=== PATIENT | female | born 1965 | race Caucasian/White ===

== ENCOUNTER 2020-03-29 11:20 | Emergency (ER) | payer BC, OTHER, SELFPAY ==
[2020-03-29 11:33] VITALS: BP 129/59; PULSE 78; RESP 14; TEMP 36.6; O2SAT 100
--- NOTE | 2020-03-29 11:37 | ED.GENADULT ---
HPI - General Adult General Chief complaint: Upper Respiratory Infection Stated complaint: sore throat Time Seen by Provider: 03/29/20 11:37 Source: patient and RN notes reviewed Mode of arrival: ambulatory Limitations: no limitations History of Present Illness HPI narrative: 54-year-old female presents with complaints of sore throat for the past 30 days. Tylenol, last 2 days ago and daily sinus medication with little relief. Symptoms increase over the past 2 weeks with LT otalgia and sore throat. No high fevers, drooling, neck or throat swelling. Pain is bilateral. Hurts to swallow. Exacerbation factors consist of eating and drinking. No rhinorrhea. Nasal congestion. Denies cough or chest congestion. No voice change. No nausea, vomiting, or abdominal pain. Tolerating liquids well. Denies chills, dyspnea, difficulty swallowing, jaw pain, dental pain, facial pain, foreign body sensation, and rash. Remains active. The patient reports she had a recent NEGATIVE COVID-19 test on 03/19/20 due to her daughter being tested POSITIVE. The patient reports she is not waiting for the results of a COVID-19 lab test. The patient reports she do not have fever, chills, weakness, fatigue, myalgia, or facial swelling. The patient reports she do not have a new or worsening cough or shortness of breath. Denies chest pain. The patient reports she do not have any rhinorrhea, congestion, nausea, vomiting, abdominal pain, and diarrhea. Tolerating po intake well. Denies recent traveling. Denies concerns for COVID-19 or exposures been home with limited outdoor exposure except for essential household needs, work, and return home. At this time, patient is not suspected of having COVID-19. Some parts of this dictation were generated by voice recognition software and may contain typographical and/or grammatical inaccuracies. Related Data Home Medications Medication Instructions Recorded Confirmed estradiol 1 patch TRANSDERMAL WEEKLY 03/29/20 03/29/20 levothyroxine [Synthroid] 137 mcg PO DAILY 03/29/20 03/29/20 linaclotide [Linzess] 72 mcg PO DAILY 03/29/20 03/29/20 omeprazole 40 mg PO DAILY 03/29/20 03/29/20 Allergies Allergy/AdvReac Type Severity Reaction Status Date / Time ciprofloxacin Allergy Unknown THROAT Verified 03/29/20 11:43 SWELLS Penicillins Allergy Unknown throat Verified 03/29/20 11:43 swells Sulfa (Sulfonamide Allergy Unknown THROAT Verified 03/29/20 11:43 Antibiotics) CLOSES loratadine [From Claritin] Allergy Swelling Verified 03/29/20 11:44 of Lip/Tongue/Throat Review of Systems Review of Systems: Narrative: CONSTITUTIONAL: Denies fever, chills, sweats. EYES: Denies visual changes, redness, discharge. ENT: Denies rhinorrhea. Complains of sore throat, congestion, LT otalgia. CARDIOVASCULAR: Denies chest pain, palpitations, edema. RESPIRATORY: Denies dyspnea, wheezing, cough. GASTROINTESTINAL: Denies abdominal pain, nausea, vomiting, diarrhea. GENITOURINARY: Denies dysuria, hematuria, abnormal discharge. SKIN: Denies rash or itching. MUSCULOSKELETAL: Denies acute back pain, joint pain, or myalgia. NEUROLOGIC: Denies numbness or focal weakness. PSYCHIATRIC: Denies anxiety or depression. All systems reviewed & are unremarkable except as noted in HPI and below. [facility] Past Medical History Medical History (Updated 03/30/20 @ 00:00 by [facility]) delivery delivered X2 History of gastroesophageal reflux (GERD) Surgical History Surgical History (Updated 03/29/20 @ 12:05 by KIKE Carrillo) H/O section History of hysterectomy History of lumpectomy of left breast Benign History of shoulder surgery LT Family History Family History (Updated 03/29/20 @ 12:06 by KIKE Carrillo) Father Atrial fibrillation Mother History of gastroesophageal reflux (GERD) Lazaro disease Social History Social History (Updated 03/29/20 @ 12:07 by Cooper Aranda
== END 2020-03-29 12:05 | disposition home or self-care (01) ==
PROVIDERS: Emergency Provider Nurse Practitioner Family; PCP Internal Medicine
DX: J02.0 Streptococcal pharyngitis (principal)
CPT/HCPCS: 87804; 87880; 99213; G0463

== ENCOUNTER 2020-04-13 12:10 | Emergency (ER) | payer BC, OTHER, SELFPAY ==
[2020-04-13 12:20] VITALS: BP 114/60; PULSE 72; RESP 20; TEMP 36.8; O2SAT 100
--- NOTE | 2020-04-13 12:39 | ED.GENADULT ---
HPI - General Adult General Chief complaint: Upper Respiratory Infection Stated complaint: sore throat and mono test Time Seen by Provider: 04/13/20 12:39 Source: patient Mode of arrival: ambulatory Limitations: no limitations History of Present Illness HPI narrative: 54-year-old female patient presents to the [facility] with complaints of sore throat. Patient states she was seen here early March and was tested for strep and was positive. Patient states she was put on Z-Juan J at that time but states that her symptoms never did improve. Patient states that she did follow-up with her primary doctor and they put her on clindamycin and about 10 days into the antibiotic she developed allergic reaction to the clindamycin with throat swelling and neck swelling. Patient states that she was taken off of it over the weekend and states that she started feeling a little bit better but then her symptoms return yesterday and today with complaints of worsening sore throat. Denies any fevers, body aches or chills. Denies any cough, chest pain or shortness of breath. Patient states that she called her doctor today and was not able to get them but they recommended that she be tested for mono and strep again as well as possible COVID. Patient states that her daughter did have COVID back in February and she was tested shortly after in February but was negative. Related Data Home Medications Medication Instructions Recorded Confirmed estradiol 1 patch TRANSDERMAL WEEKLY 03/29/20 03/29/20 levothyroxine [Synthroid] 137 mcg PO DAILY 03/29/20 03/29/20 linaclotide [Linzess] 72 mcg PO DAILY 03/29/20 03/29/20 omeprazole 40 mg PO DAILY 03/29/20 03/29/20 Allergies Allergy/AdvReac Type Severity Reaction Status Date / Time ciprofloxacin Allergy Unknown THROAT Verified 04/13/20 12:45 SWELLS Penicillins Allergy Unknown throat Verified 04/13/20 12:45 swells Sulfa (Sulfonamide Allergy Unknown THROAT Verified 04/13/20 12:45 Antibiotics) CLOSES loratadine [From Claritin] Allergy Swelling Verified 04/13/20 12:45 of Lip/Tongue/Throat Review of Systems Review of Systems: Narrative: CONSTITUTIONAL: Denies fever, chills, or sweats. EYES: Denies visual changes, redness, or discharge. ENT: Denies rhinorrhea, congestion, positive sore throat, denies otalgia. CARDIOVASCULAR: Denies chest pain, palpitations, or edema. RESPIRATORY: Denies cough or dyspnea. GASTROINTESTINAL: Denies abdominal pain, nausea, vomiting, or diarrhea. GENITOURINARY: Denies dysuria or hematuria. SKIN: Denies rash or itching. MUSCULOSKELETAL: Denies back pain, joint pain, or myalgia. NEUROLOGIC: Denies headache, numbness, or weakness. PSYCHIATRIC: Denies anxiety or depression. [facility] Past Medical History Medical History delivery delivered X2 History of gastroesophageal reflux (GERD) Surgical History Surgical History H/O section History of hysterectomy History of lumpectomy of left breast Benign History of shoulder surgery LT Family History Family History Father Atrial fibrillation Mother History of gastroesophageal reflux (GERD) [place] disease Social History Social History Smoking status: Never smoker Tobacco type: cigarettes Second hand tobacco smoke exposure: Yes Alcohol intake: current Substance use: never Gender identity (if verbalized by the patient): Female Comments At the time of my signature I agree with nursing past medical history, surgical, social, and family history. There is no relevant family history pertinent to the presenting complaint. Exam Narrative: Exam Narrative: GENERAL: Well-appearing, well-nourished, and in no acute distress. HEAD: Normocephalic, atraumatic. EYES: PERRLA and EOMI.
== END 2020-04-13 13:25 | disposition home or self-care (01) ==
PROVIDERS: Emergency Provider Nurse Practitioner Family; PCP Internal Medicine
DX: Z20.828 Contact with and (suspected) exposure to other viral communicable diseases (principal); J02.9 Acute pharyngitis, unspecified; K21.9 Gastro-esophageal reflux disease without esophagitis
CPT/HCPCS: 36416; 86308; 87081; 87880; 99213; G0463

== ENCOUNTER 2021-11-06 08:37 | Emergency (ER) | payer BC, OTHER, SELFPAY ==
--- NOTE | 2021-11-06 08:38 | ED.GENADULT ---
HPI - General Adult General Chief complaint: Upper Respiratory Infection Stated complaint: Sore Throat Time Seen by Provider: 11/06/21 08:38 Source: patient Mode of arrival: ambulatory Limitations: no limitations History of Present Illness HPI narrative: 56-year-old female patient presents to the [facility] with complaints of a sore throat x1 week. Patient states she is fully vaccinated against COVID. Patient states in the last couple months she has had strep at least twice. Both times she thought she might have COVID it was tested and she tested positive for strep. Patient states she has never tested positive for Covid. Patient also reports that she was diagnosed and treated for breast cancer last year. Patient today complains of sore throat, mild cough and some drainage. Denies any fevers, body aches or chills. Related Data Home Medications Medication Instructions Recorded Confirmed estradiol 1 patch TRANSDERMAL WEEKLY 03/29/20 04/13/20 levothyroxine [Synthroid] 137 mcg PO DAILY 03/29/20 04/13/20 linaclotide [Linzess] 72 mcg PO DAILY 03/29/20 04/13/20 omeprazole 40 mg PO DAILY 03/29/20 04/13/20 Allergies Allergy/AdvReac Type Severity Reaction Status Date / Time ciprofloxacin Allergy Unknown THROAT Verified 11/06/21 09:18 SWELLS Penicillins Allergy Unknown throat Verified 11/06/21 09:18 swells Sulfa (Sulfonamide Allergy Unknown THROAT Verified 11/06/21 09:18 Antibiotics) CLOSES clindamycin Allergy Swelling Verified 11/06/21 09:18 loratadine [From Claritin] Allergy Swelling Verified 11/06/21 09:18 of Lip/Tongue/Throat Review of Systems Review of Systems: CONSTITUTIONAL: Denies fever, chills, or sweats. EYES: Denies visual changes, redness, or discharge. ENT: Denies rhinorrhea, congestion, positive sore throat, denies otalgia. CARDIOVASCULAR: Denies chest pain, palpitations, or edema. RESPIRATORY: Positive mild cough, denies dyspnea. GASTROINTESTINAL: Denies abdominal pain, nausea, vomiting, or diarrhea. GENITOURINARY: Denies dysuria or hematuria. SKIN: Denies rash or itching. MUSCULOSKELETAL: Denies back pain, joint pain, or myalgia. NEUROLOGIC: Denies headache, numbness, or weakness. PSYCHIATRIC: Denies anxiety or depression. [facility] Past Medical History Medical History (Updated 11/06/21 @ 09:35 by KIKE Blevins) Breast cancer 2020 delivery delivered X2 History of gastroesophageal reflux (GERD) Surgical History Surgical History H/O section History of hysterectomy History of lumpectomy of left breast Benign History of shoulder surgery LT Family History Family History Father Atrial fibrillation Mother History of gastroesophageal reflux (GERD) [place] disease Social History Social History Smoking status: Never smoker Tobacco type: cigarettes Second hand tobacco smoke exposure: Yes Alcohol intake: current Substance use: never Gender identity (if verbalized by the patient): Female Sexual Orientation (if Verbalized by the Patient): Straight or Heterosexual Comments At the time of my signature I agree with nursing past medical history, surgical, social, and family history. There is no relevant family history pertinent to the presenting complaint. Exam Narrative: GENERAL: Well-appearing, well-nourished, and in no acute distress. HEAD: Normocephalic, atraumatic. EYES: PERRLA and EOMI. ENT: Nares clear, no rhinorrhea or epistaxis. Mucous membranes moist. NECK: Supple. No lymphadenopathy CHEST: Clear to auscultation. No respiratory distress. HEART: Regular rate and rhythm. No murmur heard. Normal peripheral pulses. ABDOMEN: Soft, nontender, nondistended, normal active bowel sounds. EXTREMITIES: Normal range of motion. No edema. SKIN: Warm, dry, no rash. NEURO: No foca
[2021-11-06 08:44] VITALS: BP 126/46; PULSE 78; RESP 14; TEMP 36.4; O2SAT 99
[2021-11-08 08:05] LABS: SARS-CoV-2 RNA PCR Negative
== END 2021-11-06 09:42 | disposition home or self-care (01) ==
PROVIDERS: Emergency Provider Nurse Practitioner Family; PCP Internal Medicine
DX: J02.9 Acute pharyngitis, unspecified (principal); Z20.822 Contact with and (suspected) exposure to COVID-19; Z85.3 Personal history of malignant neoplasm of breast; K21.9 Gastro-esophageal reflux disease without esophagitis
CPT/HCPCS: 87081; 87426; 87880; 99213; C9803; G0463; U0003; U0005

== ENCOUNTER 2023-02-05 11:05 | Emergency (ER) | payer BC, OTHER, SELFPAY ==
[2023-02-05 11:11] VITALS: BP 115/47; PULSE 68; RESP 20; TEMP 36.7; O2SAT 99
--- NOTE | 2023-02-05 11:42 | ED.GENADULT ---
HPI - General Adult General Chief complaint: Upper Respiratory Infection Stated complaint: Sore Throat Source: patient Mode of arrival: ambulatory Limitations: no limitations History of Present Illness HPI narrative: Patient presents for evaluation of sore throat for last 2 days. She reports some sinus congestion, chest pressure and lymphadenopathy in the neck. No fever, chills, nausea, vomiting. She has been taking ibuprofen for her symptoms, which seems to help. No recent sick contacts to her knowledge. She does not smoke. Related Data Home Medications Medication Instructions Recorded Confirmed estradiol 0.075 mg/24 hr weekly 1 patch transdermal WEEKLY 03/29/20 02/05/23 transdermal patch levothyroxine 137 mcg tablet 137 mcg PO DAILY 03/29/20 02/05/23 (Synthroid) linaclotide 72 mcg capsule 72 mcg PO DAILY 03/29/20 02/05/23 (Linzess) omeprazole 40 mg capsule,delayed 40 mg PO DAILY 03/29/20 02/05/23 release cyanocobalamin (vitamin B-12) 1,000 mcg IM MONTHLY 02/05/23 02/05/23 1,000 mcg/mL injection solution metformin 500 mg tablet 500 mg PO DAILY 02/05/23 02/05/23 Allergies Allergy/AdvReac Type Severity Reaction Status Date / Time ciprofloxacin Allergy Unknown THROAT Verified 02/05/23 11:08 SWELLS Penicillins Allergy Unknown throat Verified 02/05/23 11:08 swells Sulfa (Sulfonamide Allergy Unknown THROAT Verified 02/05/23 11:08 Antibiotics) CLOSES clindamycin Allergy Swelling Verified 02/05/23 11:08 loratadine [From Claritin] Allergy Swelling Verified 02/05/23 11:08 of Lip/Tongue/Throat Review of Systems Review of Systems: CONSTITUTIONAL: Denies fever, chills, or sweats. EYES: Denies visual changes, redness, or discharge. ENT: Reports sore throat. denies rhinorrhea, congestion, sor otalgia. CARDIOVASCULAR: Reports some chest pressure. Denies chest pain, palpitations, or edema. RESPIRATORY: Denies cough or dyspnea. GASTROINTESTINAL: Denies abdominal pain, nausea, vomiting, or diarrhea. GENITOURINARY: Denies dysuria or hematuria. SKIN: Denies rash or itching. MUSCULOSKELETAL: Denies back pain, joint pain, or myalgia. LYMPHATICS: Reports cervical lymphadenopathy. NEUROLOGIC: Denies headache, numbness, dizziness, or weakness. PSYCHIATRIC: Denies anxiety or depression. [facility] Past Medical History Medical History Breast cancer 2020 delivery delivered X2 History of gastroesophageal reflux (GERD) Surgical History Surgical History H/O section History of hysterectomy History of lumpectomy of left breast Benign History of shoulder surgery LT Family History Family History Father Atrial fibrillation Mother History of gastroesophageal reflux (GERD) [place] disease Social History Social History Smoking status: Never smoker Tobacco type: cigarettes Second hand tobacco smoke exposure: Yes Alcohol intake: current Substance use: never Living arrangements: with family Occupation/Education: occupation Gender identity (if verbalized by the patient): Female Sexual Orientation (if Verbalized by the Patient): Straight or Heterosexual Exam Narrative: GENERAL: Well-appearing, well-nourished, and in no acute distress. HEAD: Normocephalic, atraumatic. EYES: PERRLA and EOMI. ENT: Nares clear, no rhinorrhea or epistaxis. Mucous membranes moist. Posterior pharyngeal erythema without exudate. Uvula is midline. Bilateral TMs pearly luo nonbulging NECK: Supple. No adenopathy or masses. No carotid bruits or JVD CHEST: Clear to auscultation. No respiratory distress. No wheezes rales or rhonchi HEART: Regular rate and rhythm. No murmur heard. Normal peripheral pulses. ABDOMEN: Soft, nontender,
== END 2023-02-05 11:42 | disposition home or self-care (01) ==
PROVIDERS: Emergency Provider Nurse Practitioner; PCP Internal Medicine
DX: J02.0 Streptococcal pharyngitis (principal); K21.9 Gastro-esophageal reflux disease without esophagitis; Z85.3 Personal history of malignant neoplasm of breast; Z90.12 Acquired absence of left breast and nipple
CPT/HCPCS: 87880; 99213; G0463

== ENCOUNTER 2023-02-16 16:08 | Emergency (ER) | payer BC, OTHER, SELFPAY ==
[2023-02-16 16:12] VITALS: BP 114/45; PULSE 72; RESP 20; TEMP 36.4; O2SAT 100
--- NOTE | 2023-02-16 16:27 | ED.URI ---
HPI - URI/Sore Throat General Chief Complaint: Upper Respiratory Infection Stated Complaint: sore throat History of Present Illness HPI Narrative: Pt is a 57 y/o female, returns to with sore throat, onset 3 days ago without associated fevers. She notes she was diagnosed with and treated for strep 02/05/2023, she completed a Z pack and her symptoms improved but never seemed to resolve fully. She now has pain in the left ear as well. She denies associated CP, SOB, cough, abdominal pain, NVDC or urinary symptoms. SHe is taking APAP for discomfort with moderate relief. She has no other complaints. Related Data Home Medications Medication Instructions Recorded Confirmed estradiol 0.075 mg/24 hr weekly 1 patch transdermal WEEKLY 03/29/20 02/16/23 transdermal patch levothyroxine 137 mcg tablet 137 mcg PO DAILY 03/29/20 02/16/23 (Synthroid) linaclotide 72 mcg capsule 72 mcg PO DAILY 03/29/20 02/16/23 (Linzess) omeprazole 40 mg capsule,delayed 40 mg PO DAILY 03/29/20 02/16/23 release cyanocobalamin (vitamin B-12) 1,000 mcg IM MONTHLY 02/05/23 02/16/23 1,000 mcg/mL injection solution metformin 500 mg tablet 500 mg PO DAILY 02/05/23 02/16/23 Allergies Allergy/AdvReac Type Severity Reaction Status Date / Time ciprofloxacin Allergy Unknown THROAT Verified 02/16/23 16:23 SWELLS Penicillins Allergy Unknown throat Verified 02/16/23 16:23 swells Sulfa (Sulfonamide Allergy Unknown THROAT Verified 02/16/23 16:23 Antibiotics) CLOSES clindamycin Allergy Swelling Verified 02/16/23 16:23 loratadine [From Claritin] Allergy Swelling Verified 02/16/23 16:23 of Lip/Tongue/Throat Review of Systems Constitutional: Comments: refer to HPI, no fever ENT: Comments: refer to HPI Respiratory: Comments: no cough PMFSH Past Medical History Medical History Breast cancer 2020 delivery delivered X2 History of gastroesophageal reflux (GERD) Surgical History Surgical History H/O section History of hysterectomy History of lumpectomy of left breast Benign History of shoulder surgery LT Family History Family History Father Atrial fibrillation Mother History of gastroesophageal reflux (GERD) Lazaro disease Social History Social History Smoking status: Never smoker Tobacco type: cigarettes Second hand tobacco smoke exposure: Yes Alcohol intake: current Substance use: never Living arrangements: with family Occupation/Education: occupation Gender identity (if verbalized by the patient): Female Sexual Orientation (if Verbalized by the Patient): Straight or Heterosexual Exam Const: General: cooperative, healthy appearing, comfortable, no acute distress, well developed, alert, awake and Physically active Nutritional Appearance: average body habitus Orientation/consciousness: oriented to person Limitations: no limitations HENMT: Head: normal to inspection, No palpable skull fracture present, normocephalic and atraumatic Ears: hearing grossly normal bilaterally and external ears normal Mouth: Yes Normal oral and palatal mucosa present and Yes lip normal Throat: posterior oropharynx normal, postnasal drainage and tonsils absent Other: pt has marked retraction of the left TM with a serous pattern present. No erythema or purulent effusion noted. The right TM has a serous pattern without TM retraction. Eyes: General: appearance normal, both eyes and all related structures Visual Thibodeaux: normal visual thibodeaux by confrontation Pupils: Equal, round and reactive pupils present EOM: EOMs intact bilaterally Neck: Neck: normal visual inspection, full ROM, no lymphadenopathy, no meningeal signs, trachea
== END 2023-02-16 16:43 | disposition home or self-care (01) ==
PROVIDERS: Emergency Provider Nurse Practitioner Family; PCP Internal Medicine
DX: H65.02 Acute serous otitis media, left ear (principal); H69.92 Unspecified Eustachian tube disorder, left ear; Z85.3 Personal history of malignant neoplasm of breast; K21.9 Gastro-esophageal reflux disease without esophagitis
CPT/HCPCS: 87081; 87880; 99213; G0463

== ENCOUNTER 2024-05-07 16:08 | Emergency (ER) | payer BC, OTHER, SELFPAY ==
[2024-05-07 16:21] VITALS: BP 131/60; PULSE 72; RESP 18; TEMP 36.4; O2SAT 100
[2024-05-07 17:16] LABS: EDCOVIDSCREEN Negative (Negative); EDSTREPNEGPOS1 Negative (Negative)
[2024-05-07 17:20] LABS: EDINFLUASCREEN Negative (Negative); EDINFLUBSCREEN Negative (Negative)
--- NOTE | 2024-05-07 17:28 | ED.URI ---
HPI - URI/Sore Throat General Chief Complaint: Upper Respiratory Infection Stated Complaint: Sore Throat/Fever Time Seen by Provider: 05/07/24 17:20 Source: patient Mode of arrival: ambulatory Limitations: no limitations History of Present Illness HPI Narrative: 58 year old female presents to [facility] care with complaints of sore throat, sinus congestion, low grade fever, chills since Monday evening. Patient reports that she just returned from [place] and other she went with are ill. 2 have similar sinus stuff and one has COVID. Patient reports that her tongue is burning and her taste is off. Patient reports that she has been taking NyQuil for her symptoms MD elicited complaint: fever, sore throat, rhinorrhea and nasal congestion Onset (ago): day(s) (3 days) Pain scale (0-10): 3 Able to tolerate fluids by mouth: Yes Treatments prior to arrival: other (NyQuil) Related Data Home Medications Medication Instructions Recorded Confirmed estradiol 0.075 mg/24 hr weekly 1 patch transdermal WEEKLY 03/29/20 02/16/23 transdermal patch levothyroxine 137 mcg tablet 137 mcg PO DAILY 03/29/20 02/16/23 (Synthroid) linaclotide 72 mcg capsule 72 mcg PO DAILY 03/29/20 02/16/23 (Linzess) omeprazole 40 mg capsule,delayed 40 mg PO DAILY 03/29/20 02/16/23 release cyanocobalamin (vitamin B-12) 1,000 mcg IM MONTHLY 02/05/23 02/16/23 1,000 mcg/mL injection solution metformin 500 mg tablet 500 mg PO DAILY 02/05/23 02/16/23 bupropion HCl 150 mg 24 hr tablet, mg PO 05/07/24 05/07/24 extended release pantoprazole 40 mg tablet,delayed mg PO 05/07/24 release topiramate 25 mg tablet mg 05/07/24 Allergies Allergy/AdvReac Type Severity Reaction Status Date / Time ciprofloxacin Allergy Unknown THROAT Verified 02/16/23 16:23 SWELLS Penicillins Allergy Unknown throat Verified 02/16/23 16:23 swells Sulfa (Sulfonamide Allergy Unknown THROAT Verified 02/16/23 16:23 Antibiotics) CLOSES clindamycin Allergy Swelling Verified 02/16/23 16:23 loratadine [From Claritin] Allergy Swelling Verified 02/16/23 16:23 of Lip/Tongue/Throat Review of Systems Review of Systems: CONSTITUTIONAL: Report malaise, chills, sweats, or fever. EYES: Denies visual changes, redness, or discharge. ENT: Reports rhinorrhea, congestion, sinus pain, no otalgia and positive for sore throat. CARDIOVASCULAR: Denies chest pain, palpitations, or edema. RESPIRATORY: Reports rare cough.? Denies dyspnea. GASTROINTESTINAL: Denies abdominal pain, nausea, vomiting, diarrhea SKIN: Denies rash or itching. MUSCULOSKELETAL: Denies myalgia. NEUROLOGIC: positive for headache. All systems reviewed & are unremarkable except as noted in HPI and below PMFSH Past Medical History Medical History Breast cancer 2020 delivery delivered X2 History of gastroesophageal reflux (GERD) Surgical History Surgical History H/O section History of hysterectomy History of lumpectomy of left breast Benign History of shoulder surgery LT Family History Family History Father Atrial fibrillation Mother History of gastroesophageal reflux (GERD) [place]azaro disease Social History Social History Smoking status: Never smoker Tobacco type: cigarettes Second hand tobacco smoke exposure: Yes Alcohol intake: current Substance use: never Living arrangements: with family Occupation/Education: occupation Gender identity (if verbalized by the patient): Female Sexual Orientation (if Verbalized by the Patient): Straight or Heterosexual Comments At time of signature, agree with nursing past medical, surgical, social and family history. There is no relevant family history pertinent to the presenting compla
== END 2024-05-07 17:43 | disposition home or self-care (01) ==
PROVIDERS: Emergency Provider Registered Nurse; PCP Internal Medicine
DX: J06.9 Acute upper respiratory infection, unspecified (principal); J02.9 Acute pharyngitis, unspecified; Z20.822 Contact with and (suspected) exposure to COVID-19; K21.9 Gastro-esophageal reflux disease without esophagitis; Z85.3 Personal history of malignant neoplasm of breast; Z90.12 Acquired absence of left breast and nipple
CPT/HCPCS: 87081; 87635; 87804; 87880; 99213; G0463

== ENCOUNTER 2024-11-22 09:03 | Emergency (ER) | payer BC, OTHER, SELFPAY ==
[2024-11-22 09:07] VITALS: BP 110/54; PULSE 81; RESP 16; TEMP 36.3; O2SAT 96
--- NOTE | 2024-11-22 09:18 | ED_ITS ---
HPI - URI/Sore Throat General Chief Complaint: Headache Stated Complaint: poss sinus infection Time Seen by Provider: 11/22/24 09:22 Source: patient and RN notes reviewed Mode of arrival: ambulatory Limitations: no limitations History of Present Illness HPI Narrative: 59 y/o female with history of migraines presented for complaint of frontal headache and left ear pain. Onset yesterday. She reports she had a headache to back of head 2 nights ago for which she took advil and sinus med. Currently says the left ear pain is mild. Denies tinnitus, dizziness, ear drainage, nasal congestion or drainage, n/v/d/f/c. MD elicited complaint: cough Related Data Home Medications ?Medication ?Instructions ?Recorded ?Confirmed ?Last Taken ?Type estradiol 0.075 mg/24 hr weekly 1 patch transdermal WEEKLY 03/29/20 02/16/23 Unknown History transdermal patch levothyroxine 137 mcg tablet 137 mcg PO DAILY 03/29/20 02/16/23 Unknown History (Synthroid) linaclotide 72 mcg capsule 72 mcg PO DAILY 03/29/20 02/16/23 Unknown History (Linzess) omeprazole 40 mg capsule,delayed 40 mg PO DAILY 03/29/20 02/16/23 Unknown History release cyanocobalamin (vitamin B-12) 1,000 mcg IM MONTHLY 02/05/23 02/16/23 Unknown History 1,000 mcg/mL injection solution metformin 500 mg tablet 500 mg PO DAILY 02/05/23 02/16/23 Unknown History bupropion HCl 150 mg 24 hr tablet, mg PO 05/07/24 05/07/24 Unknown History extended release pantoprazole 40 mg tablet,delayed mg PO 05/07/24 Unknown History release topiramate 25 mg tablet mg 05/07/24 Unknown History Allergies Allergy/AdvReac Type Severity Reaction Status Date / Time ciprofloxacin Allergy Unknown THROAT Verified 11/22/24 09:23 SWELLS Penicillins Allergy Unknown throat Verified 11/22/24 09:23 swells Sulfa (Sulfonamide Allergy Unknown THROAT Verified 11/22/24 09:23 Antibiotics) CLOSES clindamycin Allergy Swelling Verified 11/22/24 09:23 loratadine (From Claritin) Allergy Swelling Verified 11/22/24 09:23 of Lip/Tongue/Throat Review of Systems Review of Systems: CONSTITUTIONAL: denies malaise, chills, sweats, fever EYES: Denies visual changes, redness, or discharge ENT:denies rhinorrhea, congestion, sinus pain, sore throat reports left ear pain CARDIOVASCULAR: Denies chest pain, palpitations, edema RESPIRATORY: Reports cough, post nasal drainage. Denies dyspnea GASTROINTESTINAL: Denies abdominal pain, nausea, vomiting, diarrhea SKIN: Denies rash or itching MUSCULOSKELETAL: Endorses myalgia NEUROLOGIC: reports frontal headache All systems reviewed & are unremarkable except as noted in HPI and below PMFSH Past Medical History Medical History Breast cancer 2020 delivery delivered X2 History of gastroesophageal reflux (GERD) Surgical History Surgical History H/O section History of hysterectomy History of lumpectomy of left breast Benign History of shoulder surgery LT Family History Family History Father Atrial fibrillation Mother History of gastroesophageal reflux (GERD) Schoolcraft disease Social History Social History Smoking status: Never smoker Tobacco type: cigarettes Second hand tobacco smoke exposure: Yes Alcohol intake: current Substance use: never Living arrangements: with family Occupation/Education: occupation Gender identity (if verbalized by the patient): Female Sexual Orientation (if Verbalized by the Patient): Straight or Heterosexual Comments At time of signature, I have reviewed and agree with nursing past medical, surgical, social and family history unless otherwise noted. Please see nursing chart for further information. There is no relevant family history pertinent to the presenting complaint Exam Narrative: GENERAL: well-appearing, nontoxic no acute distress. HEAD: Normocephalic EYES: conjunctivae clear ENT: Mucous membranes moist. No nasal drainage. TMs pearly luo with dull light reflex bilaterally; no tragal tenderness. NECK: Supple. No lymphadenopathy CHEST: Clear to auscultation, breath sounds equal. HEART: Regular rate and rhythm. SKIN: Warm, dry, no rash. NEURO: Alert and oriented x3. Course Course Emergency Course: Patient is aware of diagnosis, understands and agrees to treatment plan. Anticipatory guidance given. Patient agrees to follow-up as directed and is aware of reasons to seek care at the emergency department. Portions of this record may have been created with voice recognition software Level of Care: Express Care Visit Vital Signs Vital signs: Vital Signs Temperature 97.3 F L 11/22/24 09:07 Pulse Rate 81 11/22/24 09:07 Respiratory Rate 16 11/22/24 09:07 Blood Pressure 110/54 L 11/22/24 09:07 Pulse Oximetry 96 11/22/24 09:07 Oxygen Delivery Room Air 11/22/24 09:07 Temperature 97.3 F L 11/22/24 09:07 Pulse Rate 81 11/22/24 09:07 Respiratory Rate 16 11/22/24 09:07 Blood Pressure 110/54 L 11/22/24 09:07 Pulse Oximetry 96 11/22/24 09:07 Oxygen Delivery Room Air 11/22/24 09:07 reviewed MDM - URI/Sore Throat MDM Narrative Medical decision making narrative: Discussed physical exam findings, No apparent otitis media. Advised supportive measures and signs/symptoms to go to the ER. Pt is appropriate for outpt treatment and f/u. Differential Diagnosis Differential diagnosis: Likely upper respiratory infection, sinusitis and viral infection Discharge Plan Discharge Clinical Impression: Headache Patient Disposition: Home, Self-Care Condition: Stable Instructions: Antibiotic Form, Migraine Headache (ED) Additional Instructions: Rest in a cool dark room Avoid screens (computers, tablets, phones, television) Drink plenty fluids. Continue antihistamine Tylenol 1000mg every 8 hours as needed, ibuprofen as prescribed ( do not take additional NSAIDs Advil, Aleve, naproxen, Motrin) Follow up with your primary care provider in 1 week Go to the ER for worsening symptoms or concerns Patient Language: Azerbaijani Prescriptions: New ibuprofen 800 mg tablet 800 mg PO TID PRN (Reason: pain) Qty: 15 0RF No Action levothyroxine [Synthroid] 137 mcg Tablet 137 mcg PO DAILY omeprazole 40 mg Capsule,Delayed Release(Dr/Ec) 40 mg PO DAILY estradiol 0.075 mg/24 hr Patch Weekly 1 patch TRANSDERMAL WEEKLY Linzess 72 mcg Capsule 72 mcg PO DAILY metformin 500 mg tablet 500 mg PO DAILY cyanocobalamin (vitamin B-12) 1,000 mcg/mL solution 1,000 mcg IM MONTHLY topiramate 25 mg tablet pantoprazole 40 mg tablet,delayed release (DR/EC) PO bupropion HCl 150 mg tablet extended release 24 hr PO fluconazole [Diflucan] 150 mg tablet 150 mg PO Q72H Qty: 2 0RF Rx Instructions: as a single dose Follow-up/Referrals: Aleah,Maximiliano Aranda MD [Primary Care Provider] -
--- OUTSIDE RECORDS SUMMARY | 2024-11-22 09:24 | XMS_ITS | Encounter Summary ---
Author Organization [facility] Address [address] [place] [address] Phone Care Team Providers Care Lead Systems Analyst Name Role Phone Maximiliano Bullard MD Primary Care Provider [phone] Danyell Goldberg APRN, PHYSICIAN REPRESENTATIVE Unavailable Reason for Visit * Reason Comments Medication Refill Encounter Details Date Type Department Care Team (Late st Contact Info) Description 02/23/2022 Refill [facility] - G[facility]ology - [place] [address] [place] [id number] Kian Marilee Funmilayo, PAC [address] [place] [address] Medication Refill Social History Tobacco Use Types Packs/Day Years Used Date Smoking Tobacco: Never Smokeless Tobacco: Never Alcohol Use Standard Drinks/Week Comments Yes 2 (1 standard drink = 0.6 oz pur e alcohol) 1-2x weekly Sexually Active Control Partners Comments Yes Comments No Sex and Gender Information Value Date Recorded Sex Assigned at Not on file Legal Sex Female 12:23 AM CDT Gender Identity Not on file Sexual Orientation Not on file 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 Pt had no questions at this time. * Telephone Encounter - Marilee Langston PAC - 02/24/2022 4:43 PM CDT Please advise prescription was renewed for 90 days. Further refills are to be a obtained from her primary care provider she will follow-up with GI in 3 years for her EGD. Follow-up for IBS in 1 year. * Telephone Encounter - Mackenzie Arroyo RN - 02/24/2022 4:31 PM CDT Pantoprazole order pended, please review and advise. Per ov note from 10/26/2021 patient is to follow up in about 1 year (around 10/26/2022) for GERD and IBS. Per EGD path report from 11/26/2021: Yaya Nicholson MD 12/07/2021 ??6:14 PM CDT Mild inflammation only No Morin's esophagus noted. Continue Protonix for acid reflux and may reduce it to 1 every other day if symptoms are under control Repeat EGD in 3 years Follow-up with PCP and return to GI as needed documented in this encounter Plan of Treatment Upcoming Encounters Date Type Department Care Team (Late st Contact Info) Description 07/30/2025 2:00 PM PERSONNEL COORDINATOR Office Visit [facility] Oncology Services [address] [place] [phone] Héctor Casanova MD [address] [place] [address] Discharge Disposition: Discharged to home or Selfcare documented as of this encounter Visit Diagnoses Diagnosis Gastroesophageal reflux disease Esophageal reflux documented in this encounter Care Teams Lead Systems Analyst Relationship Specialty Start Date End Date Maximiliano Bullard MD [address] [place] [phone] PCP - General 04/21/16 Danyell Goldberg APRN, PHYSICIAN REPRESENTATIVE [address] [place] [address] Nurse Practitioner Advanced Practice Nurse 12/05/22 documented as of this encounter
--- OUTSIDE RECORDS SUMMARY | 2024-11-22 09:24 | XMS_ITS | Encounter Summary ---
Author Organization [facility] Address [address] 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 No / Unsure 11/26/2021 6:43 AM CDT documented as of this encounter Miscellaneous Notes * Telephone Encounter - Mackenzie Arroyo RN - 12/02/2021 8:55 AM CDT Medication refilled and signed per [facility] chronic medication standing order for pediatric and adult patients. documented in this encounter Plan of Treatment Upcoming Encounters Date Type Department Care Team (Late st Contact Info) Description 07/30/2025 2:00 PM BIZTALK ARCHITECT [facility] [address] [place] [address] Héctor Casanova MD [address] [place] [address] Discharge Disposition: Discharged to home or Selfcare documented as of this encounter Visit Diagnoses Diagnosis Gastroesophageal reflux disease Esophageal reflux documented in this encounter Care Teams Single Stayer Operator Relationship Specialty Start Date End Date Maximiliano Bullard MD [address] [place] [phone] PCP - General 04/21/16 Danyell Goldberg SCHOOL SPEECH LANGUAGE PATHOLOGIST, ENCODING MACHINE OPERATOR [address] [place] [address] Nurse Practitioner Advanced Practice Nurse 12/05/22 documented as of this encounter
--- OUTSIDE RECORDS SUMMARY | 2024-11-22 09:24 | XMS_ITS ---
Author Organization [facility] Address [address] [place] [address] Phone Care Team Providers Care Journeyman Molder Name Role Phone Unavailable Unavailable Unavailable Plan of Treatment No Plan of Treatment Recorded Assessments Includes: Assessments for all patient encounters No Assessments Recorded Medical Equipment - Implanted Devices Includes: Current and historical Devices No Medical Equipment Recorded Medications Administered Includes: Administered Medications in patient's chart No Administered Medications Recorded Results Includes: Results from 11/23/2023 through 11/22/2024 No Results Recorded For Specified Dates History of Present Illness History of Present Illness not supported for this document type No History of Present Illness Recorded Social History No Social History Recorded - Smoking Status Unknown Medical History Includes: Medical History in patient's chart No Medical History Recorded Family History Includes: Family History in patient's chart No Family History Recorded Review of Systems Review of Systems not supported for this document type No Review of Systems Recorded Mental Status No Mental Status Recorded Functional Status No Functional Status Recorded Physical Exam Physical Exam not supported for this document type No Physical Exam Recorded Clinical Notes Includes: Signed Clinical Notes starting from 09/16/2022 No Clinical Notes Recorded
--- OUTSIDE RECORDS SUMMARY | 2024-11-22 09:25 | XMS_ITS | Clinical Summary ---
Author Organization [facility] Address [address] [place] [address] Phone Care Team Providers Care Label Cutter Name Role Phone Unavailable Unavailable Unavailable Reason for Visit and Chief Complaint NEW PATIENT VISIT Plan of Treatment No Plan of Treatment Recorded Assessments Includes: Assessments from this encounter No Assessments Recorded Medical Equipment - Implanted Devices Includes: Current Devices No Medical Equipment Recorded Medications Administered Includes: Administered Medications from this encounter No Administered Medications Recorded Results Includes: Results discussed during this encounter No Results Recorded For Specified Dates History of Present Illness Includes: History of Present Illness from this encounter No History of Present Illness Recorded Social History No Social History Recorded - Smoking Status Unknown Medical History Includes: Medical History addressed during this encounter No Medical History Recorded Family History Includes: Family History addressed during this encounter No Family History Recorded Review of Systems Includes: Review of Systems from this encounter No Review of Systems Recorded Mental Status Includes: Mental Status from this encounter No Mental Status Recorded Functional Status Includes: Functional Status from this encounter No Functional Status Recorded Physical Exam Includes: Physical Exam from this encounter No Physical Exam Recorded Encounters Encounter Provider Location Date Check-In Time Check- Out Time Diagnosis NEW PATIENT VISIT [facility] 8 3:30PM 11:59PM Clinical Notes Includes: Clinical Notes from this encounter No Clinical Notes Recorded
--- OUTSIDE RECORDS SUMMARY | 2024-11-22 09:25 | XMS_ITS | Encounter Summary ---
Author Organization [facility] Address [address] [place] [address] Care Team Providers Care Home Health Clinician Name Role Phone Maximiliano Bullard MD Primary Care Provider [phone] Reason for Visit * Reason Onset Date Comments closing case 12/27/2021 Encounter Details Date Type Department Care Team (Late st Contact Info) Description 12/27/2021 Telephone [facility] Primary Care [address] [place] [address] Maximiliano Bullard MD [address] [place] [address] [address] [place] [address] closing case Social History Tobacco Use Types Packs/Day Years Used Date Smoking Tobacco: Never Smokeless Tobacco: Never Alcohol Use Standard Drinks/Week Comments Yes 5 (1 standard drink = 0.6 oz pur e alcohol) Comments No Sex and Gender Information Value Date Recorded Sex Assigned at Not on file Legal Sex Female 3:31 AM CERTIFIED PROSTHETIST/ORTHOTIST Gender Identity Not on file Sexual Orientation Not on file documented as of this encounter Miscellaneous Notes * Telephone Encounter - Joaquina Luciano Catalina - 12/27/2021 12:52 PM CDT Name of PCP Provider or Prescribing Provider: Maximiliano Bullard MD Next office visit: 05/16/2022 Caller: Linda horse stud manager at [facility] Message: Linda called stating she was Unable to reach patient, Linda stated they will be closing patient case. Please advise. Call back Number: [phone] documented in this encounter Plan of Treatment Upcoming Encounters Date Type Department Care Team (Late st Contact Info) Description 04/16/2025 3:00 PM CDT Office Visit [facility] Primary Care [address] [place] [address] Maximiliano Bullard MD [address] [place] [address] [address] [place] [address] documented as of this encounter Visit Diagnoses Not on filedocumented in this encounter Care Teams Home Health Clinician Relationship Specialty Start Date End Date Maximiliano Bullard MD PCP - General Internal Medicine 03/07/16 documented as of this encounter
--- OUTSIDE RECORDS SUMMARY | 2024-11-22 09:25 | XMS_ITS | Encounter Summary ---
Author Organization [facility] Address [address] [place] [address] Phone Care Team Providers Care Tunnel Drier Operator Name Role Phone Maximiliano Bullard MD Primary Care Provider [phone] Danyell Goldberg APRN, KEY FILER Unavailable Encounter Details Date Type Department Care Team (Late Contact Info) Description 10/28/2024 Results Follow-Up [facility] - Gastroenterology - [place] [address] [place] [address] Danyell Goldberg APRN, KEY FILER [address] [place] [address] Social History Tobacco Use Types Packs/Day Years Used Date Smoking Tobacco: Never Smokeless Tobacco: Never Alcohol Use Standard Drinks/Week Comments Yes 2 (1 standard drink = 0.6 oz pur e alcohol) Sexually Active Control Partners Comments Yes Male Comments No Sex and Gender Information Value Date Recorded Sex Assigned at Not on file Legal Sex Female 12:23 AM CDT Gender Identity Not on file Sexual Orientation Not on file 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 on fi le Not on file documented as of this encounter Plan of Treatment Upcoming Encounters Date Type Department Care Team (Late Contact Info) Description 07/30/2025 2:00 PM RN PERINATAL Office Visit [facility] - Cancer Center Oncology Services [address] [place] [phone] Héctor Casanova MD [address] [place] [address] Discharge Disposition: Discharged to home or Selfcare documented as of this encounter Visit Diagnoses Not on filedocumented in this encounter Care Teams Tunnel Drier Operator Relationship Specialty Start Date End Date Maximiliano Bullard MD [address] [place] [phone] PCP - General 04/21/16 Danyell Goldberg APRN, KEY FILER [address] [place] [address] Nurse Practitioner Advanced Practice Nurse 12/05/22 documented as of this encounter
--- OUTSIDE RECORDS SUMMARY | 2024-11-22 09:25 | XMS_ITS | Encounter Summary ---
Author Organization [facility] Address [address] [place] [address] Phone Care Team Providers Care Drilling Manager Name Role Phone Maximiliano Bullard MD Primary Care Provider + Jace Hernandez MD PhD Unavailable Diya Crfot MD PhD Unavaila ble Jaxson Baig MD Unavailable [phone] Encounter Details Date Type Department Care Team (Late st Contact Info) Description 11/03/2020 Telephone [facility] Oncology [facility] 7th [place] [address] Faviola Gaston Social History Tobacco Use Types Packs/Day Years Used Date Smoking Tobacco: Never Alcohol Use Standard Drinks/Week Comments Yes 0 (1 standard drink = 0.6 oz pur e alcohol) Comments No Sex and Gender Information Value Date Recorded Sex Assigned at Not on file Legal Sex Female 2:37 PM DIESEL SERVICE TECHNICIAN Gender Identity Female 10/24/2022 6:31 AM DIESEL SERVICE TECHNICIAN Sexual Orientation Straight 01/21/2021 6: 44 AM CDT documented as of this encounter Plan of Treatment Not on file documented as of this encounter Visit Diagnoses Not on filedocumented in this encounter Additional Health Concerns Infection Onset Date Last Indicated Resolved Time COVID: Suspected 09/10/2021 09/10/2021 09/10/2021 1:32 PM DIESEL SERVICE TECHNICIAN COVID: Suspected 09/10/2021 09/10/202109/1109/11/2021 11:37 AM DIESEL SERVICE TECHNICIAN documented as of this encounter Care Teams Drilling Manager Relationship Specialty Start Date End Date Maximiliano Bullard MD PCP - General 05/04/18 Jace Hernandez MD PhD [address] [place] [address] Radiation Oncologist Radiation Oncology 01/18/21 Diya Croft MD PhD [address] [place] [address] Referring Physician Surgical Oncology 01/18/21 Jaxson Baig MD [address] [place] [address] Consulting Physician Medical Oncology 03/26/21 documented as of this encounter
--- OUTSIDE RECORDS SUMMARY | 2024-11-22 09:25 | XMS_ITS ---
Care Plan - [facility] Created on: November 22, 2024 TERESITA MURRAY : 1965 Sex: Female Author Organization [facility] Address [address] [place] [address] Phone Care Team Providers Care Historical Archeologist Name Role Phone Unavailable Unavailable Unavailable
--- OUTSIDE RECORDS SUMMARY | 2024-11-22 09:25 | XMS_ITS | Encounter Summary ---
Author Organization [facility] Address [address] 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 Would provider be willing to review due to Dr. Fuentes is out of office until 11/26/2024. documented in this encounter Plan of Treatment Upcoming Encounters Date Type Department Care Team (Late st Contact Info) Description 07/30/2025 2:00 PM SUPERCALENDER OPERATOR Office Visit [facility] - Cancer Center Oncology Services [address] [place] [phone] Héctor Casanova MD [address] [place] [address] Discharge Disposition: Discharged to home or Selfcare documented as of this encounter Visit Diagnoses Not on filedocumented in this encounter Care Teams Slot Key Person Relationship Specialty Start Date End Date Maximiliano Bullard MD [address] [place] [phone] PCP - General 04/21/16 Danyell Goldberg APRN, MARKETING ROTATION ASSOCIATE [address] [place] [address] Nurse Practitioner Advanced Practice Nurse 12/05/22 documented as of this encounter
--- OUTSIDE RECORDS SUMMARY | 2024-11-22 09:25 | XMS_ITS | Clinical Summary ---
Author Organization [facility] Address [address] [address] Phone Care Team Providers Care Internal Audit Director Name Role Phone Maximiliano Bullard MD Primary Care Provider [phone] Danyell Goldberg APRN, RETAIL ZONE SPECIALIST Unavailable Allergies Active Allergy Reactions Criticality Noted Date Comments Sulfamethoxazole-Trimethoprim Anaphylaxis High 04/23 Ciprofloxacin Anaphylaxis High 12/28/2016 Loratadine Anaphylaxis High 12/22/2016 Coconut (Cocos Nucifera) Rash 03/07/2016 Walnuts Anaphylaxis High 01/23/2018 Penicillins Anaphylaxis High Medications EPINEPHRINE HCL, ANAPHYLAXIS, IM by Intramuscular route as needed. Active Cholecalciferol (VITAMIN D PO) Take 1 Cap by mouth daily. Active estradiol (CLIMARA) 0.05 MG/24HR PATCH WEEKLY 1 Patch by Transdermal route every 7 days. Active Cetirizine HCl (ZYRTEC ALLERGY PO) Take by mouth daily as needed. Active cyclobenzaprine (FLEXERIL) 10 MG Tablet TAKE ONE TABLET BY MOUTH THREE TIMES A DAY NEEDED FOR SPASMS 0 Active Synthroid 125 MCG Tablet Take 125 mcg by mouth daily. 0 Active B-D 3CC LUER-BIBIANA SYR 25GX1/2 25G X 1-1/2 3 ML Misc FOR B12 INJECTION MONTHLY. 0 Active Linzess 290 MCG Capsule TAKE 1 CAP BY MOUTH EVERY MORNING BEFORE BREAKFAST 30 Cap 2 1 Active Additional Information Patient taking differently: 290 mcg DAILY PRN, Reported on 11/15/2024 ALPRAZolam (XANAX) 0.25 MG Tablet Take 0.25 mg by mouth daily as needed for Anxiety. 1 Active Cyanocobalamin (B-12 IJ) by Injection route every 30 days. Active traMADol (ULTRAM) 50 MG TabletIndicatio ns:Kidney stone Take 1-2 Tablets by mouth every 6 hours as needed for Moderate or more severe pain. 12 Tablet 2 Active naproxen (NAPROSYN) 500 MG Tablet Take 1 Tablet by mouth 2 times daily as needed for Mild or more severe pain. 20 Tablet 2 Active Additional Information Patient not taking.Reported on 03/14/2023 estradiol (ESTRACE) 0.1 MG/GM Cream 0.01 g by Vaginal route. 3 Active famotidine (PEPCID) 20 MG TabletIndicatio ns:Gastroesopha geal reflux disease without esophagitis Take 1 Tablet by mouth every evening. 180 Tablet 1 3 Active Additional Information Patient taking differently:20 mg OralNIGHTLY PRN, Reported on 11/15/2024 buPROPion SR (WELLBUTRIN SR) 150 MG TABLET SR 12 HR Take 150 mg by mouth daily. Active naproxen (NAPROSYN) 500 MG Tablet Take 1 Tablet by mouth 2 times daily as needed for Moderate or more severe pain. 20 Tablet 4 Active Additional Information Patient not taking.Reported on 07/23/2024 DULoxetine (CYMBALTA) [address] Particles TAKE 1 CAPSULE BY MOUTH EVERY DAY 90 Capsule 4 Active Additional Information Patient not taking.Reported on 07/23/2024 Phentermine HCl 37.5 MG Tablet take 1 tablet by mouth daily before breakfast Active pantoprazole (PROTONIX) 40 MG Tablet Delayed ResponseIndicat ions:Urena's esophagus without dysplasia,Gastr oesophageal reflux disease without esophagitis Take 1 Tablet by mouth daily. 90 Tablet 3 4 Active Active Problems Problem Noted Date Diagnosed Date Fibromyalgia 10/24/2023 Mass of upper outer quadrant of right breast 11/2022 Lymphedema of breast 12/29/2022 History of right breast cancer 07/05/2021 Incomplete tear of right rotator cuff 01/25/2018 Hypothyroidism Overview (08/06/2015): Ablation Migraine headache Anxiety IBS (irritable bowel syndrome) Constipation Urena's esophagus Gastroesophageal reflux Resolved Problems Problem Noted Date Diagnosed Date Resolved Date Axillary lymphadenopathy 07/05/202111/2022 Breast pain, right 07/05/2021 Encounters Date Type Department Care Team Description 11/21/2024 Telephone [facility] - Gastroenterology - [place] [address] [place] [address] Cali Hwang MD Results 11/15/2024 8:54 AM CDT Anesthesia Event [facility] Gi Lab Periop [address] [place] [address] Anjel Koenig APRN, MACHINE INSPECTOR 11/15/2024 8:30 AM CDT - 11/15/2024 9:00 AM CDT Surgery [facility] Gi Lab Periop [address] [place] [address] Claudy Fuentes MD EGD- 2nd part dudenum biopsy-pre pyloric biopsy-antral polypectomy x1 biopsy forceps-ge junction r/o EOE biopsy-esophageal biopsy @ 25cm-esophageal biopsy @ 20cm 11/15/2024 7:50 AM CDT Ancillary Procedure [facility] Gi Lab Main [address] [place] [address] Claudy Fuentes MD 11/15/2024 7:39 AM CDT - 11/15/2024 10:02 AM CDT Hospital [facility] Preop/Pacu II [address] [place] [address] Claudy Fuentes MD Urena's esophagus Discharge Disposition: Discharged to home or Selfcare 11/15/2024 Travel 11/04/2024 Travel 10/28/2024 Telephone [facility] - [place] [address] [place] [address] Danyell Goldberg APRN, RETAIL ZONE SPECIALIST 10/28/2024 Results Follow-Up [facility] Gastroenterology [facility] [address] [place] [address] Danyell Goldberg APRN, RETAIL ZONE SPECIALIST 10/24/2024 9:45 AM WOOD BUCKER - 10/24/2024 11:59 PM WOOD BUCKER Hospital Encounter [facility] Diagnostic Radiology [address] [place] [address] Danyell Goldberg APRN, RETAIL ZONE SPECIALIST Discharge Disposition: Discharged to home or Selfcare 10/24/2024 Travel 10/21/2024 Telephone [facility] - [place] [address] [place] [address] Claudy Fuentes MD 10/21/2024 Telephone [facility] - [place] [address] [place] [address] Danyell Goldberg APRN, RETAIL ZONE SPECIALIST Abdominal Pain from Last 3 Months Immunizations Immunization Administration Dates Next Due Influenza Vaccine, Quadrivalent, PF 07/08/2021,1 10/15/2019 Influenza, Recombinant, Quadrivalent,injectable, Pf 10/03/2020 Influenza, Seasonal, Injectable, Undefined 07/28 Pneumococcal Vaccine Adult - 23 Valent TDAP Vaccine 09/03/2018,10/01/2007 Family History Medical History Relation Name Comments Heart Disease Brother Irregular hear t. Heart Disease Father Cancer Maternal Grandmother breast Migraines Mother Rashes/Skin Problems Mother Thyroid Disease Mother Cancer Paternal Grandfather Colon Cancer Paternal Grandfather Autoimmune Disease Sister SLE Cancer Sister Relation Name Status Comments Brother Father Alive Maternal Grandmother Mother Alive Paternal Grandfather Sister Social History Tobacco Use Types Packs/Day Years Used Date Smoking Tobacco: Never Smokeless Tobacco: Never Tobacco Cessation:Counseling Given: Not Answered Alcohol Use Standard Drinks/Week Comments Yes 2 (1 standard drink = 0.6 oz pur e alcohol) Sexually Active Control Partners Comments Yes Male Comments No Sex and Gender Information Value Date Recorded Sex Assigned at Not on file Legal Sex Female 12:23 AM CDT Gender Identity Not on file Sexual Orientation Not on file 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 Not on file Not on fi le Not on file Last Filed Vital Signs Vital Sign Reading Time Taken Comments Blood Pressure 125/59 11/15/2024 9:47 AM CDT Pulse 64 11/15/2024 9:47 AM CDT Temperature 37 C (98.6 F) 11/15/2024 9:47 AM CDT Respiratory Rate 15 11/15/2024 9:47 AM CDT Oxygen Saturation 100% 11/15/2024 9:47 AM CDT Inhaled Oxygen Concentration - - Weight 88.5 kg (195 lb) 11/04/2024 3:00 PM CDT Height 162.6 cm (5' 4 ) 11/04/2024 3:00 PM CDT Body Mass Index 33.47 11/04/2024 3:00 PM CDT Plan of Treatment Upcoming Encounters Date Type Department Care Team (Late st Contact Info) Description 07/30/2025 2:00 PM WOOD BUCKER [facility] On[facility] Services [address] [place] [address] Héctor Casanova MD [address] [place] [address] Discharge Disposition: Discharged to home or Selfcare Health Maintenance Due Date Last Done Comments Hepatitis C Virus (HCV) Screening 1965 Hepatitis B Immunization (1 of 3 - 19+ 3-dose series) 1986 Cologuard 2017 Immunochemical Fecal Occult Blood 2017 Pneumococcal Immunization (50+ years) (2 of 2 - PCV) 02/22/2022 02/22/2021 SARS-COV-2 Immunization ( season) 2024 09/08/2023, 05/09/2021, 11/21/2020, Additional history exists Mammogram 07/22/2025 07/22/2024, 03/2024, 12/29/2023, Additional history exists Colonoscopy 03/24/2028 03/24/2023, 03/2017, 01/02/2017, Additional history exists Colorectal Cancer Screening 03/24/2028 Td Immunization Every 10 Years (Adults With 1 Tdap) 09/03/2028 09/03/2018, 10/01/2007 Respiratory Syncytial Virus (RSV) Immunization (Adult) (1 - 1-dose 75+ series) 2042 03/24/2023, 03/2017, 01/02/2017, Additional history exists DTaP/Tdap/Td Immunization Discontinued 09/03/2018, 11/2007 Pneumococcal Immunization Combined Discontinued 02/22/2021 Zoster Immunization Completed 12/01/2023, 10/09/2023, 09/08/2023 Influenza Immunization Completed , 07/18/2023, 05/16/2022, Additional history exists Meningococcal Immunization (ACWY) Aged Out No longer eligible based on patient's age to complete this topic Rotavirus Immunization Aged Out No lo nger eligible based on patient's age to complete this topic Procedures Procedure Name Priority Date/Time Associated Diagnosis Comments PATHOLOGY SURGICAL Routine 11/15/2024 9:19 AM CDT HI ESOPHAGOGASTRODUODENOSCOP Y TRANSORAL DIAGNOSTIC 11/15/2024 9:07 AM CDT EGD- 2nd part dudenum biopsy-pre pyloric biopsy-antral polypectomy x1 biopsy forceps-ge junction r/o EOE biopsy-esophage al biopsy @ 25cm-esophageal biopsy @ 20cm Special Needs DX URENA'S ESOPH. GERD NO BP OR STICKS ON RIGHT DUE TO LYMPHEDEMA, HX PARTIAL MASTECTOMY ON RIGHT ANXIETY HI EGD FLEXIBLE TRANSNASAL D X W/COLLJ SPEC BR/WA 11/15/2024 9:07 AM CDT EGD- 2nd part dudenum biopsy-pre pyloric biopsy-antral polypectomy x1 biopsy forceps-ge junction r/o EOE biopsy-esophage al biopsy @ 25cm-esophageal biopsy @ 20cm Special Needs DX URENA'S ESOPH. GERD NO BP OR STICKS ON RIGHT DUE TO LYMPHEDEMA, HX PARTIAL MASTECTOMY ON RIGHT ANXIETY GI LAB IMAGING - EGD Routine 11/15/2024 7:46 AM CDT XR ABDOMEN KUB FLAT PLATE Routine 2024 10:39 AM WOOD BUCKER Diarrhea, unspecified type SAVANAH SCREENING BILATERAL DIGITAL W CAD Routine 08/01/2015 HM COLONOSCOPY Routine 10/19/2012 from Last 3 Months or Most Recently Relevant to Health Maintenance Results * Pathology Surgical (11/15/2024 9:19 AM CDT) Case Report Surgical Pathology Report Case: [id number] Authorizing Provider: Claudy Fuentes MD Collected: 11/15/2024 09:19 AM Ordering Location: [facility] Received: 11/15/2024 12:[address] [facility] GI Lab Preop/Pacu II Pathologist: Batool Alford MD PhD Specimens: A) - Duodenum, 2nd part duodenum biopsy B) - Stomach, pre pyloric biopsy C) - Stomach, antral polyp x1 D) - GE Junction, ge junction biopsy r/o EOE E) - Esophagus, esophageal biopsy at 25cm F) - Esophagus, esophageal biopsy at 20cm 11/18/2024 9:41 AM CDT [facility] FINAL DIAGNOSIS A. Second part duodenum biopsy: - Duodenal mucosa, negative for diagnostic abnormalities B. Pre pyloric biopsy: - Gastric mucosa with focal mild chronic inflammation - Negative for acute inflammation or H. pylori by H&E stain C. Antral polyp, polypectomy: - Fundic gland polyp D. GE junction, rule out eosinophilic esophagitis, biopsy: - Gastroesophageal junctional mucosa with mild chronic inflammation - 5 intraepithelial eosinophils per high power field - Negative for intestinal metaplasia, dysplasia, or malignancy E. Esophagus at 25 cm, biopsy: - Chronic esophagitis with 5 intraepithelial eosinophils per high power field F. Esophagus at 20 cm, biopsy: - Chronic esophagitis with 30 intraepithelial eosinophils per high power field 11/18/2024 9:41 AM CDT [facility] at 0941 CDT Pre-Operative Diagnosis URENA'S ESOPHAGUS 11/18/2024 9:41 AM CDT [facility] Gross Description A. 2nd part duodenum biopsy The specimen presents in six formalin containers for gross and microscopic examination labeled with the patient's name, Bianca Lentz Part A is designated as second part duodenum biopsy. The specimen consists of a single light bacon tissue measuring 0.2 cm in greatest dimension. All submitted cassette A1. B. pre pyloric biopsy Part B is designated as pre pyloric biopsy. The specimen consists of a single light bacon tissue measuring 0.3 cm in greatest dimension. All submitted cassette B1. C. antral polyp x1 Part C is designated as antral polyp. The specimen consists of a single light bacon tissue measuring 0.2 cm in greatest dimension. All submitted cassette C1. D. ge junction biopsy r/o EOE Part D is designated as GE junction biopsy, rule out eosinophilic esophagitis. The specimen consists of two pieces of light bacon tissue. They are a fraction of a millimeter each in greatest dimension. It is questionable whether or not these two pieces will survive processing. Submitted in cassette D1. E. esophageal biopsy at 25cm Part E is designated as esophageal biopsy 25 cm. The specimen consists of a single light bacon tissue measuring 0.2 cm in greatest dimension. All submitted cassette E1. F. esophageal biopsy at 20cm Part F is designated esophageal biopsy 20 cm. The specimen consists of two pieces of light bacon tissue measuring a fraction of a millimeter up to 0.4 cm in greatest dimension. It is questionable whether or not they will all survive processing. All submitted in cassette F1. KS/sb 11/18/2024 9:41 AM CDT [facility] Microscopic Description Microscopic examination was performed which supports the final diagnosis. All control tissues stained appropriately. 11/18/2024 9:41 AM CDT [facility] Tissue DUODENAL STRUCTURE / Unknown 11/15/2024 9:19 AM CDT 11/15/2024 12:43 PM CDT Tissue specimen (specimen) STOMACH STRUCTURE / Unknown 11/15/2024 9:19 AM CDT 11/15/2024 12:43 PM CDT Tissue specimen (specimen) STOMACH STRUCTURE / Unknown 11/15/2024 9:20 AM CDT 11/15/2024 12:43 PM CDT Tissue specimen (specimen) CARDIOESOPHAGEAL JUNCTION STRUCTURE / Unknown 11/15/2024 9:20 AM CDT 11/15/2024 12:43 PM CDT Tissue specimen (specimen) ESOPHAGEAL STRUCTURE / Unknown 11/15/2024 9:20 AM CDT 11/15/2024 12:43 PM CDT Tissue specimen (specimen) ESOPHAGEAL STRUCTURE / Unknown 11/15/2024 9:20 AM CDT 11/15/2024 12:43 PM CDT us Claudy Fuentes MD PATHOLOGY/CYTOLOGY ORDERAB LES Final Result [facility] [address] [place] [address] * GI LAB IMAGING - EGD (11/15/2024 7:46 AM CDT) Claudy Fuentes MD IMG DIAGNOSTIC ORDERABLES Final Result * XR ABDOMEN KUB FLAT PLATE (10/24/2024 10:39 AM WOOD BUCKER) Anatomical Region Laterality Modality Abdomen N/A Digital Radiogra phy 10/27/2024 1:57 PM WOOD BUCKER Impressions 10/27/2024 2:00 PM WOOD BUCKER IMPRESSION: 1. Potential left nephrolithiasis. 2. Nonobstructive bowel gas pattern. Narrative 10/27/2024 2:00 PM WOOD BUCKER EXAM DESCRIPTION: XR ABDOMEN KUB FLAT PLATE REASON FOR STUDY: diarrhea x 2 weeks. denies nausea/vomiting, urinary symptoms. Pt states chronic constipation x 30 years. Hx of IBS, breast cancer, hysterectomy TECHNIQUE: AP supine radiographic view of the abdomen. COMPARISON: CT abdomen and pelvis dated 12/09/2021 FINDINGS: BOWEL: Bowel-gas pattern is nonspecific/non obstructive. SOFT TISSUES: Punctate calcifications project in the left hemiabdomen and may represent nonobstructing renal calculi. No definite calcification overlies the expected position of either ureter. LINES/TUBES: None. BONES: Mild degenerative changes. No acute osseous abnormality. THIS IS AN ELECTRONICALLY VERIFIED FINAL REPORT 10/27/2024 1:57 PM - Electronically signed by Shawnee Campbell M.D. TW: TW Report ID: [id number] Reading Location: [id number] Procedure Note Shawnee Campbell MD - 10/27/2024 EXAM DESCRIPTION: XR ABDOMEN KUB FLAT PLATE REASON FOR STUDY: diarrhea x 2 weeks. denies nausea/vomiting, urinary symptoms. Pt states chronic constipation x 30 years. Hx of IBS, breast cancer, hysterectomy TECHNIQUE: AP supine radiographic view of the abdomen. COMPARISON: CT abdomen and pelvis dated 12/09/2021 FINDINGS: BOWEL: Bowel-gas pattern is nonspecific/non obstructive. SOFT TISSUES: Punctate calcifications project in the left hemiabdomen and may represent nonobstructing renal calculi. No definite calcification overlies the expected position of either ureter. LINES/TUBES: None. BONES: Mild degenerative changes. No acute osseous abnormality. THIS IS AN ELECTRONICALLY VERIFIED FINAL REPORT 10/27/2024 1:57 PM - Electronically signed by Shawnee Campbell M.D. TW: TW Report ID: [id number] Reading Location: [id number] IMPRESSION: 1. Potential left nephrolithiasis. 2. Nonobstructive bowel gas pattern. Danyell Goldberg OCCUPATIONAL HEALTH NURSING DIRECTOR, RETAIL ZONE SPECIALIST IMG DIAGNOSTIC OR DERABLES Final Result * SAVANAH SCREENING BILATERAL DIGITAL W CAD (08/01/2015) Anatomical Region Laterality Modality breast Bilateral Other Jaye Perdomo MD IMG MAMMO ORDERABLES Edited Result - Final * COLONOSCOPY (10/19/2012) Jaye Perdomo MD PROCEDURE/MINOR SURGICAL OR DERABLES Final Result from Last 3 Months or Most Recently Relevant to Health Maintenance Insurance [facility] Care Teams Internal Audit Director Relationship Specialty Start Date End Date Maximiliano Bullard MD [address] [place] [address] PCP - General 04/21/16 Danyell Goldberg APRN, RETAIL ZONE SPECIALIST [address] [place] [address] Nurse Practitioner Advanced Practice Nurse 12/05/22
--- OUTSIDE RECORDS SUMMARY | 2024-11-22 09:25 | XMS_ITS | Encounter Summary ---
Author Organization [facility] Address [address] [place] [address] Care Team Providers Care Management Assistant Name Role Phone Maximiliano Bullard MD Primary Care Provider [phone] Reason for Visit * Reason Comments Provider Call Provider Call Provider Call Encounter Details Date Type Department Care Team ([facility] Contact Info) Description 09/20/2024 Telephone [facility] Primary Care [address] [place] [address] Maximiliano Bullard MD [address] [place] [address] [address] [place] [address] Provider Call; Provider Call; Provider Call Social History Tobacco Use Types Packs/Day Years Used Date Smoking Tobacco: Never Passive Smoke Exposure: Never Smokeless Tobacco: Never Alcohol Use Standard Drinks/Week Comments Yes 5 (1 standard drink = 0.6 oz pur e alcohol) Comments No Sex and Gender Information Value Date Recorded Sex Assigned at Not on file Legal Sex Female 3:31 AM HIM CLERK Gender Identity Not on file Sexual Orientation Not on file documented as of this encounter Miscellaneous Notes * Telephone Encounter - Elder Evans - 09/25/2024 10:45 AM HIM CLERK Copied from [facility] #[id number]. Topic: [id number] Call >> Sep 25, 2024 10:43 AM Elder Hall wrote: Caller is requesting to speak with Clinical Care Team. [facility] Callback Number: [phone] EXT [phone] Clinician Type: Other healthcare professional not listed above Call Notes: Neris states CT Calcium is scheduled for tomorrow and PA is still pending with insurance. Please advise patient Is this addressing an immediate patient care need? No CLERK * Telephone Encounter - Patricia Phillips - 09/23/2024 9:15 AM CST Copied from [facility] #[id number]. Topic: [id number] Call >> Sep 23, 2024 9:11 AM Patricia Faustin wrote: Caller is requesting to speak with Clinical Care Team. Caller Name: Jessica Callback Number: [phone] ext [phone] Clinician Type: Other healthcare professional not listed above Call Notes: Jessica with [facility] Pre-Arrival calling in to check on the pre authorization for patient to have a CT coronary calcium score. Advised Jessica, that I did not see any updates on patient's chart, please advise. Scheduled for 09/26/24 Fax, [phone] Is this addressing an immediate patient care need? No CLERK * Telephone Encounter - Tung Mejia - 09/20/2024 12:10 PM CST Copied from [facility] #[id number]. Topic: [id number] Call >> Sep 20, 2024 12:06 PM Tung Arnold wrote: Caller is requesting to speak with Clinical Care Team. Caller Name: Jenn [facility] prearrival. Callback Number: [phone] Clinician Type: Other healthcare professional not listed above Call Notes: Received an order from Dr. Bullard for CT CORONARY CALCIUM SCORE scoring- needing clinials in order to inital PA for her insurance Please fax to : [phone] Please advise. Is this addressing an immediate patient care need? No CLERK documented in this encounter Plan of Treatment Upcoming Encounters Date Type Department Care Team (Late st Contact Info) Description 04/16/2025 3:00 PM CDT Office Visit [facility] Primary Care [address] [place] [address] Maximiliano Bullard MD [address] [place] [address] [address] [place] [address] documented as of this encounter Visit Diagnoses Not on filedocumented in this encounter Care Teams Management Assistant Relationship Specialty Start Date End Date Maximiliano Bullard MD PCP - General Internal Medicine 03/07/16 documented as of this encounter
--- OUTSIDE RECORDS SUMMARY | 2024-11-22 09:25 | XMS_ITS | Encounter Summary ---
Author Organization [facility] Address [address] 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 Yes 09/03/2020 4:01 PM FENCE RIDER documented as of this encounter Miscellaneous Notes * Telephone Encounter - Anuj Shepherd CMA - 09/16/2020 8:50 AM FENCE RIDER Pharmacy requesting refill of: Requested Prescriptions Pending Prescriptions Disp Refills ??? Linzess 290 MCG Capsule [Pharmacy Med Name: LINZESS 290 MCG CAPSULE] 30 Cap 0 Sig: TAKE 1 CAP BY MOUTH EVERY MORNING BEFORE BREAKFAST Last fill: 08/17/2020 Patients last OV with GI: 05/14/2020 Next Office Visit with GI: None scheduled E RIDER documented in this encounter Plan of Treatment Upcoming Encounters Date Type Department Care Team (Late st Contact Info) Description 07/30/2025 2:00 PM FENCE RIDER Office Visit [facility] - Cancer Center Oncology Services [address] [place] [address] Héctor Casanova MD [address] [place] [address] Discharge Disposition: Discharged to home or Selfcare documented as of this encounter Visit Diagnoses Not on filedocumented in this encounter Care Teams Trackwalker Relationship Specialty Start Date End Date Maximiliano Bullard MD [address] [place] [address] PCP - General 04/21/16 Danyell Goldberg APRN, VENEER SLICING MACHINE OPERATOR [address] [place] [address] Nurse Practitioner Advanced Practice Nurse 12/05/22 documented as of this encounter
--- OUTSIDE RECORDS SUMMARY | 2024-11-22 09:25 | XMS_ITS | Encounter Summary ---
Author Organization [facility] Address [address] 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 No / Unsure 07/05/2021 8:13 AM POWER GENERATION TURBINE ROOM OPERATOR documented as of this encounter Miscellaneous Notes * Telephone Encounter - Mackenzie Arroyo RN - 08/05/2021 9:15 AM POWER GENERATION TURBINE ROOM OPERATOR Medication refilled and signed [facility] medication standing order for pediatric and adult patients. R GENERATION TURBINE ROOM OPERATOR * Telephone Encounter - Mackenzie Arroyo RN - 08/05/2021 9:02 AM POWER GENERATION TURBINE ROOM OPERATOR Pharmacy requesting refill of: Requested Prescriptions Pending Prescriptions Disp Refills ??? pantoprazole (PROTONIX) 40 MG Tablet Delayed Response [Pharmacy Med Name: PANTOPRAZOLE SOD DR 40 MG TAB] 90 Tablet 1 Sig: TAKE 1 TABLET BY MOUTH EVERY DAY Last fill: 10/05/2020 for 90 tablets and 1 refill. Patients last OV with GI: 05/04/2020 Next Office Visit with GI: None scheduled. Called patient, offered an appt, patient has breast cancer and asking for an appt for next year. Patient is needing a later appt. New patient appt scheduled for 09/09/[address] Nicholson. R GENERATION TURBINE ROOM OPERATOR R GENERATION TURBINE ROOM OPERATOR documented in this encounter Plan of Treatment Upcoming Encounters Date Type Department Care Team (Late st Contact Info) Description 07/30/2025 2:00 PM POWER GENERATION TURBINE ROOM OPERATOR Office Visit [facility] [address] [place] [address] Héctor Casanova MD [address] [place] [address] Discharge Disposition: Discharged to home or Selfcare documented as of this encounter Visit Diagnoses Diagnosis Gastroesophageal reflux disease Esophageal reflux documented in this encounter Care Teams Religious Studies Professor Relationship Specialty Start Date End Date Maximiliano Bullard MD [address] [place] [phone] PCP - General 04/21/16 Danyell Goldberg APRN, TENNIS CAMP INSTRUCTOR [address] [place] [address] Nurse Practitioner Advanced Practice Nurse 12/05/22 documented as of this encounter
--- OUTSIDE RECORDS SUMMARY | 2024-11-22 09:25 | XMS_ITS | Encounter Summary ---
Author Organization [facility] Address [address] [place] [address] Care Team Providers Care Washing Machine Loader Name Role Phone Maximiliano Farrell MD Primary Care Provider [phone] Reason for Visit * Reason Onset Date Comments Gland Swelling 03/16/2022 Encounter Details Date Type Department Care Team (Late st Contact Info) Description 03/16/2022 Telephone [facility] [address] [place] [address] Maximiliano Farrell MD [address] [place] [address] [address] [place] [address] Gland Swelling Social History Tobacco Use Types Packs/Day Years Used Date Smoking Tobacco: Never Smokeless Tobacco: Never Alcohol Use Standard Drinks/Week Comments Yes 5 (1 standard drink = 0.6 oz pur e alcohol) Comments No Sex and Gender Information Value Date Recorded Sex Assigned at Not on file Legal Sex Female 3:31 AM RE EXAMINER Gender Identity Not on file Sexual Orientation Not on file COVID-19 Exposure Response Date Recorded In the last 10 days, have yo u been in contact with someone who was confirmed or suspected to have Coronavirus/COVID-19? No / Unsure 03/16/2022 10:46 AM CDT documented as of this encounter Miscellaneous Notes * Telephone Encounter - Alessandra Sawyer - 03/16/2022 10:49 AM CDT Name of PCP Provider or Prescribing Provider: Maximiliano Farrell MD Next office visit: 05/16/2022 Caller: Bianca Recio Message: Patient is requesting a call back from Dr. farrell . She has an issue with her thyroid gland. She was able to schedule an appointment with KIKE Gonsales . But she was hoping to get in sooner Call back Number: [phone] (home) documented in this encounter Plan of Treatment Upcoming Encounters Date Type Department Care Team (Late st Contact Info) Description 04/16/2025 3:00 PM CDT Office Visit [facility] [address] [place] [address] Maximiliano Farrell MD [address] [place] [phone] documented as of this encounter Visit Diagnoses Not on filedocumented in this encounter Care Teams Washing Machine Loader Relationship Specialty Start Date End Date Maximiliano Farrell MD PCP - General Internal Medicine 03/07/16 documented as of this encounter
--- OUTSIDE RECORDS SUMMARY | 2024-11-22 09:25 | XMS_ITS | Clinical Summary ---
Author Organization [facility] Address [address] [place] [address] Care Team Providers Care Compress Machine Operator Name Role Phone Maximiliano Bullard MD Primary Care Provider [phone] Allergies Active Allergy Reactions Criticality Noted Date Comments Aurora Rash Medium 03/07/2016 Ciprofloxacin Anaphylaxis,Other (See Comments) High 04/26/2016 Swallowing problems.Throat closing up. Other reaction(s): Other (See comments) Other reaction(s): Other (See Comments) Coconut Rash Medium 03/07/2016 Coconut Oil Rash Medium 03/07/2016 Doxycycline Rash Low 03/29/2022 Loratadine Angioedema,Anaphylax i s High 12/22/2016 Penicillins Anaphylaxis,Rash,Oth e r (See Comments) High 03/07/2016 Patient states Raised rash only/ moderate immediate reaction, pcn allergy form filled out Sulfa (Sulfonamide Antibiotics) Anaphylaxis,Unknown,O ther (See Comments) High 12/14/2020 Other reaction(s): Unknown Sulfamethoxazole-Trimet hoprim Rash,Anaphylaxis High 04/23/2016 Sumatriptan Other (See Comments) Reaction: L ARM NUMB, Tirzepatide Nausea and Vomiting Low 11/23/2022 Tree Nut Other (See Comments) Low 12/14/2020 Itchy throat Itchy throat Other reaction(s): Other (See Comments) Itchy throat Unclassified Drug Anaphylaxis High 01/23/2018 [place] Other (See Comments) High 01/23/2018 Itchy throat Other reaction(s): Other (See comments) Itchy throat Other reaction(s): Other (See Comments) Itchy throat Wheat Constipation Low 10/03/2018 Other reaction(s): Other (See comments) Itchy throat Other reaction(s): Other (See comments) Itchy throat Other reaction(s): Constipation Other reaction(s): Other (See comments) Itchy throat Medications cholecalciferol, vitamin D3, (D3-50 CHOLECALCIFEROL ORAL) Take 1 Capsule by mouth. Active estradiol 0.075 mg/24 hr patch APPLY 1 PATCH TWICE A WEEK 6 02/13/20 19 Active pantoprazole (PROTONIX) 40 mg Tablet, Delayed Release (E.C.) pantoprazole 40 mg tablet,delayed release Active EPINEPHrine (EPIPEN) 0.3 mg/0.3 mL Auto-Injector Inject by intramuscular injection. Active famotidine (PEPCID) 20 mg tablet Take 1 Tablet by mouth. 05/15/20 20 Active ALPRAZolam (XANAX) 0.25 mg tabletIndications:O ther specified anxiety disorders Take 1 Tablet (0.25 mg) by mouth 2 times daily as needed for Anxiety. 30 Tablet 2 03/05/20 21 Active clobetasoL (TEMOVATE) 0.05 % CreamIndications:De rmatitis Apply to affected area 2 times daily. 60 Gram 06/24/20 21 Active levothyroxine (SYNTHROID) 150 mcg tabletIndications:E levated TSH Take 1 Tablet (150 mcg) by mouth daily in the morning. 90 Tablet 3 03/21/20 22 Active DULoxetine (CYMBALTA) 30 mg Capsule, Delayed Release(E.C.) Take 30 mg by mouth daily. 10/30/19 24 Active cyclobenzaprine (FLEXERIL) 10 mg tablet TAKE ONE TABLET BY MOUTH THREE TIMES A DAY NEEDED FOR SPASMS Active traMADoL (ULTRAM) 50 mg tablet TAKE 1-2 TABLETS BY MOUTH EVERY 6 HOURS NEEDED FOR MODERATE OR MORE SEVERE PAIN. Active Syringe with Needle, Disp, (BD Luer-Hermilo Syringe) 3 mL 25 x 1 1/2 Syringe USE TO INJECT B12 ONCE MONTHLY 10 Each 3 02/02/20 24 Active buPROPion HCL (Wellbutrin XL) 150 mg Extended Release 24 hour tablet Take 1 Tablet (150 mg) by mouth daily in the morning. 90 Tablet 3 03/21/20 24 Active phentermine (ADIPEX P) 37.5 mg tabletIndications:O besity (BMI 30.0-34.9) Take 1 Tablet (37.5 mg) by mouth daily before breakfast. 30 Tablet 3 03/22/20 24 Active cyanocobalamin (VITAMIN B-12) 1,000 mcg/mL SolutionIndications :Vitamin B12 deficiency (non anemic) INJECT 1 ML (1,000 MCG) BY INTRAMUSCULAR INJECTION EVERY 30 DAYS. 3 mL 9 06/24/20 24 Active linaCLOtide (Linzess) 290 mcg capsuleIndications: Irritable bowel syndrome with constipation Take 1 Capsule (290 mcg) by mouth daily before breakfast. 90 Capsule 3 09/25/19 25 Active Active Problems Patient Care Coordination No te Formatting of this note migh t be different from the original. Primary Care: Maximiliano Bullard MD Referring Provider: No referring provider defined for this encounter. Other: Dr. Rhoda Estes MD Prev 10/04/23 GI- Dr. Mccoy Head/neck- Dr. 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/2024 History of breast cancer 11/14/2022 Lymphedema of breast 09/01/2022 History of right breast cancer 10/30/2020 Vitamin B12 deficiency (non anemic) 01/24/2019 Gallbladder polyp 01/24/2019 Overview (01/24/2019): 06/14- stable 4mm, symptomatic referred to gen surg 01/13 Cervical lymphadenopathy 12/13/2018 Overview (12/13/2018): 12/14 US Gastroesophageal reflux disease without esophagi tis 11/21/2018 Chronic constipation 11/21/2018 Wheat allergy 10/03/2018 Overview (10/17/2018): Celiac ab negative 10/16 Obesity (BMI 30.0-34.9) 10/03/2018 Menopause 03/07/2016 Fibromyalgia 03/07/2016 Vitamin D deficiency 03/07/2016 Abnormal LFTs (liver function tests) 03/07/2016 Hypothyroidism 03/07/2016 Encounters Date Type Department Care Team Description 11/13/2024 External Device Data ST[facility] ABSTRACTION Provider, Abstract 11/05/2024 External Device Data [facility] ABSTRACTION Provider, Abstract 11/05/2024 External Device Data [facility] ABSTRACTION Provider, Abstract 11/02/2024 External Device Data [facility]STRACTION Provider, Abstract 11/01/2024 External Device Data [facility]CTION Provider, Abstract 10/29/2024 External Device Data [facility]STRACTION Provider, Abstract 10/15/2024 External Device Data [facility]STRACTION Provider, Abstract 10/04/2024 Orders Only [address] [place] [phone] Provider, Abstract 10/04/[address] [place] [phone] Maximiliano Bullard MD 09/25/2024 Orders Only [facility] Internal Medicine [address] [address] Evette Diaz, FIREWORKS DISPLAY SPECIALIST Irritable bowel syndrome with constipation (Primary Dx) 09/20/[address], [place] [phone] Maximiliano Bullard MD Provider Call; Provider Call; Provider Call 09/18/2024 External Device Data STL ABSTRACTION Provider, Abstract 09/17/2024 External Device Data [facility] ABSTRACTION Provider, Abstract 09/16/2024 3:20 PM HIGH RISK OB Office Visit [address], [place] [phone] Maximiliano Bullard MD Vitamin B12 deficiency (non anemic) (Primary Dx); Vitamin D deficiency; Encounter for routine adult health examination with abnormal findings; Other specified hypothyroidism; Abnormal glucose; Need for Streptococcus pneumoniae and influenza vaccination; History of breast cancer; Obesity (BMI 30.0-34.9) 09/03/2024 External Device Data ST[facility] ABSTRACTION Provider, Abstract from Last 3 Months Immunizations Immunization Administration Dates Next Due (ADACEL/BOOSTRIX)(10 YR UP) TDAP VACCINE, 0.5ML, IM 09/03/2018,10/01/2007 (PFIZER)(12 YR UP) COVID-19 VACCINE - EMERGENCY USE AUTHORIZATION, MRNA, [id number](PF) 30 MCG/0.3 ML IM SUSP 09/08/2023,05/09/2021,11/21/2020,10/26 (PNEUMOVAX 23)(50 YRS UP) PN EUMOCOCCAL POLYSACCHARIDE (PPV23) 0.5 ML, IM 02/22/2021 (SHINGRIX)(50 YRS UP) ZOSTER VACCINE RECOMBINANT, 0.5 ML, IM 10/09/2023,09/08/2023 INFLUENZA VACCINE QUADRIVALE NT 6 MOS UP PF IM 07/18/2023,05/16/2022,07/08/2021,08/14 INFLUENZA VACCINE QUADRIVALE NT RECOMB 18 YR UP PF IM 10/03/2020 INFLUENZA VACCINE TRIVALENT SPLIT VIRUS, (6 MOS UP), 0.5ML (PF), IM 09/16/2024 Influenza A (H1N1) Vaccine IM 07/28/2020 Influenza Seasonal Unspecifi ed Formulation IM 07/28/2020 Family History Medical History Relation Name Comments Asthma Brother 5 Douglas Amador had it since h e was 8 or 7 in his 50's now GERD Brother 5 Douglas Marjorie GERD Brother 6 GERD Brother 7 GERD Brother 8 GERD Father Breast Cancer Maternal Grandmother Zhane Lucero both b reast removed Diabetes Maternal Grandmother Zhane Lucero GERD Mother Toya Amador Other Mother Toya Titus Amador nav dise ase Thyroid Disease Mother Toya Amador Thyroid Disease Sister 2 Gerda GERD Sister 3 SLE Sister 4 Relation Name Status Comments Brother 1 Alive Brother 2 Alive Brother 3 Alive Brother 4 Alive Brother 5 Douglas Amador Brother 6 Brother 7 Brother 8 Daughter Alive Father Alive Maternal Grandfather Maternal Grandmother Zhane Lucero Mother Toya Amador Alive Paternal Grandfather Paternal Grandmother Sister 1 Alive Sister 2 Gerda Sister 3 Sister 4 Son Social History Tobacco Use Types Packs/Day Years Used Date Smoking Tobacco: Never Passive Smoke Exposure: Never Smokeless Tobacco: Never Tobacco Cessation:Counseling Given: No Alcohol Use Standard Drinks/Week Comments Yes 5 (1 standard drink = 0.6 oz pur e alcohol) Comments No Sex and Gender Information Value Date Recorded Sex Assigned at Not on file Legal Sex Female 3:31 AM HIGH RISK OB Gender Identity Not on file Sexual Orientation Not on file Last Filed Vital Signs Vital Sign Reading Time Taken Comments Blood Pressure 108/72 09/16/2024 3:02 PM HIGH RISK OB Pulse 86 09/16/2024 3:02 PM HIGH RISK OB Temperature 36.2 C (97.1 F) 10/04/2023 11:44 AM HIGH RISK OB Respiratory Rate 16 10/04/2023 11:44 AM HIGH RISK OB Oxygen Saturation 97% 09/16/2024 3:02 PM HIGH RISK OB Inhaled Oxygen Concentration - - Weight 90.4 kg (199 lb 3.2 oz) 09/16/2024 3:02 P M HIGH RISK OB Height 162.6 cm (5' 4 ) 09/16/2024 3:02 PM HIGH RISK OB Body Mass Index 34.19 09/16/2024 3:02 PM HIGH RISK OB Plan of Treatment Upcoming Encounters Date Type Department Care Team (Late st Contact Info) Description 04/16/2025 3:00 PM CDT Office Visit [facility] Care [address] [place] [address] Maximiliano Bullard MD [address] [place] [address] [address] [phone] Health Maintenance Due Date Last Done Comments HEPATITIS B VACCINES (1 of 3 - 19+ 3-dose series) 1986 FIT-DNA Q 3 years 2012 FIT/FOBT Q 1 year 2012 Flex Sig/CT Colonography Q 5 years 2012 COVID-19 Vaccine (2023-2 5 season) 2024 09/08/2023, 05/09/2021, 11/21/2020, Additional history exists BREAST CANCER SCREENING 07/22/2025 07/22/20 24, 12/29/2023, 12/29/2023, Additional history exists COLORECTAL SCREENING 01/02/2027 01/02/2017, 10/19/19 13 Colorectal Cancer Screening 01/02/2027 Pre-Diabetes and Diabetes Screening 04/15/2027 04/15/2024, 07/08/2023, 10/03/2022, Additional history exists DTAP/TDAP/TD VACCINES (3 - T d or Tdap) 09/03/2028 09/03/2018, 10/01/2007 ZOSTER VACCINE Completed 10/09/2023, 09/08/2023 INFLUENZA VACCINE Completed 09/16/2024, , 05/16/2022, Additional history exists Preventative Visit- Commercial Completed 0 09/16/2024, 03/15/2024, 12/01/2022, Additional history exists Procedures Procedure Name Priority Date/Time Associated Diagnosis Comments CT CORONARY CALCIUM SCORE Routine 09/26/2024 4:24 PM HIGH RISK OB HEMOGLOBIN A1C Routine 04/15/2024 7:11 AM CDT Prediabetes MAMMO 3D SUYZ DIAGNOSTIC BILAT W OR WO CAD Routine 12/29/2023 9:37 AM CDT ENDOSCOPY, COLON, SCREENING Routine 01/02/2017 from Last 3 Months or Most Recently Relevant to Health Maintenance Results * CT CORONARY CALCIUM SCORE (09/26/2024 4:24 PM HIGH RISK OB) us Abstract Provider CT ORDERABLES Edited Result - Final [facility] CLIA# [id number] [address] [address] * HEMOGLOBIN A1C (04/15/2024 7:11 AM CDT) HEMOGLOBIN A1C 5.6 <5.7 % of total Hgb [facility] Comment: For the purpose of screening for the presence of diabetes: <5.7% Consistent with the absence of diabetes 5.7-6.4% Consistent with increased risk for diabetes (prediabetes) > or =6.5% Consistent with diabetes This assay result is consistent with a decreased risk of diabetes. Currently, no consensus exists regarding use of hemoglobin A1c for diagnosis of diabetes in children. According to [place] Diabetes Association (ADA) guidelines, hemoglobin A1c <7.0% represents optimal control in non- diabetic patients. Different metrics may apply to specific patient populations. Standards of Medical Care in Diabetes(ADA). ESTIMATED AVERAGE GLUCOSE (MG/DL) 114 mg/dL [facility] ESTIMATED AVERAGE GLUCOSE (MMOL/L) 6.3 mmol/L [facility] Comment: This test was performed on the Petr bailey c503 platform. Effective 11/13/23, a change in test platforms from the Vang Manager Play to the Petr bailey c503 may have shifted HbA1c results compared to historical results. Based on laboratory validation testing conducted at [facility], the Petr platform relative to the Vang platform had an average increase in HbA1c value of < or = 0.3%. This difference is within accepted variability established by the National Glycohemoglobin Standardization Program. Note that not all individuals will have had a shift in their results and direct comparisons between historical and current results for testing conducted on different platforms is not recommended. FASTING:YES FASTING: YES Test Performed at: [place] [address] [place] [address] Letty Collins Blood 04/15/2024 7:11 AM CDT 04/15/2024 7:11 AM CDT us Maximiliano Bullard MD CHEMISTRY ORDERABLES Final Re sult [facility] [phone] [place] [address] [place] [address] * MAMMO 3D SUZY DIAGNOSTIC BILAT W OR WO CAD (12/29/2023 9:37 AM CDT) Anatomical Region Laterality Modality Breast Bilateral Mammography us Abstract Provider MAMMO ORDERABLES Edited Result - Final * ENDOSCOPY, COLON, SCREENING (01/02/2017) us Abstract Provider GI PROCEDURE ORDERABLES Edited Result - Final [facility] from Last 3 Months or Most Recently Relevant to Health Maintenance Insurance BCBS BLUE ACCESS/TRUE BLUE PPO [address] RX [facility] Commercial RX [facility] Care Teams Compress Machine Operator Relationship Specialty Start Date End Date Maximiliano Bullard MD PCP - General Internal Medicine 03/07/16
--- OUTSIDE RECORDS SUMMARY | 2024-11-22 09:25 | XMS_ITS | Encounter Summary ---
Author Organization [facility] Healthcare Address [address] [place] [address] Care Team Providers Care Grounds Manager Name Role Phone Maximiliano Bullard MD Primary Care Provider + Jace Hernandez MD PhD Unavailable [phone] Diya Croft MD PhD Unavaila ble Jaxson Baig MD Unavailable [phone] Reason for Visit * Reason Onset Date Comments Scheduling Appointments 06/17/2021 confirmi ng mammogram appt Encounter Details Date Type Department Care Team (Late st Contact Info) Description 06/17/2021 [facility] [address] [place] [id number] [address] Scheduling Appointments ( confirming mammogram appt) Social History Tobacco Use Types Packs/Day Years Used Date Smoking Tobacco: Never Smokeless Tobacco: Never Alcohol Use Standard Drinks/Week Comments Yes 0 (1 standard drink = 0.6 oz pur e alcohol) Comments No Sex and Gender Information Value Date Recorded Sex Assigned at Not on file Legal Sex Female 2:37 PM LIBRARY MONITOR Gender Identity Female 10/24/2022 6:31 AM LIBRARY MONITOR Sexual Orientation Straight 01/21/2021 6: 44 AM CDT documented as of this encounter Plan of Treatment Not on file documented as of this encounter Visit Diagnoses Not on filedocumented in this encounter Additional Health Concerns Infection Onset Date Last Indicated Resolved Time COVID: Suspected 09/10/2021 09/10/2021 09/10/2021 1:32 PM LIBRARY MONITOR COVID: Suspected 09/10/2021 09/10/2021 09/11/2021 11:37 AM LIBRARY MONITOR documented as of this encounter Care Teams Grounds Manager Relationship Specialty Start Date End Date Maximiliano Bullard MD PCP - General 05/04/18 Jace Hernandez MD PhD [address] [place] [address] Radiation Oncologist Radiation Oncology 01/18/21 Diya Croft MD PhD [address] [place] [address] Referring Physician Surgical Oncology 01/18/21 Jaxson Baig MD [address] [place] [address] Consulting Physician Medical Oncology 03/26/21 documented as of this encounter
--- OUTSIDE RECORDS SUMMARY | 2024-11-22 09:25 | XMS_ITS | Data Portability ---
Author Organization [facility] Address [address] [place] [address] Assessment No assessment recorded. Plan of Treatment Reminders Order Date Submit Date Provider Last Modified By Organization Details Last Modified Time Details Appointments None recorde d. Lab bacteri al vaginos is + vaginit is panel, vaginal 2020 [facility], [address] [place] [address], [facility] [address], [place], [address], 1 07:08:13 pap, IG + HPV 2020 021 [facility], [address] [place] [address], [address], [place], [address], 1 16:11:21 Referral None recorde d. Procedures None recorde d. Surgeries None recorde d. Imaging US, pelvis, transab dominal + transva ginal 2020 021 [facility] Scheduling, [address] [place] [place], [address], 1 08:46:04 Medication Orders estradi ol 0.075 mg/24 hr semiwee kly transde rmal patch 2023 024 [facility][id number], [address] [place], [address], 4 09:53:52 flucona zole 150 mg tablet 2023 024 [facility] #[id number], [address] [place], [address], 4 09:53:52 Premari n 0.625 mg/gram vaginal cream 2022 023 [facility] #[id number], [address] [place], [address], 3 14:37:50 estradi ol 0.075 mg/24 hr semiwee kly transde rmal patch 2019 [id number] [address] [place], [address], 3 16:13:10 venlafa xine ER 75 mg capsule ,extend ed release 24 hr 2018 019 [email or web address] [facility] #[id number], [address] [place], [address], 3 15:53:51 estradi ol 0.075 mg/24 hr semiwee kly transde rmal patch 2018 019 [id number] [address] [place], [address], 3 16:13:10 Patient TargetsNo targets recorded. Patient Instructions Encounter Date Encounter Id Patient Instructions Last Modified By Organization Details Last Modified Time 02/12/2019 [id number] hot flashes during menopause: care instructions deldredsmith Not available 02/12/2019 15:27:35 03/04/2021 [id number] candidiasis: care instructions deldredsmith Not available 03/04/2021 11:05:22 12/01/2022 [id number] A healthy lifestyle: care instructions deldredsmith Not available 12/01/2022 16:13:02 03/15/2024 [id number] vaginal yeast infection: care instructions deldredsmith Not available 03/15/2024 09:53:50 Reason for Referral None Reported. Results Created Date Observation Date Name Description Value Unit Range Abnormal Flag Note LastModifiedBy Organization Detail LastModifiedTime 03/04/20 21 03/06/2021 NUSWA B VAGIN ITIS PLUS (VG+) trich vag by CHANDAN Negati ve negati ve Not Available [facility] ([facility]) [address] [facility], [place], [address], 03/07/2021 07:08:13 03/04/20 21 03/06/2021 NUSWA B VAGIN ITIS PLUS (VG+) chlamydia trachomatis, CHANDAN Negati ve negati ve Not Available [facility] ([facility]) [address] [place], [address], 03/07/2021 07:08:13 03/04/20 21 03/06/2021 NUA B VAGIN ITIS PLUS (VG+) neisseria gonorrhoeae, CHANDAN Negati ve negati ve Not Available [facility] ([facility]) [address] [facility], [place], [address], 03/07/2021 07:08:13 03/04/20 21 03/07/2021 NUA B VAGIN ITIS PLUS (VG+) atopobium vaginae High - 2 score abnormal Not Available [facility] ([facility]) [address] [facility], [place], [address], 03/07/2021 07:08:13 03/04/2003/07/2021 NUA B VAGIN ITIS PLUS (VG+) bvab 2 Low - 0 score Not Available [facility] ([facility]) [address] [place], [address], 03/07/2021 07:08:13 03/04/20 21 03/07/2021 NUA B VAGIN ITIS PLUS (VG+) megasphaera 1 Low - 0 score Calcu late total score by joselo hurst the 3 indiv idual bacte rial vagin osis (BV) marke r score s toget her. Total score is inter prete d as follo ws: Total score 0-1: Indic ates the absen ce of BV. Total score 2: Indet ermin ate for BV. Addit ional clini yulisa data shoul d be evalu ated to estab ferny a diagn osis. Total score 3-6: Indic ates the prese nce of BV. This test was devel oped and its perfo rmanc e jamaica cteri stics deter mined by [facility]. It has not been clear ed or appro hector by the Food and Drug Admin istra tion. Not Available [facility] ([facility]) [address] [place], [address], 03/07/2021 07:08:13 03/04/2003/07/2021 NUSWA B VAGIN ITIS PLUS (VG+) ramu albicans, CHANDAN Negati ve negati ve Not Available [facility] ([facility]) [address] [place], [address], 03/07/2021 07:08:13 03/04/20 21 03/07/2021 NUSWA B VAGIN ITIS PLUS (VG+) ramu glabrata, CHANDAN Negati ve negati ve Not Available [facility] ([facility]) [address] [place], [address], 03/07/2021 07:08:13 03/04/20 21 03/08/2021 IGP, APTIM A HPV, RFX 16/18 ,45 diagnosis: Commen t NEGAT SAMANTHA FOR INTRA EPITH ELIAL LESIO N OR MALAMADOR ERIC . Not Available [facility] ([facility]) [address] [place], [address], 03/08/2021 16:11:21 03/04/2003/08/2021 IGP, APTIM A HPV, RFX 16/18 ,45 specimen adequacy: Commen t Satis facto ry for evalu ation . No endoc ervic al compo nent is ident ified . Not Available [facility] ([facility]) [address] [place], [address], 03/08/2021 16:11:21 03/04/20 21 03/08/2021 IGP, APTIM A HPV, RFX 16/18 ,45 clinician provided ICD10: Hector pizano Z01.4 19 B37.3 Not Available [facility] ([facility]) [address] [place], [address], 03/08/2021 16:11:21 03/04/20 21 03/08/2021 IGP, APTIM A HPV, RFX 16/18 ,45 performed by: Hector munguia, Sabine pizano (ASCP ) Not Available [facility] ([facility]) [address] [place], [address], 03/08/2021 16:11:21 03/04/20 21 03/08/2021 IGP, APTIM A HPV, RFX 16/18 ,45 . . Not Available [facility] ([facility]) [address] [place], [address], 03/08/2021 16:11:21 03/04/2003/08/2021 IGP, APTIM A HPV, RFX 16/18 ,45 note: Hector pizano The Pap smear is a scree emily test desig brianna to aid in the detec tion of maura ligna nt and malig nant condi tions of the uteri ne cervi x. It is not a diagn ostic proce dure and shoul d not be used as the sole means of detec ting cervi yulisa cance r. Both false -posi tive and false -nega tive repor ts do occur . Not Available [facility] ([facility]) [address] [place], [address], 03/08/2021 16:11:21 03/04/20 21 03/08/2021 IGP, APTIM A HPV, RFX 16/18 ,45 test methodology: Commen t This liqui d based ThinP rep(R ) pap test was mae reed with the use of an image guide benjamin silver. Not Available [facility] ([facility]) [address] [facility], [place], [address], 03/08/2021 16:11:21 03/04/20 21 03/08/2021 IGP, APTIM A HPV, RFX 16/18 ,45 HPV aptima Negati ve negati ve This nucle ic acid ampli ficat ion test detec ts fourt een high- risk HPV types (16,1 8,31, 33,35 ,39,4 5,51, 52,56 ,58,5 9,66, 68) witho ut diffe renti ation . Not Available [facility] ([facility]) [address] [facility], [place], [address], 03/08/2021 16:11:21 04/11/20 24 04/12/2024 CULTU RE, URINE , ROUTI NE culture, urine, routine SEE NOTE CULTU RE, URINE , ROUTI NE Micro Numbe r: [id number] Test Statu s: Final Speci men Sourc e: Urine , clean catch Speci men Quali ty: Adequ ate Resul t: Mixed genit al ty isola axel. These super ficia l bacte lenka are not indic ative of a urina ry tract infec tion. No furth er organ ism ident ifica tion is warra nted on this speci men. If clini narda indic ated, recol lect clean -catc h, mid-s tream urine and trans nelson immed iatel y to Urine Cultu re Trans port Tube. Not Available [facility] [address], [place], [address], 04/12/2024 19:14:56 07/02/20 19 07/01/2019 MAMMO , mae roseg, digit al, bilat eral No observ ation record ed. [email or web address] , [place], [address], 07/02/2019 09:46:22 10/09/19 21 10/09/2020 MAMMO , scree emily, digit al, bilat eral No observ ation record ed. [facility] [address] [facility] [place], [address], 10/09/2020 14:09:13 11/13/19 21 10/26/2020 stere otact ic breas t biops y (PROC ) No observ ation record ed. [address] [place], [address], 11/17/2020 10:27:54 04/12/20 21 04/10/2021 US, pelvi s, trans abdom inal + trans vagin al No observ ation record ed. [facility] [address] [facility] [place], [address], 04/20/2021 12:53:52 03/18/20 24 12/29/2023 MAMMO , diagn ostic , digit al, unila teral No observ ation record ed. [facility] Not Available 14:15:53 03/18/20 24 07/17/2023 MAMMO , scree emily, digit al, bilat eral No observ ation record ed. [facility] Not Available 14:15:54 05/21/20 24 05/18/2024 US, pelvi s, trans abdom inal + trans vagin al No observ ation record ed. MARISA Os ([facility]) Scheduling [address] [facility], [place], [address], 05/21/2024 17:15:55 Result Notes None recorded. Problems Name Problem SNOMED Code Status Onset Date Resolution Date Notes Provider Name and Address Organization Details Recorded Time Chronic back pain 760497605 Active 2019 Franchesca mcgregor, [place] - [facility] 0 11:04:36 Malignant tumor of breast 675956496 Active 2020 LINNETTE Mandel Attn: Accountin g,[address] [facility], [place], [address], [facility] 1 10:30:56 Urinary tract infectious disease 13906524 Active Kyle Hodges null, [place] - [facility] 5 12:20:39 Candidiasis 54666340 Active Kyle Hodges null, [place] - [facility] 5 12:20:39 Menopausal flushing 953427639 Active 2016 Rasheeda Schmidt null, [place] - [facility] 7 17:05:43 Problem Notes None recorded. Procedures Surgical History Date Name Laterality Status Provider Name and Address Organization Details Recorded Time 03/04/20 24 Breast Biopsy completed Annemarie Gipson [place] - [facility] 03/15/2024 09:37:19 03/04/20 21 Date of Last Pap Smear completed Ana Sin RN [facility] 03/09/2021 10:42:39 10/09/19 21 Most Recent Mammogram completed Ana Sin RN [facility] 10/09/2020 09:59:04 08/14/20 20 Date of Last Mammogram completed Franchesca Castillo [facility] 08/14/2020 11:03:48 08/28/19 00 Total hysterectomy completed Teena De Jesus APN, [employer]-C Attn: Accounting,[address] [facility], [place], [address], [facility] 06/27/2023 11:28:35 repair of shoulder completed Franchesca Castillo [facility] 08/14/2020 11:04:27 Imaging Results Imaging Date Name Status LastModified by Organization Details LastModified Time 07/01/2019 MAMMO, screening, digital, bilateral completed [email or web address] [address] [place], [address], 07/02/2019 09:46:22 10/09/2020 MAMMO, screening, digital, bilateral [facility] [address] [place], [address], 10/09/2020 14:09:13 10/26/2020 stereotactic breast biopsy (PROC) [facility] [address] [facility] [place], [address], 11/17/2020 10:27:54 04/10/2021 US, pelvis, transabdominal + transvaginal completed [email or web address] [facility] Scheduling [address] [facility] [place], [address], 04/20/2021 12:53:52 12/29/2023 MAMMO, diagnostic, digital, unilateral completed deldredsmit Information not available 03/22/2024 14:15:53 07/17/2023 MAMMO, screening, digital, bilateral completed deldredsmith Information not available 03/22/2024 14:15:54 05/18/2024 US, pelvis, transabdominal + transvaginal completed MARISA Osf ([facility]) Scheduling [address] [facility] [place], [address], 05/21/2024 17:15:55 Procedure Notes None recorded. Medical Equipment None Reported. Allergies Allergen ID Allergen Name Allergen Category Reaction Reaction Severity Criticality Documentation Date Start Date Code Code System Note Provider Name and Address Organization Details Recorded Time 11342 Substance with sulfonami de structure and antibacte rial mechanism of action (substanc e) medicatio n Not available Not available Not available 06/14/2016 80520 8003 SNOMED Not Available Not Available Not Available 90580 Cipro medicatio n Not available Not available Not available 06/14/2016 62790 3 RxNorm Not Available Not Available Not Available 37952 Product containin g penicilli n (product) medicatio n Not available Not available Not available 12/19/2016 38880 8001 SNOMED Not Available Not Available Not Available Medications Name Sig Start Date Stop Date Status Note LastModified by Organization Details LastModified Time celecoxib 200 mg capsule TAKE 1 CAPSULE BY MOUTH EVERY DAY WITH FOOD 12/01 completed Not Available Not Available Not Available cyclobenzap rine 10 mg tablet TAKE ONE TABLET BY MOUTH THREE TIMES A DAY NEEDED FOR SPASMS 03/15 completed Not Available Not Available Not Available metformin 500 mg tablet TAKE 1 TABLET BY MOUTH TWICE A DAY WITH MEALS 03/15 completed Not Available Not Available Not Available BD Luer-Hermilo Syringe 3 mL 25 x 1 1/2 USE TO INJECT B12 ONCE MONTHLY active Not Available Not Available No t Available venlafaxine ER 37.5 mg capsule,ext ended release 24 hr 12/01 completed Not Available Not Available Not Available venlafaxine ER 75 mg capsule,ext ended release 24 hr Take 1 capsule every day by oral route. 12/01 completed Not Available Not Available Not Available nitrofurant oin macrocrysta l 50 mg capsule 02/12 completed Not Available Not Available Not Available doxycycline hyclate 100 mg capsule TAKE 1 CAPSULE BY MOUTH TWICE A DAY FOR 10 DAYS 03/15 completed Not Available Not Available Not Available clindamycin HCl 300 mg capsule TAKE 1 CAPSULE BY MOUTH THREE TIMES A DAY FOR 5 DAYS 03/15 completed Not Available Not Available Not Available estradiol 0.075 mg/24 hr semiweekly transdermal patch APPLY 1 PATCH TWICE WEEKLY 2023 active Not Available Not Available Not Avai lable azithromyci n 250 mg tablet TAKE 2 TABLETS BY MOUTH TODAY, THEN TAKE 1 TABLET DAILY FOR 4 DAYS 12/01 completed Not Available Not Available Not Available fluconazole 150 mg tablet TAKE ONE TABLET BY MOUTH ONCE FOR YEAST INFECTION , MAY REPEAT IN 2-3 DAYS IF NEEDED active Not Available Not Available No t Available benzonatate 200 mg capsule TAKE 1 ORAL CAPSULE 3 TIMES A DAY FOR COUGH 12/01 completed Not Available Not Available Not Available Synthroid 150 mcg tablet TAKE 1 TABLET (150 MCG) BY MOUTH DAILY IN THE MORNING. 03/15 completed Not Available Not Available Not Available meloxicam 15 mg tablet 07/06 completed Not Available Not Available Not Available Synthroid 125 mcg tablet TAKE 1 TABLET (125 MCG TOTAL) BY MOUTH DAILY DX:E89.0 active Not Available Not Available No t Available prednisone 20 mg tablet 07/06 completed Not Available Not Available Not Available topiramate 25 mg tablet TAKE 1 TABLET BY MOUTH EVERY DAY active Not Available Not Available No t Available phentermine 37.5 mg tablet TAKE 1 TABLET BY MOUTH DAILY BEFORE BREAKFAST . active Not Available Not Available No t Available estradiol 0.05 mg/24 hr semiweekly transdermal patch APPLY 1 PATCH TO SKIN TWICE A WEEK DIRECTED. 12/01 completed Not Available Not Available Not Available ciprofloxac in 500 mg tablet 07/06 completed Not Available Not Available Not Available sulfamethox azole 800 mg-trimetho prim 160 mg tablet Take 1 tablet every 12 hours by oral route for 7 days. 07/06 completed Not Available Not Available Not Available omeprazole 40 mg capsule,del ayed release TAKE 1 CAPSULE BY MOUTH EVERY DAY 12/01 completed Not Available Not Available Not Available tramadol 50 mg tablet TAKE 1 TABLET EVERY 6 HOURS NEEDED FOR PAIN active Not Available Not Available No t Available triamcinolo ne acetonide 0.1 % topical cream 07/06 completed Not Available Not Available Not Available butalbital- acetaminoph en-caffeine 50 mg-325 mg-40 mg tablet 07/06 completed Not Available Not Available Not Available Synthroid 175 mcg tablet TAKE ONE TABLET BY MOUTH IN THE AUTOMOBILE WRECKER 03/15 completed Not Available Not Available Not Available meloxicam 7.5 mg tablet TAKE ONE TABLET BY MOUTH ONCE DAILY WITH FOOD. 12/01 completed Not Available Not Available Not Available oxycodone-a cetaminophe n 5 mg-325 mg tablet 12/01 completed Not Available Not Available Not Available famotidine 20 mg tablet TAKE 1 TABLET BY MOUTH TWICE A DAY 03/15 completed Not Available Not Available Not Available methocarbam ol 750 mg tablet TAKE ONE TABLET BY MOUTH EVERY 8 HOURS NEEDED FOR MUSCLE SPASMS. active Not Available Not Available No t Available DOK 100 mg capsule 12/01 completed Not Available Not Available Not Available Flagyl 500 mg tablet Take 1 tablet twice a day by oral route for 7 days. 12/01 completed Not Available Not Available Not Available phenazopyri dine 100 mg tablet 02/12 completed Not Available Not Available Not Available doxycycline monohydrate 100 mg capsule TAKE ONE CAPSULE BY MOUTH TWO TIMES A DAY FOR TEN DAYS 03/04 completed Not Available Not Available Not Available hydrocodone 7.5 mg-acetamin ophen 325 mg tablet 02/12 completed Not Available Not Available Not Available pantoprazol e 40 mg tablet,clark yed release TAKE 1 TABLET BY MOUTH EVERY DAY active Not Available Not Available No t Available cyanocobala min (vit B-12) 1,000 mcg/mL injection solution INJECT 1 ML (1,000 MCG) BY INTRAMUSC ULAR INJECTION EVERY 30 DAYS. active Not Available Not Available No t Available ranitidine 150 mg tablet 12/01 completed Not Available Not Available Not Available BD Luer-Hermilo Syringe 3 mL 25 gauge x 1 USE TO INJECT B12 ONCE MONTHLY active Not Available Not Available No t Available gabapentin 300 mg capsule 07/06 completed Not Available Not Available Not Available hydroxyzine HCl 25 mg tablet 07/06 completed Not Available Not Available Not Available codeine 10 mg-guaifene sin 100 mg/5 mL oral liquid 07/06 completed Not Available Not Available Not Available clobetasol 0.05 % topical ointment 02/12 completed Not Available Not Available Not Available epinephrine 0.3 mg/0.3 mL injection, auto-inject or 03/15 completed Not Available Not Available Not Available levofloxaci n 500 mg tablet 02/12 completed Not Available Not Available Not Available methylpredn isolone 4 mg tablets in a dose pack 02/12 completed Not Available Not Available Not Available albuterol sulfate HFA 90 mcg/actuati on aerosol inhaler TAKE 2 INHALATIO NS EVERY 4-6 NEEDED active Not Available Not Available No t Available fluticasone propionate 50 mcg/actuati on nasal spray,suspe nsion INSTILL 1 SPRAY IN EACH NOSTRIL TWICE DAILY 03/15 completed Not Available Not Available Not Available sertraline 50 mg tablet 07/06 completed Not Available Not Available Not Available doxycycline hyclate 100 mg tablet TAKE 1 TABLET BY MOUTH 2 TIMES DAILY FOR 7 DAYS 12/01 completed Not Available Not Available Not Available amoxicillin 875 mg-potassiu m clavulanate 125 mg tablet 06/14 completed Not Available Not Available Not Available Estrace 0.01% (0.1 mg/gram) vaginal cream Insert 1 g 3 times a week by vaginal route. 05/12 completed Not Available Not Available Not Available Synthroid 137 mcg tablet TAKE 1 TABLET BY MOUTH EVERY DAY 03/15 completed Not Available Not Available Not Available bupropion HCl XL 300 mg 24 hr tablet, extended release TAKE 1 TABLET BY MOUTH DAILY IN THE AUTOMOBILE WRECKER. 03/15 completed Not Available Not Available Not Available bupropion HCl XL 150 mg 24 hr tablet, extended release TAKE 1 TABLET BY MOUTH EVERY DAY IN THE MORNING active Not Available Not Available No t Available nitrofurant oin monohydrate /macrocryst als 100 mg capsule TAKE 1 CAPSULE BY MOUTH EVERY 12 HOURS FOR 7 DAYS active Not Available Not Available No t Available duloxetine 20 mg capsule,del ayed release 12/19 completed Not Available Not Available Not Available duloxetine 30 mg capsule,del ayed release TAKE 1 CAPSULE BY MOUTH EVERY DAY 03/15 completed Not Available Not Available Not Available duloxetine 60 mg capsule,del ayed release TAKE 1 CAPSULE BY MOUTH EVERY DAY 03/15 completed Not Available Not Available Not Available Prevacid 12/19 completed Not Available Not Available Not Available Linzess 145 mcg capsule 07/06 completed Not Available Not Available Not Available Linzess 290 mcg capsule TAKE 1 CAPSULE (290 MCG) BY MOUTH DAILY BEFORE BREAKFAST . active Not Available Not Available No t Available Belviq 10 mg tablet 02/12 completed Not Available Not Available Not Available Ozempic 0.25 mg or 0.5 mg (2 mg/1.5 mL) subcutaneou s pen injector INJECT 0.25 MG BY SUBCUTANE OUS INJECTION EVERY 7 DAYS. 12/01 completed Not Available Not Available Not Available Vitals Date Recorded Body height Body mass index (BMI) Body weight Systolic blood pressure Diastolic blood pressure Provider Name and Address Organization Details Last Updated DateTime 02/12/2019 162.56 cm 33 kg/m2 17127.54 g 126 mm[Hg] 80 mm[Hg] Dayana Mejia [place] - [facility] 9 15:24:47 Date Recorded Body height Body mass index (BMI) Body weight Systolic blood pressure Diastolic blood pressure Provider Name and Address Organization Details Last Updated DateTime 03/04/2021 170.18 cm 30 kg/m2 23852.54 g 108 mm[Hg] 72 mm[Hg] Dayana Mejia [place] - [facility] 1 10:08:59 Date Recorded Body height Body mass index (BMI) Body weight Heart rate Respiratory rate Systolic blood pressure Diastolic blood pressure Provider Name and Address Organization Details Last Updated DateTime 3 170.18 cm 31 kg/m2 72652.8 9 g 67 /min 16 /min 103 mm[Hg] 70 mm[Hg] Franchesca Castillo [facility] 3 15:56:08 Date Recorded Body height Body mass index (BMI) Body weight Heart rate Systolic blood pressure Diastolic blood pressure Provider Name and Address Organization Details Last Updated DateTime 4 162.56 cm 33.6 kg/m2 59021.7 g 71 /min 108 mm[Hg] 70 mm[Hg] Annemarie villalobos MA [facility] 4 09:31:42 Social History Question Answer Notes LastModified by Organizat ion Details LastModified Time Tobacco Smoking Status Never Smoker Mackenzie [email or web address], [facility] 02/10/2015 11:55:58 What Is Your Level Of Alcohol Consumption? Occasional Information not available 02/10/2015 What Is Your Level Of Caffeine Consumption? Heavy Information not available 02/10/2015 How Much Tobacco Do You Chew? None Information not available 02/10/2015 In The 14 Days Before Symptom Onset, Have You Had Close Contact With A Laboratory-confir med COVID-19 While That Case Was Ill? No [email or web address] Information not available 12/01/2022 In The 14 Days Before Symptom Onset, Have You Had Close Contact With A Person Who Is Under Investigation For COVID-19 While That Person Was Ill? No [email or web address] Information not available 12/01/2022 Have You Been To An Area Known To Be High Risk For COVID-19? No [email or web address] Information not available 12/01/2022 Are You Currently Employed? Yes Information not available 08/14/2020 What Type Of Diet Are You Following? REGULAR Information not available 02/10/2015 Do You Or Have You Ever Used E-cigarettes Or Vape? Never Used Electronic Cigarettes [email or web address] Information not available 08/14/2020 What Is Your Occupation? Works From Home [email or web address] Information not available 08/14/2020 Live Alone Or With Others? With Others [email or web address] Information not available 08/14/2020 What Was The Date Of Your Most Recent Tobacco Screening? 03/15/2024 [email or web address] Information not available 03/15/2024 How Many Children Do You Have? 2 Information not available 02/10/2015 Performs Monthly Self-breast Exam? Yes [email or web address] Information no t available 08/14/2020 Do You Use Protection During Sex? No [email or web address] Information not available 08/14/2020 What Is Your Relationship Status? Information not available 08/14/2020 Seat Belts Used Routinely Yes Information not available 08/14/2020 Are You Sexually Active? Yes [email or web address] Information not available 08/14/2020 Do You Have Smoke And Carbon Monoxide Detectors In Your Home? Yes Information not available 12/01/2022 Are You Passively Exposed To Smoke? No [email or web address] Information no t available 12/01/2022 Do You Or Have You Ever Used Smokeless Tobacco? Never Used Smokeless Tobacco [email or web address] Information not available 08/14/2020 How Much Tobacco Do You Smoke? No Information not available 08/14/2020 General Stress Level Medium Information not available 02/10/2015 Do You Use Any Illicit Or Recreational Drugs? No [email or web address] Information not available 12/01/2022 Do You Use Sunscreen Routinely? Yes [email or web address] Information not available 08/14/2020 Do You Or Have You Ever Used Any Other Forms Of Tobacco Or Nicotine? No [email or web address] Information not available 12/01/2022 Sex: Female Functional Status Question Answer Note LastModified by Organization D etails LastModified Time What is your exercise level? Moderate Information not available 02/10/2015 Mental Status None recorded. Family History Relationship Description Onset Age of this Age Resolved Age Notes LastModified by Organization Details LastModified Time Maternal Grandmother Diabetes mellitus [email or web address] Not available 2015 15:56:33 Maternal Grandmother Malignant tumor of breast [email or web address] Not available 2015 15:56:23 Mother Adenosine deaminase deficiency [email or web address] Not available 12/19 17:06:18 Mother History of thyroid disorder [email or web address] Not available 2015 15:56:53 Sister Lupus erythematosu s [email or web address] Not available 2015 15:57:05 Sister History of thyroid disorder [email or web address] Not available 2015 15:56:48 Paternal Grandfather Malignant tumor of colon [email or web address] Not available 2015 15:56:14 Medical History Condition Response Breast Problem Y Acid Reflux (GERD) Y Headaches/Migraines Y Thyroid Problems Y Kidney or Bladder Problems Y Gynecological History Statement/Question Response Abnormal Pap N Date of Last Mammogram 08/14/2020 STIs/STDs N HPV Vaccine N Most Recent Mammogram 10/09/2020 Age at Menarche 14 Current Control Method Hysterectom y Age at First Child 30 Sexually Active? Y Menses Monthly N Date of Last Pap Smear 03/04/2021 Sexual Problems? N LMP Unknown Desired Control Method Hysterectom y Obstetrics History GPAL:G 2 P 2 0 0 2 Type Value Full Term 2 Living 2 Total 2 Past Encounters Encounter ID Performer Location Encounter Start Date Encounter Closed Date Diagnosis/Indication Diagnosis SNOMED-CT Code Diagnosis ICD10 Code Diagnosis Note [id number] Bertrand Desai ([place] [address]) [address] [place] [address] 02/10/2015 11:35:13 02/10/2015 12:25:13 Urinary tract infectious disease 83979986 patient advised that if culture negative will discontinu e antibiotic and followup with pcp Candidiasis 87265364 [id number] Lauren Trevino [facility] Bertrand Desai ([facility] [address]) [address] [place] [address] 06/14/2016 15:33:13 06/14/2016 16:33:20 Pain of breast 96979498 N64.4 [id number] Lauren Trevino [facility] Bertrand Desai ([place] [address]) [address] [place] [address] 07/06/2016 15:43:17 07/07/2016 09:54:04 Gynecologic examination 75781421 Z01.419 Pain of breast 67480827 N64.4 [id number] SAM King ([facility] [address]) [address] [place] [address] 12/19/2016 16:56:37 12/30/2016 14:11:29 Menopausal syndrome 706350920 N95.9 [id number] Lauren Trevino [facility] Bertrand Desai ([facility] [address]) [address] [place] [address] 02/20/2017 16:42:56 02/21/2017 08:39:53 Menopausal flushing 543076053 N95.1 Vaginal discharge 344404 006 N89.8 [id number] [facility] ([place] [address]) [address] [facility] [address] [place] [address] 08/01/2017 15:43:11 08/09/2017 12:35:37 Screening mammography 10998337 Z12.31 Menopausal flushing 1981 20569 N95.1 [id number] LINNETTE Mandel 14 [address] [facility] [address] [place] [address] 02/12/2019 15:16:17 02/13/2019 09:18:20 Gynecologic examination 71665634 Z01.419 1. Counseled regarding prevention of STD's , condom use 2. Pap done and mammogram order given 3. Advised avoidance of tobacco, alcohol, and drugs . 4. Counseled regarding folic acid supplement ation, calcium needs and prevention of osteoporos is . 5. BSE reviewed and recommende d. 6. Follow up in one year or sooner if needed. Menopausal flushing 1981 19358 N95.1 1. Discussed hormonal options and otc herbal options for menopausal management . Discussed risk factors and side effects associated with both options including increase risk of cancer, heart attack and stroke, blood clots. 2. Pt to continue hormone patch. Verbalized understand ing of side effects and risk factors. 3. List of otc meds given to patient to help with symptoms. Instructed patient to consult with pharmacist regarding any interactio n current meds may have with herbal otc and pt verbalized understand ing. 4. Pt to call and schedule for annual or sooner if needed. [id number] LINNETTE Mandel 14 OB [address] [facility] [address] [place] [address] 08/14/2020 10:55:17 08/17/2020 11:21:06 Menopausal syndrome 397476705 N95.9 1. Discussed hormonal options and otc herbal options for menopausal management . Discussed risk factors and side effects associated with both options including increase risk of cancer, heart attack and stroke, blood clots. 2. Pt would like to continue hrt at this time 3. Reviewed risk factors of hrt including increased risk of stroke, heart attack, certain cancers. pt verbalized understand ing. 4. will follow up in 3 months, sooner if needed. [id number] Lori Shrestha [facility] [address] [place] [address] [place] [address] 03/04/2021 09:56:12 03/05/2021 07:47:44 Gynecologic examination 28785745 Z01.419 1. Counseled regarding prevention of STD's , condom use 2. Pap done and sent to lab on vaginal vault 3. Advised avoidance of tobacco, alcohol, and drugs . 4. Counseled regarding folic acid supplement ation, calcium needs and prevention of osteoporos is . 5. BSE reviewed and recommende d. 6. Follow up in one year or sooner if needed. Pain in pelvis 47003770 R10.2 Will order pelvic ultrasound . Pt advised on treatment options for ovarian cysts.. Pt educated on other causes of pelvic pain included but not limited to constipati on or bladder issues. Pt verbalized understand ing. Will follow up pending results. Candidal vulvovaginitis 53442499 B37.3 Nuswab done and sent to lab. Counseled on STD prevention and condom use. Counseled on yeast and BV prevention . Will follow up pending lab results. Malignant tumor of breast 867886701 C50.211 Pt to follow with oncologist . [id number] Lori Shrestha [facility] [address] [place] [address] 12/01/2022 15:18:22 12/07/2022 11:06:49 Menopausal syndrome 948622755 N95.9 1. Discussed hormonal options and otc herbal options for menopausal management . Discussed risk factors and side effects associated with both options including increase risk of cancer, heart attack and stroke, blood clots. 2. Pt would like to continue hrt but change to vaginal cream not patch at this time 3. Reviewed risk factors of hrt including increased risk of stroke, heart attack, certain cancers. pt verbalized understand ing. 4. will follow up in 12 months, sooner if needed. Gynecologi c examination 58248190 Z01.419 1. Counseled regarding prevention of STD's , condom use 2. Pelvic done. 3. Advised avoidance of tobacco, alcohol, and drugs . 4. Counseled regarding folic acid supplement ation, calcium needs and prevention of osteoporos is . 5. BSE reviewed and recommende d. 6. Follow up in one year or sooner if needed. Obesity 019369186 E66.9 Discussed diet and weight loss. Discussed making healthier food choices and increasing exercise. Discussed going to a motor vehicle light assembler. [id number] Lori Shrestha [employer]- [facility] 14 OB 4 [facility] [address] [address] 03/15/2024 09:18:57 03/19/2024 12:15:21 Menopausal syndrome 344676739 N95.9 1. Discussed hormonal options and otc herbal options for menopausal management . Discussed risk factors and side effects associated with both options including increase risk of cancer, heart attack and stroke, blood clots. 2. Pt would like to continue hrt but change to vaginal cream not patch at this time 3. Reviewed risk factors of hrt including increased risk of stroke, heart attack, certain cancers. pt verbalized understand ing. 4. will follow up in 12 months, sooner if needed. Gynecologi c examination 14366622 Z01.419 1. Counseled regarding prevention of STD's , condom use 2. Pelvic done. 3. Advised avoidance of tobacco, alcohol, and drugs . 4. Counseled regarding folic acid supplement ation, calcium needs and prevention of osteoporos is . 5. BSE reviewed and recommende d. 6. Follow up in one year or sooner if needed. Candidiasis of vagina 72 503040 B37.31 Health Concerns Section Related Observation LastModified by Organization Detai ls LastModified Time None Recorded Concern Status LastModified by Organization Details LastModified Time None Recorded Advance Directives Directive None Recorded Payers Encounter Date Sequence Insurance Name Policy Number Policy Roche Covered Member ID Roche Member ID Guarantor Name 02/12/2019 1 [place] [id number] Bianca Cortés Recio [id number] Bianca Recio 02/12/2019 2 Relevant [employer]-solution [facility] (POS II) Randy Recio [id number] Bianca Recio 08/14/2020 1 [place] [id number] Bianca Cortés Recio [id number] Bianca Recio 08/14/2020 2 [facility] [employer] - [employer] (POS II) Randy Recio [id number] Bianca Recio 03/04/2021 1 [place] [id number] Bianca D Recio [id number] Bianca Recio 03/04/2021 2 [facility] - [employer]ETNA (POS II) Randy Recio [id number] Bianca Recio 12/01/2022 1 [place] [id number] Bianca D Recio [id number] Bianca Recio 12/01/2022 2 [facility] [place] - [place]ET[place] CHOICE POS II (POS) Randy Recio [id number] Bianca Recio 03/15/2024 1 [place] [id number] Bianca D Recio [id number] Bianca Recio 03/15/2024 2 [facility] [place] - [place] CHOICE POS II (POS) Randy Recio [id number] Bianca Recio Notes Date Note Type Note Provider Name and Address Organization Details Recorded Time 02/12/2019 text/html Annual GYNReport ed bypatient.History:no gynecologic complaints Menstrual cycle:Normal menses Urinary symptoms:No hematuria; No incontinence Vulva:No genital lesion Vagina:Normal vaginal discharge Breast:No breast pain; No breast lump; No nipple discharge Sexual complaints:No sexual complaints; No pain during intercourse; Normal libido Menopausal Symptoms:No menopausal symptoms; Normal vaginal lubrication Psychological symptoms:No depression; No anxiety; No PMDD Preventive measures:Encourage self breast examination; Encourage regular exercise; Encourage no tobacco use; Encourage regular mammograms starting age 40; Mammogram performed within the past year Pt has complaints of increasing hot flashes, irritability, insomnia and weight gain that she feels is from menopause. No other complaints. Would like to increase patch if possible and add venlafaxine. Lori Shrestha, [facility]- Attn: [address]ing[address] [place], [address], [facility] 02/12/2019 15:41:10 08/14/2020 text/html Annual GYNReport ed bypatient.History:no gynecologic complaints Urinary symptoms:No hematuria; No incontinence Vulva:No genital lesion Vagina:Normal vaginal discharge Breast:No breast pain; No breast lump; No nipple discharge Sexual complaints:No sexual complaints; No pain during intercourse; Normal libido Menopausal Symptoms:No menopausal symptoms; Normal vaginal lubrication Psychological symptoms:No depression; No anxiety; No PMDD Preventive measures:Encourage self breast examination; Encourage regular exercise; Encourage no tobacco use; Encourage regular mammograms starting age 40; Mammogram performed within the past year phone visit. doing well. hysterectomy. on hrt patch, would like to continue. had mammogram this am. LINNETTE Mandel Attn: Accounting[address] [place], [address], [facility] 08/14/2020 11:09:30 03/04/2021 text/html Annual GYNReport ed bypatient.Urinary symptoms:No hematuria; No incontinence Vulva:No genital lesion Vagina:Normal vaginal discharge Sexual complaints:No sexual complaints; No pain during intercourse; Normal libido Menopausal Symptoms:No menopausal symptoms; Normal vaginal lubrication Psychological symptoms:No depression; No anxiety; No PMDD Preventive measures:Encourage self breast examination; Encourage regular exercise; Encourage no tobacco use; Encourage regular mammograms starting age 40; Mammogram performed within the past year - pt undergoing chemo for stage 4 breast cancer found in October 2020- still on estrodiol patch- ok'd it with oncologist- breast cancer is not estrogen driven and is double negative- pt requests ultrasound order for sharp pain last month in ovary area right side, states history of endometriosis (hysterectomy 20 years ago) and ovarian cysts- occasional white discharge, would like swab, took monistat last week LINNETTE Mandel Attn: Accounting[address] [place], [address], [facility] 03/04/2021 10:31:16 12/01/2022 text/html Annual GYNReport ed bypatient.Urinary symptoms:No hematuria; No incontinence Vulva:No genital lesion Vagina:Normal vaginal discharge Sexual complaints:No sexual complaints; No pain during intercourse; Normal libido Menopausal Symptoms:No menopausal symptoms; Normal vaginal lubrication Psychological symptoms:No depression; No anxiety; No PMDD Preventive measures:Encourage self breast examination; Encourage regular exercise; Encourage no tobacco use; Encourage regular mammograms starting age 40; Mammogram performed within the past year 57 yo fe here for annual exam- treatment done for stage 4 breast cancer found in October 2020 right breast, pt has cyst under nipple in right breast but told it was benign, surgeon following- still on estrodiol patch- ok'd it with oncologist- breast cancer is not estrogen driven and is double negative- pt requested ultrasound 04/10/21 for sharp pain in ovary area right side, states history of endometriosis (hysterectomy 20 years ago) and ovarian cysts- ultrasound wnl-, hx gerd, migraines, breast cancer, hypothyroidism LINNETTE Mandel Attn: Accounting[address] [place], [address], [facility] 12/01/2022 16:14:27 03/15/2024 text/html Annual GYNReport ed bypatient.Urinary symptoms:No hematuria; No incontinence Vulva:No genital lesion Vagina:Normal vaginal discharge Sexual complaints:No sexual complaints; No pain during intercourse; Normal libido Menopausal Symptoms:No menopausal symptoms; Normal vaginal lubrication Psychological symptoms:No depression; No anxiety; No PMDD Preventive measures:Encourage self breast examination; Encourage regular exercise; Encourage no tobacco use; Encourage regular mammograms starting age 40; Mammogram performed within the past year 58 yo fe here for annual exam- treatment done for stage 4 breast cancer found in October 2020 right breast, pt has cyst under nipple in right breast but told it was benign, surgeon following- still on estrodiol patch- ok'd it with oncologist- breast cancer is not estrogen driven and is double negative- pt requested ultrasound 04/10/21 for sharp pain in ovary area right side, states history of endometriosis (hysterectomy 20 years ago) and ovarian cysts- ultrasound wnl-, hx gerd, migraines, breast cancer, hypothyroidism- last pap wnl 03/04/21 LINNETTE Mandel Attn: Accounting[address] [place], [address], [place] [facility] 03/15/2024 09:54:23 OBGyn Episode No OBEpisode recorded.
--- OUTSIDE RECORDS SUMMARY | 2024-11-22 09:26 | XMS_ITS ---
Author Organization [facility] Address [facility] [place] [address] Care Team Providers Care Desk Clerks Supervisor Name Role Phone Maximiliano Bullard MD Primary Care Provider + Jace Hernandez MD PhD Unavailable Diya Croft MD PhD Unavaila ble Jaxson Baig MD Unavailable [phone] Active Problems Problem Noted Date Diagnosed Date Candidiasis 02/25/2022 Migraine headache 02/25/2022 Urinary tract infectious disease 02/25/2022 History of breast cancer 08/10/2021 Axillary lymphadenopathy 07/05/2021 Breast pain, right 07/05/2021 Abnormal findings on diagnostic imaging of breas t 06/22/2021 Malignant neoplasm of breast 03/04/2021 History of partial mastectomy of right breast Malignant neoplasm of upper- outer quadrant of right breast in female, estrogen receptor negative 12/23/2020 Cancer Staging:Pathologic stage from 12/16/2020:Stage IB(pT1a, pN0(sn), cM0, G3, ER-, CT-, HER2-) - Signed by Jace Hernandez MD PhD on 01/18/2021 Chronic back pain 08/14/2020 Gallbladder polyp 01/24/2019 Overview (02/25/2022): 06/14- stable 4mm, symptomatic referred to gen surg 01/13 Vitamin B12 deficiency (non anemic) 01/24/2019 Cervical lymphadenopathy 12/13/2018 Overview (02/25/2022): 12/14 US Constipation 11/21/2018 Obesity (BMI 30.0-34.9) 10/03/2018 Assessment & Plan (07/02/2023 5:47 AM CAMPUS REP): Counseled on diet and exercise Wheat allergy 10/03/2018 Overview (02/25/2022): Celiac ab negative 10/16 Incomplete tear of right rotator cuff 01/25/2018 Menopausal flushing 12/19/2016 Abnormal LFTs (liver function tests) 03/07/2016 Menopause 03/07/2016 Vitamin D deficiency 03/07/2016 Contact dermatitis 07/12/2014 Overview (12/02/2016): Contact dermatitis Migraine 01/11/2014 Overview (12/01/2016): Migraine Muscle pain 01/11/2014 Overview (12/01/2016): Myalgia Gastroesophageal reflux disease without esophagi tis 01/11/2014 Overview (02/25/2022): GERD (gastroesophageal reflux disease) Anxiety 01/11/2014 Overview (12/03/2016): Anxiety Mass of breast 09/10/2009 Hypothyroidism 08/28/1994 Overview (02/25/2022): Hypothyroid Ablation Assessment & Plan (04/08/2024 9:44 PM CDT): Chronic, stable Last Recent TSH WNL Continue Synthroid 125 mcg oral daily Brand name is preferred Take thyroid pill all by itself Take thyroid pill one hour before food or 2 to 3 hours after food Heat, humidity, and direct sunlight will cause a loss of potency Never store thyroid pill in the bathroom The medication should be taken daily. If one or more pills are missing in a week, they can be taken all together at once, making sure at the end of the week, 7 tabs have been taken. Assessment & Plan (07/02/2023 5:46 AM CAMPUS REP): Chronic, improving Recent TSH WNL Continue Synthroid 125 mcg oral daily Brand name is preferred Take thyroid pill all by itself Take thyroid pill one hour before food or 2 to 3 hours after food Heat, humidity, and direct sunlight will cause a loss of potency Never store thyroid pill in the bathroom The medication should be taken daily. If one or more pills are missing in a week, they can be taken all together at once, making sure at the end of the week, 7 tabs have been taken. Assessment & Plan (10/31/2022 3:48 PM CAMPUS REP): Reviewed pt last few thyroid lab results Suppressed TSH Advised to decrease Synthroid to 137 mcg oral daily Recheck TSH in 3 months Brand name is preferred Take thyroid pill all by itself Take thyroid pill one hour before food or 2 to 3 hours after food Heat, humidity, and direct sunlight will cause a loss of potency Never store thyroid pill in the bathroom The medication should be taken daily. If one or more pills are missing in a week, they can be taken all together at once, making sure at the end of the week, 7 tabs have been taken. Current Treatment and Therapy Plans No current plan information found. Past Treatment and Therapy Plans No past plan information found. Radiation Treatments * Course [id number]_BRS_202002/25/2021 - 03/25/2021 Treatment Period Energy Fraction Dose Fractions Total Dose Plans Planned Rt Brst Boost 03/22/2021 - 03/25/2021 250 4 / 1,000 Rt Breast_NEW 02/25/2021 - 03/19/2021 266 16 / 4,256 Reference Points Delivered RtBreastBst_5256 03/22/2021 - 03/25/2021 1,000 RtBreast_4256 02/25/2021 - 03/19/2021 4,256 Lifetime Dose Tracking * Chemical Lifetime Dose Automatic Entry Manual Entr y Fluoro Time 0.237 minutes 0.237 minutes 0 minutes Air kerma at the reference point (Ka,r) 2.41 mGy 2 .41 mGy 0 mGy DLP 64 mGycm 64 mGycm 0 mGycm
--- OUTSIDE RECORDS SUMMARY | 2024-11-22 09:26 | XMS_ITS | Encounter Summary ---
Author Organization [facility] Address [address] [place] [address] Care Team Providers Care Data Reviewer Name Role Phone Maximiliano Bullard MD Primary Care Provider [phone] Reason for Visit * Reason Comments Results Encounter Details Date Type Department Care Team (Late st Contact Info) Description 10/23/2023 Telephone [facility] Primary Care [address] [place] [address] Maximiliano Bullard MD [address] [place] [address] [address] [place] [address] Results Social History Tobacco Use Types Packs/Day Years Used Date Smoking Tobacco: Never Passive Smoke Exposure: Never Smokeless Tobacco: Never Alcohol Use Standard Drinks/Week Comments Yes 5 (1 standard drink = 0.6 oz pur e alcohol) Comments No Sex and Gender Information Value Date Recorded Sex Assigned at Not on file Legal Sex Female 3:31 AM [employer] SUPERVIS[employer] Gender Identity Not on file Sexual Orientation Not on file documented as of this encounter Miscellaneous Notes * Telephone Encounter - Caridad Carvalho LPN - 10/23/2023 3:27 PM CST Spoke with pt and informed results have not been received., L CANS SUPERVISOR * Telephone Encounter - Taylor Fuentes - 10/23/2023 3:18 PM CST Copied from [facility] #[id number]. Topic: CPA Information Request - Results >> Oct 23, 2023 3:17 PM Taylor Faustin wrote: Caller is requesting results: Patient has Question about Results Caller Name: Bianca Recio Patient/Caregiver Callback Number: [phone] (home) Call Notes: Patient is calling to discuss the results of the gallbladder test. L CANS SUPERVISOR documented in this encounter Plan of Treatment Upcoming Encounters Date Type Department Care Team (Late st Contact Info) Description 04/16/2025 3:00 PM CDT Office Visit [facility] Primary Care [address] [place] [address] Maximiliano Bullard MD [address] [place] [address] documented as of this encounter Visit Diagnoses Not on filedocumented in this encounter Care Teams Data Reviewer Relationship Specialty Start Date End Date Maximiliano Bullard MD PCP - General Internal Medicine 03/07/16 documented as of this encounter
--- OUTSIDE RECORDS SUMMARY | 2024-11-22 09:26 | XMS_ITS | Encounter Summary ---
Author Organization [facility] Healthcare Address [address] [place] [address] Care Team Providers Care Lower In Supervisor Name Role Phone Maximiliano Bullard MD Primary Care Provider + Jace Hernandez MD PhD Unavailable [phone] Diya Croft MD PhD Unavaila ble Jaxson Baig MD Unavailable [phone] Encounter Details Date Type Department Care Team (Late st Contact Info) Description 07/18/2023 Telephone [facility] [address] [place], [place] [id number] Yesenia Baltazar Social History Tobacco Use Types Packs/Day Years Used Date Smoking Tobacco: Never Smokeless Tobacco: Never Alcohol Use Standard Drinks/Week Comments Yes 0 (1 standard drink = 0.6 oz pur e alcohol) AUDIT-C Answer Date Recorded Q1: How often do you have a drink containing alc ohol? Monthly or less 08/02/2021 Q2: How many drinks containi ng alcohol do you have on a typical day when you are drinking? 1 or 2 08/02/2021 Q3: How often do you have si x or more drinks on one occasion? Never 08/02/2021 Comments No Sex and Gender Information Value Date Recorded Sex Assigned at Not on file Legal Sex Female 2:37 PM CADDY Gender Identity Female 10/24/2022 6:31 AM CADDY Sexual Orientation Straight 01/21/2021 6: 44 AM CDT documented as of this encounter Miscellaneous Notes * Telephone Encounter - Yesenia Baltazar - 01/11/2024 11:19 AM CDT documented in this encounter Plan of Treatment Not on file documented as of this encounter Visit Diagnoses Not on filedocumented in this encounter Care Teams Lower In Supervisor Relationship Specialty Start Date End Date Maximiliano Bullard MD PCP - General 05/04/18 Jace Hernandez MD PhD [address] [place] [address] Radiation Oncologist Radiation Oncology 01/18/21 Diya Croft MD PhD [address] [place] [address] Referring Physician Surgical Oncology 01/18/21 Jaxson Baig MD [address] [place] [address] Consulting Physician Medical Oncology 03/26/21 documented as of this encounter
--- OUTSIDE RECORDS SUMMARY | 2024-11-22 09:26 | XMS_ITS | Clinical Summary ---
Author Organization [facility] Address [facility] [place] [address] Care Team Providers Care Window Covering Sales Consultant Name Role Phone Maximiliano Bullard MD Primary Care Provider + Jace Hernandez MD PhD Unavailable [phone] Diya Croft MD PhD Unavaila ble Jaxson Baig MD Unavailable [phone] Allergies Active Allergy Reactions Criticality Noted Date Comments [place] Rash Medium 03/07/2016 Ciprofloxacin Anaphylaxis,Other (See comments) High 04/26/2016 Swallowing problems.Throat closing up. Other reaction(s): Other (See Comments) Swallowing problems.Throat closing up. Other reaction(s): Other (See comments) Swallowing problems.Throat closing up. Coconut Rash Medium 03/07/2016 Coconut Oil Rash Medium 03/07/2016 Coconut Oil, Hydrogenated Rash Medium 03/07/2016 Doxycycline Rash Medium 03/29/2022 Loratadine Anaphylaxis,Angioede m a High 12/22/2016 Penicillins Rash,Anaphylaxis High 03/07/2016 Patient states Raised rash only/ moderate immediate reaction, pcn allergy form filled out Patient states Raised rash only/ moderate immediate reaction, pcn allergy form filled out Phentermine Anaphylaxis,Swelling , Nausea only High 01/24/2019 Tongue swelling Throat swelling Other reaction(s): Other (See Comments) Tongue swelling Other reaction(s): Nausea Tongue swelling Other reaction(s): Nausea only Tongue swelling Throat swelling Sulfa (Sulfonamide Antibiotics) Anaphylaxis High 12/14/2020 Other reaction(s): Unknown Sulfamethoxazole-Trimet hoprim Anaphylaxis,Rash High 04/23/2016 Tirzepatide Nausea And Vomiting Low 11/23/2022 Tree Nut Other (See comments) Low 12/14/2020 Itchy throat Other reaction(s): Other (See Comments) Itchy throat [place] Other (See comments) High 01/23/2018 Itchy throat Other reaction(s): Other (See Comments) Itchy throat Wheat Other (See comments) Low 10/03/2018 Itchy throat Other reaction(s): Constipation Other reaction(s): Other (See comments) Itchy throat Medications pantoprazole DR (PROTONIX) 40 mg EC tablet Take 1 tablet (40 mg total) by mouth nightly 10/05/19 21 Active cyclobenzaprine (FLEXERIL) 10 mg tablet Take 1 tablet (10 mg total) by mouth 3 (three) times a day as needed 01/24/20 20 Active famotidine (PEPCID) 20 mg tablet Take 1 tablet (20 mg total) by mouth 2 (two) times a day as needed 05/15/20 20 Active linaCLOtide (LINZESS) 290 mcg capsule Take 1 capsule (290 mcg total) by mouth as needed 04/23/20 19 Active EPINEPHrine 0.3 mg/0.3 mL auto-injection syringe Inject into the muscle as instructed as needed Active CHOLECALCIFEROL, VITAMIN D3, ORAL Take 25 mcg by mouth daily Active cyanocobalamin (Vitamin B-12) 1,000 mcg/mL injection INJECT 1 ML IM EVERY 30 DAYS. 10/02/19 21 Active ALPRAZolam (XANAX) 0.25 mg tablet Take 1 tablet (0.25 mg total) by mouth as needed 03/05/20 21 Active estradioL (VIVELLE-DOT) 0.075 mg/24 hr estradiol 0.075 mg/24 hr semiweekly transdermal patch APPLY 1 PATCH TOPICALLY TWICE A WEEK Active methocarbamoL (ROBAXIN) 750 mg tablet 12/03/19 22 Active BD Luer-Hermilo Syringe 3 mL 25 x 1 1/2 syringe FOR B12 INJECTION MONTHLY. 11/09/19 22 Active traMADoL (ULTRAM) 50 mg tablet Take 1-2 tablets (50-100 mg total) by mouth every 6 (six) hours as needed 12/10/19 Active fluconazole (DIFLUCAN) 150 mg tablet PLEASE SEE ATTACHED FOR DETAILED DIRECTIONS 06/08/20 Active naproxen (NAPROSYN) 500 mg tablet Take 1 tablet (500 mg total) by mouth 2 (two) times a day as needed 07/30/20 Active metFORMIN (GLUCOPHAGE) 500 mg tablet Take 2 tablets (1,000 mg total) by mouth Active phentermine (ADIPEX-P) 37.5 mg tablet Take 1 tablet (37.5 mg total) by mouth daily before breakfast 03/22/20 Active Synthroid 125 mcg tabletIndications: Postablative hypothyroidism Take 1 tablet (125 mcg total) by mouth daily DX:E89.0 90 tablet 3 04/08/20 24 025 Active Active Problems Problem Noted Date Diagnosed [...] from 12/16/2020:Stage IB(pT1a, pN0(sn), cM0, G3, ER-, TX-, HER2-) - Signed by Jace Hernandez MD PhD on 01/18/2021 Chronic back pain 08/14/2020 Gallbladder polyp 01/24/2019 Overview (02/25/2022): 06/14- stable 4mm, symptomatic referred to gen surg 01/13 Vitamin B12 deficiency (non anemic) 01/24/2019 Cervical lymphadenopathy 12/13/2018 Overview (02/25/2022): 12/14 US Constipation 11/21/2018 Obesity (BMI 30.0-34.9) 10/03/2018 Assessment & Plan (07/02/2023 5:47 AM NEUROLOGY PHYSICIAN): Counseled on diet and exercise Wheat allergy [...] taken. Assessment & Plan (07/02/2023 5:46 AM NEUROLOGY PHYSICIAN): Chronic, improving Recent TSH WNL Continue Synthroid [...] taken. Assessment & Plan (10/31/2022 3:48 PM NEUROLOGY PHYSICIAN): Reviewed pt last few thyroid lab results [...] the week, 7 tabs have been taken. Encounters Date Type Department Care Team Description 09/26/2024 3:44 PM NEUROLOGY PHYSICIAN - 09/26/2024 11:59 PM NEUROLOGY PHYSICIAN Hospital [facility] [address] [place] [address] Abnormal glucose Discharge Disposition: Discharge to home or self care 09/04/2024 Telephone [facility] [address] [address] Donny Jacobo MD from Last 3 Months Immunizations Immunization Administration Dates Next Due H1N1 Inj 07/28/2020 Influenza, Quadrivalent, Rec ombinant, Egg Free, Preservative Free, Intramuscular 10/03/2020 Influenza, Quadrivalent, Spl it, Preservative Free, Intramuscular 07/08/2021,08/14/2020 Influenza, Trivalent, IM (MDV) 07/28/2020 Pfizer SARS-CoV-2 Monovalent Vaccination (12+ Yrs) PURPLE 05/09/2021,11/21/2020,10/26/2020 Pneumococcal Polysaccharide PPV23 02/22/2021 Tdap 09/03/2018,10/01/2007 Surgical History Surgery Date Site/Laterality Comments OTHER SURGICAL HISTORY ABNL PAPS, ENDOMETRIOSIS: Hysterectomy SECTION section OTHER SURGICAL HISTORY Hysterectomy, total, removal of both tubes and ovaries SECTION HYSTERECTOMY 08/28/1999 - 08/27/2000 SHOULDER SURGERY Right VARICOSE VEIN SURGERY MASTECTOMY W/ NODES PARTIAL 08/28/2020 - 08/27/2021 Right pT1aN0, ER-/TX-/HER2- COLONOSCOPY BREAST BIOPSY 08/28/1998 - 08/27/1999 Left Breast biopsy BREAST BIOPSY 10/26/2020 Right malignant bx BREAST LUMPECTOMY Left BREAST BIOPSY 07/02/2021 Right US GUIDED BIOPSY LYMPH NODE SUPERFICIAL LEFT 07/02/2021 N/A Medical History Medical History Date Comments Hx Other Medical 2000 ABNL PAPS, ENDO METRIOSIS Gastroesophageal reflux disease GERD Disorder of thyroid Thyroid dise ase Fibrocystic breast Breast cyst Breast cancer, right (HCC) 2020 Spinal headache Fatty liver Hypothyroidism History of radiation therapy 2020 rig ht breast PONV (postoperative nausea and vomiting) Reports relief with scopolamine patch and IV meds in past Family History Medical History Relation Name Comments Asthma Brother Asthma; Other Father IRREG HEARTBEAT ; Breast cancer Maternal Grandmother Cancer -breast; Diabetes type II Maternal Grandmother Kathryn betes -Type 2; Anesthesia problems Mother PONV Thyroid disease Mother Thyroid dise ase; Thyroid disease Sister Thyroid dise ase; Ovarian cancer Neg Hx Thyroid cancer Neg Hx Relation Name Status Comments Brother Father Alive Maternal Grandmother Mother Alive Sister Social History Tobacco Use Types Packs/Day [...] on file Legal Sex Female 2:37 PM NEUROLOGY PHYSICIAN Gender Identity Female 10/24/2022 6:31 AM NEUROLOGY PHYSICIAN Sexual Orientation Straight 01/21/2021 6: 44 AM CDT Obstetrics History Para Term AB IAB SAB Ectopic Multiple Livin g Live Births 2 2 2 Date Outcome GA Total Labor Labor/2nd/3rd Weight Sex Type Anes PTL Guillermina A1 A5 Name Clin Term Term Last Filed Vital Signs Vital Sign Reading Time Taken Comments Blood Pressure 120/82 04/08/2024 2:22 PM CDT Pulse 71 04/08/2024 2:22 PM CDT Temperature 36.5 C (97.7 F) 09/22/2022 3:07 PM NEUROLOGY PHYSICIAN Respiratory Rate 16 04/08/2024 2:22 PM CDT Oxygen Saturation 99% 09/22/2022 3:07 PM NEUROLOGY PHYSICIAN Inhaled Oxygen Concentration - - Weight 88.9 kg (196 lb) 04/08/2024 2:22 PM CDT Height 162.6 cm (5' 4 ) 04/08/2024 2:22 PM CDT Body Mass Index 33.64 04/08/2024 2:22 PM CDT Plan of Treatment Health Maintenance Due Date Last Done Comments Colon Cancer Screening-Colonoscopy 1967 Depression Screening 1967 Hepatitis C Screening 1967 Hepatitis B Screening 1985 Regular Well Visit/Exam 18-64 1985 Covid-19 Vaccine ( season) 2024 09/08/2023, 05/09/2021, 11/21/2020, Additional history exists Breast Cancer Screening-Mammogram 07/22/2025 07/22/2024, 07/17/2023, 07/17/2023, Additional history exists DTaP/Tdap/Td Vaccine (3 - Td or Tdap) 09/03/2028 09/03/2018, 10/01/2007 Pneumococcal vaccine <65 Aged Out 02/22/2021 No longer eligible based on patient's age to complete this topic Zoster Vaccine Completed 10/09/2023, 09/08/2023 Influenza Vaccine Completed 09/16/2024, , 05/16/2022, Additional history exists Medical Devices Implanted Type Area Roll Table Operator Device Identifier Shelf Expiration Date Model / Serial / Lot FRAMED [id number] Mammomark Cormark Tissue Bowtie Marker Breast Biopsy Collagen - [id number] - [id number] Implanted:Qty: 1 on 10/26/2020 by Douglas Hanley MD at [facility] Breast Right: Breast [employer] 11/23/2021 [id number] / [id number] / Bard Peripheral Vascular [id number] Ultraclip Bard 17ga 10cm 2 Trigger Permanent Ultrasound - [id number] - [id number] Implanted:Qty: 1 on 07/02/2021 by Maximiliano Martinez MD at [facility] Breast Right: Breast [employer] 12/24/2023 [id number] / [id number] / Description:Implanted Right Breast at 9:00 area 3 cmfn [employer]ipheral [employer] [id number] Ultraclip Bard 17ga 10cm 2 Trigger Permanent Ultrasound - [id number] - [id number] Implanted:Qty: 1 on 07/02/2021 by Maximiliano Martinez MD at [facility] Breast Right: Axilla [employer] 02/23/2024 [id number] / [id number] / Description:Implanted Right Axillary Lymph Node [employer] [id number] [place] 20ga 5cm Reposition J Curve Wire Centimeter Constantino Stabilizer - [id number] Implanted:Qty: 1 on 08/02/2021 at [facility] [employer] [id number] 10/10/2024 [id number] / / [id number] Procedures Procedure Name Priority Date/Time Associated Diagnosis Comments CT HEART CALCIUM Schedule Routine, Read Routine (OP Routine) 09/26/2024 3:58 PM NEUROLOGY PHYSICIAN Abnormal glucose T4, FREE Routine 08/31/2024 7:25 AM NEUROLOGY PHYSICIAN Postablative hypothyroidism TSH Routine 08/31/2024 7:25 AM NEUROLOGY PHYSICIAN Postablative hypothyroidism DIAGNOSTIC MAMMOGRAM BILATERAL W MISAEL Schedule Routine, Read Routine (OP Routine) 07/22/2024 10:14 AM NEUROLOGY PHYSICIAN Breast pain, right from Last 3 Months or Most Recently Relevant to Health Maintenance Results * CT Coronary Calcium Scoring (09/26/2024 3:58 PM NEUROLOGY PHYSICIAN) Anatomical Region Laterality Modality Chest Computed Tomogra phy 09/27/2024 7:52 AM NEUROLOGY PHYSICIAN Narrative 09/27/2024 7:59 AM NEUROLOGY PHYSICIAN EXAM DESCRIPTION: CT CORONARY CALCIUM SCORING REASON FOR STUDY: abnormal glucose Patient complains of having one episode of chest pain and arm numbness, with a family history of heart disease mother and grandmother TECHNIQUE: CT scan of the chest utilizing ECG gating and performed without intravenous and without oral contrast using helical scanning technique. Images reviewed with lung, soft tissue and bone windows. Coronary calcium scoring images were reviewed. All images stored on PACS. Automated exposure control was used as a dose optimization technique for this examination. COMPARISON: 04/21/2022 FINDINGS: The sensitivity for detection of solid visceral lesions is diminished without the use of intravenous contrast. Axial images through the level of the heart only for the purposes obtaining a coronary calcium score. Findings made within these confines: CALCIUM SCORE: Total score: 0 Left main: 0 Left anterior descendin Circumflex: 0 Right coronary artery and Posterior descendin CHEST: HARDWARE/LINES/TUBES: None. VASCULATURE: No visualized aortic aneurysm. MEDIASTINUM: Heart size within normal limits. Esophagus is unremarkable. LYMPH NODES: No pathologically enlarged thoracic lymphadenopathy. AIRWAY: Patent where imaged. LUNGS: No focal consolidation. No pneumothorax. No pleural effusion. No pulmonary edema. UPPER ABDOMEN: No acute abnormality of the visualized abdomen. BONES/SOFT TISSUES: Postsurgical changes of the right lateral breast. Masslike soft tissue of the subareolar breast measuring 3.5 x 2.5 cm decreased when compared to 04/21/2022 and 12/09/2021. Overlying skin thickening of the right breast. No aggressive appearing osseous lesions. No acute osseous abnormality. OTHER: No other significant abnormality. IMPRESSION: No evidence of calcified coronary disease (Score <1). Postsurgical changes of the right breast with persistent masslike soft tissue and overlying skin thickening. Recommend correlation surgical/treatment history and mammograms. REFERENCE: Coronary calcium scoring should be interpreted in the context of the overall patient including other cardiac risk factors. Consider further evaluation if multi-vessel or left-main predominant disease is present. Coronary calcium scoring is for screening asymptomatic patients, symptomatic patients require prompt evaluation. Calcium Score 0: Does not imply complete absence of coronary artery disease as non-calcified plaques may be present, but these patients may require less aggressive medical/lipid targets. Typically, does not warrant further imaging evaluation. Calcium score>0: Recommend further clinical evaluation and consider lipid/medical therapy. Scores >100 are at higher risk and therapy should be more strongly considered. Scores greater than 300 may require more aggressive medical targets/therapy and evaluation. King Salazar, Genesis Hall, Destinee Aguilera. Coronary Artery Calcium Score as a Graded Decision Tool. JACC Adv. 2022, 2 (9) . Velvet Sol. Nestor, Phill. Martha, et al. 2018 AHA/ACC/AACVPR/AAPA/ABC/ACPM/ADA/AGS/APhA/ASPC/NLA/PCNA guideline on the management of blood cholesterol: a report of the [place] College [employer]/[place] Heart Association Task Force on Clinical Practice Guidelines. J Am Tatyana Cardiol, 73 (24) (2019), pp. q930-m744 THIS IS AN ELECTRONICALLY VERIFIED FINAL REPORT 09/27/2024 7:59 AM - Electronically signed by Melchor CONTE T: Report ID: [id number] Reading Location: [place] [address] Procedure Note Melchor Grier MD - 09/27/2024 EXAM DESCRIPTION: CT CORONARY CALCIUM SCORING REASON FOR STUDY: abnormal glucose Patient complains of having one episode of chest pain and arm numbness, with a family history of heartdisease mother and grandmother TECHNIQUE: CT scan of the chest utilizing ECG gating and performed without intravenous and without oral contrast using helical scanning technique. Images reviewed with lung, soft tissue and bone windows. Coronary calcium scoring images were reviewed. All images stored on PACS. Automatedexposure control was used as a dose optimization technique for this examination. COMPARISON: 04/21/2022 FINDINGS: The sensitivity for detection of solid visceral lesions is diminished without the use of intravenous contrast. Axial images throughthe level of the heart only for the purposes obtaining a coronary calciumscore. Findings made within these confines: CALCIUM SCORE: Total score: 0 Left main: 0 Left anterior descendin Circumflex: 0 Right coronary artery and Posterior descendin CHEST: HARDWARE/LINES/TUBES: None. VASCULATURE: No visualized aortic aneurysm. MEDIASTINUM: Heart size within normal limits. Esophagus is unremarkable. LYMPH NODES: No pathologically enlarged thoracic lymphadenopathy. AIRWAY: Patent where imaged. LUNGS: No focal consolidation. No pneumothorax. No pleural effusion. No pulmonary edema. UPPER ABDOMEN: No acute abnormality of the visualized abdomen. BONES/SOFT TISSUES: Postsurgical changes of the right lateral breast. Masslike soft tissue of the subareolar breast measuring 3.5 x 2.5 cmdecreased when compared to 04/21/2022 and 12/09/2021. Overlying skin thickening ofthe right breast. No aggressive appearing osseous lesions. No acute osseous abnormality. OTHER: No other significant abnormality. IMPRESSION: No evidence of calcified coronary disease (Score <1). Postsurgical changes of the right breast with persistent masslike softtissue and overlying skin thickening. Recommend correlation surgical/treatment history and mammograms. REFERENCE: Coronary calcium scoring should be interpreted in the contextof the overall patient including other cardiac risk factors. Consider further evaluation if multi-vessel or left-main predominant disease is present. Coronary calcium scoring is for screening asymptomatic patients,symptomatic patients require prompt evaluation. Calcium Score 0: Does not imply complete absence of coronary arterydisease as non-calcified plaques may be present, but these patients may require less aggressive medical/lipid targets. Typically, does not warrant furtherimaging evaluation. Calcium score>0: Recommend further clinical evaluation and consider lipid/medical therapy. Scores >100 are at higher risk and therapy shouldbe more strongly considered. Scores greater than 300 may require moreaggressive medical targets/therapy and evaluation. Marie, S, Isabel, R, Destinee Aguilera. Coronary Artery Calcium Score as aGraded Decision Tool. JACC Adv. 2022, 2 (9) . Cheli Sol, Carline Thomas, et al. 2018 AHA/ACC/AACVPR/AAPA/ABC/ACPM/ADA/AGS/APhA/ASPC/NLA/PCNA guideline on the management of blood cholesterol: a report of the [place] [employer]/[place] Heart Association Task Force on Clinical Practice Guidelines. J Am Tatyana Cardiol, 73 24) (2019), pp. e670-i587 THIS IS AN ELECTRONICALLY VERIFIED FINAL REPORT 09/27/2024 7:59 AM - Electronically signed by Melchor Grier M.D. NS T: Report ID: [id number] Reading Location: [place] [address] us Maximiliano Bullard MD IMG CT PROCEDURES Final Result * (ABNORMAL) TSH (08/31/2024 7:25 AM NEUROLOGY PHYSICIAN) TSH 6.38(H) 0.40 - 4.50 mIU/L [facility] Blood 08/31/2024 7:25 AM NEUROLOGY PHYSICIAN 08/31/2024 7:25 AM NEUROLOGY PHYSICIAN Donny Keane MD LAB BLOOD ORDERABLE S Final Result Performing Organization Address City/[facility]/ZIP Co de Phone Number QUE[facility] [address] [place] [address] * T4, free (08/31/2024 7:25 AM NEUROLOGY PHYSICIAN) Free T4 1.1 0.8 - 1.8 ng/dL [facility] Blood 08/31/2024 7:25 AM NEUROLOGY PHYSICIAN 08/31/2024 7:25 AM NEUROLOGY PHYSICIAN Donny Keane MD LAB BLOOD ORDERABLE S Final Result Performing Organization Address City/[facility]/ZIP Co de Phone Number [facility] [address] [place] [address] * Diagnostic Mammogram Bilateral W Misael (07/22/2024 10:14 AM NEUROLOGY PHYSICIAN) Anatomical Region Laterality Modality Breast Bilateral Mammography 07/22/2024 11:3 6 AM NEUROLOGY PHYSICIAN Impressions 07/22/2024 11:36 AM NEUROLOGY PHYSICIAN There is no mammographic evidence of malignancy. The patient may continue screening mammography as per ACR guidelines. FINAL ASSESSMENT: BI-RADS 2 - Benign Findings Electronically signed by: Dulce Lazcano M.D. Narrative 07/22/2024 11:36 AM NEUROLOGY PHYSICIAN EXAMINATION: BILATERAL DIGITAL DIAGNOSTIC MAMMOGRAM INCLUDING CAD AND BILATERAL DIGITAL BREAST TOMOSYNTHESIS HISTORY: Follow-up right lumpectomy COMPARISON: Studies dating back to 2020. TECHNIQUE: Full field digital mammographic views of BOTH breasts were performed, including computer aided detection (CAD) and BILATERAL digital breast tomosynthesis (DBT). BREAST PARENCHYMAL COMPOSITION: The breasts are heterogeneously dense, which may obscure small masses. FINDINGS: There are postsurgical changes in the lumpectomy/partial mastectomy bed. Postoperative changes from previous benign surgical biopsy on the left. There are no suspicious masses. No suspicious calcifications are seen. There is no unexpected architectural distortion. There is no skin thickening seen. There are no mammographically abnormal lymph nodes seen in the axillae or elsewhere. Result [facility] Judit Casanova MD IMG MAMMO PROCEDURES Fin al Result from Last 3 Months or Most Recently Relevant to Health Maintenance Insurance [employer] O[employer] [facility] [place] [id number] Care Teams Window Covering Sales Consultant Relationship Specialty Start Date End Date Maximiliano Bullard MD PCP - General 05/04/18 Jace Hernandez MD PhD [address] [place] [id number] Radiation Oncologist Radiation Oncology 01/18/21 Diya Croft MD PhD [address] [place] [id number] Referring Physician Surgical Oncology 01/18/21 Jaxson Baig MD [address] [place] [address] Consulting Physician Medical Oncology 03/26/21
--- OUTSIDE RECORDS SUMMARY | 2024-11-22 09:26 | XMS_ITS | Encounter Summary ---
Author Organization [facility] Address [address] [place] [address] Phone Care Team Providers Care Eap Consultant Name Role Phone Maximiliano Bullard MD Primary Care Provider [phone] Danyell Goldberg APRN, CONVEYOR LINE BATTERY CHARGER Unavailable Encounter Details Date Type Department Care Team (Latest Contact Info) Description 04/09/2020 Transcribe Orders [facility] Admitting [address] [place] [address] Maximiliano Bullard MD [address] [place] [phone] Vitamin D deficiency (Primary Dx); Encounter for routine adult health examination with abnormal findings Social History Tobacco Use Types Packs/Day Years [...] 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 No / Unsure 04/10/2020 7:42 AM CDT documented as of this encounter Plan of Treatment Upcoming Encounters Date Type Department Care Team (Late st Contact Info) Description 07/30/2025 2:00 PM WOUND CARE SPECIALIST Office Visit [facility] Oncology Services [address] [place] [address] Héctor Casanova MD [address] [place] [address] Discharge Disposition: Discharged to home or Selfcare documented as of this encounter Results * (ABNORMAL) CMP (COMPREHENSIVE METABOLIC PANEL) (04/10/2020 8:02 AM CDT) SODIUM 135(L) 136 - 144 mmol/L 04/10/2020 10:31 AM CDT [facility] POTASSIUM 4.6 3.5 - 5.1 mmol/L 04/10/2020 10:31 AM CDT [facility] CHLORIDE 101 100 - 110 mmol/L 04/10/2020 10:31 AM CDT [facility] CO2, VENOUS 26 22 - 32 mmol/L 04/10/2020 10:31 AM CDT [facility] ANION GAP 12.6 8.0 - 20.0 mmol/L 04/10/2020 10:31 AM CDT [facility] GLUCOSE 102(H) 70 - 99 mg/dL 04/10/2020 10:31 AM CDT [facility] BUN 17 6 - 20 mg/dL 04/10/2020 10:31 AM CDT [facility] CREATININE, BLOOD 0.68 0.60 - 1.10 mg/dL 04/10/2020 10:31 AM CDT [facility] BUN/CREATININE RATIO 25(H) 12 - 20 ratio 04/10/2020 10:31 AM CDT [facility] TOTAL PROTEIN 7.2 6.0 - 8.3 g/dL 04/10/2020 10:31 AM CDT [facility] ALBUMIN 4.2 3.5 - 5.2 g/dL 04/10/2020 10:31 AM CDT [facility] Comment: The colormetric methods used for the determination of Albumin may lead to falsely elevated test results in patients suffering from renal failure or insufficiency due to interference with other proteins. A/G RATIO 1.4 1.0 - 2.0 04/10/2020 10:31 AM CDT [facility] CALCIUM 9.9 8.9 - 10.3 mg/dL 04/10/2020 10:31 AM CDT [facility] T BILI 0.4 <=1.2 mg/dL 04/10/2020 10:31 AM CDT [facility] SGOT (AST) 37(H) <=32 U/L 04/10/2020 10:31 AM CDT [facility] Comment: Hemolysis present: results may be falsely elevated. SGPT (ALT) 39(H) <=33 U/L 04/10/2020 10:31 AM CDT [facility] Comment: Hemolysis present: results may be falsely elevated. ALKALINE PHOSPHATASE 97 35 - 105 U/L 04/10/2020 10:31 AM CDT [facility] GFR, EST. NONAFRICAN >60 >=60 04/10/2020 10:31 AM CDT [facility] GFR, EST. >60 >=60 020 10:31 AM CDT [facility] Comment: Creatinine Clearance is the preferred criteria for selecting drug dose adjustments in renally impaired patients. The GFR is provided as additional pertinent clinical information. GFR is reported in mL/min/1.73 sq m. Blood Venipuncture / Unknown 04/10/2020 8:02 AM CDT 04/10/2020 9:23 AM CDT us Maximiliano Bullard MD CHEMISTRY ORDERABLES Final Re sult [facility] [address] [place] [address] * (ABNORMAL) THYROID STIMULATING HORMONE (TSH) (04/10/2020 8:02 AM CDT) TSH 0.199(L) 0.270 - 4.200 mIU/L 04/10/2020 10:31 AM CDT [facility] Blood Venipuncture / Unknown 04/10/2020 8:02 AM CDT 04/10/2020 9:23 AM CDT us Maximiliano Bullard MD CHEMISTRY ORDERABLES Final Re sult [facility] [address] [place] [address] * VITAMIN D, 25 HYDROXY TOTAL (04/10/2020 8:02 AM CDT) VITAMIN D, 25 HYDROX 53 >=30 ng/mL 04/10/2020 10:49 AM CDT [facility] Comment:Hemolysis present: r esults may be falsely elevated. Blood Venipuncture / Unknown 04/10/2020 8:02 AM CDT 04/10/2020 9:23 AM CDT Narrative [facility] - 04/10/2020 10:49 AM CDT Published reference ranges for Vitamin D vary depending on time and place and method of testing, and on patient's age, sex, ethnicity and levels of other measured analytes such as parathormone, calcium and phosphorus. The result should be evaluated in conjunction with clinical findings and suspicions. [place] [employer] and Endocrine Clinical Practice Guidelines: Status Vitamin D levels (ng/mL) Deficient <=20 At risk of inadequacy 21-29 Sufficient 30-100 Centers of Disease Control and Prevention Guidelines: Status Vitamin D levels (ng/mL) Deficient <13 At risk of inadequacy 13-19 Sufficient 20-50 Possibly harmful >50 References: [place] [employer], 2010 Dietary reference intakes for calcium and vitamin D. [place]: The National Academies Press. Malia M, Salty N, Jorge DÍAZ, et al., Evaluation, treatment, and prevention of Vitamin D deficiency: an Endocrinology Clinical Practice Guideline. JCEM 2011 96: 7 9493-4815. Clark A, Willis C, Ravinder D, et al., Vitamin D Status: [place], 8015-2504, [facility] data brief, no. 59, MD Rebecca: National Center for Health Statistics. 2011. us Maximiliano Bullard MD CHEMISTRY ORDERABLES Final Re sult [facility] [address] [place] [address] documented in this encounter Visit Diagnoses Diagnosis Vitamin D deficiency- Primary Unspecified vitamin D deficiency Encounter for routine adult health examination with abnormal findings documented in this encounter Additional Health Concerns Infection Onset Date Last Indicated Resolved Time COVID - 19 09/03/2020 09/03/2020 09/05/2020 8:52 AM WOUND CARE SPECIALIST documented as of this encounter Care Teams Eap Consultant Relationship Specialty Start Date End Date Maximiliano Bullard MD [address] [place] [phone] PCP - General 04/21/16 Danyell Goldberg APRN, CONVEYOR LINE BATTERY CHARGER [address] [place] [address] Nurse Practitioner Advanced Practice Nurse 12/05/22 documented as of this encounter
--- OUTSIDE RECORDS SUMMARY | 2024-11-22 09:26 | XMS_ITS | Referral Summary ---
Author Organization [facility] Address [address] [place] [address] Care Team Providers Care Forest Nursery Worker Name Role Phone Maximiliano Bullard MD Primary Care Provider + Jace Hernandez MD PhD Unavailable Diya Croft MD PhD Unavaila ble Jaxson Baig MD Unavailable Encounters Date Type Department Care Team Description 09/26/2024 3:44 PM CHEMICAL ENGINEERING TEACHER - 09/26/2024 11:59 PM CHEMICAL ENGINEERING TEACHER Hospital En[facility] [place] [address] [place] [address] Abnormal glucose Discharge Disposition: Discharge to home or self care 09/04/2024 Telephone [facility] [place] [place] [facility] of [address] [address] Donny Jacobo MD from Last 3 Months Allergies Active Allergy Reactions Criticality Noted Date Comments [place] Rash Medium 03/07/2016 Ciprofloxacin Anaphylaxis,Other (See comments) High 04/26/2016 Swallowing problems.Throat closing up. Other reaction(s): Other (See Comments) Swallowing problems.Throat closing up. Other reaction(s): Other (See comments) Swallowing problems.Throat closing up. Coconut Rash Medium 03/07/2016 Coconut Oil Rash Medium 03/07/2016 Coconut Oil, Hydrogenated Rash Medium 03/07/2016 Doxycycline Rash Medium 03/29/2022 Loratadine Anaphylaxis,Angioede nadeem méndez High 12/22/2016 Penicillins Rash,Anaphylaxis High 03/07/2016 Patient [...] Other reaction(s): Other (See Comments) Itchy throat [place] Other (See comments) High 01/23/2018 Itchy throat [...] 1/2 syringe FOR B12 INJECTION MONTHLY. 11/09/19 Active traMADoL (ULTRAM) 50 mg tablet Take [...] from 12/16/2020:Stage IB(pT1a, pN0(sn), cM0, G3, ER-, SC-, HER2-) - Signed by Jace Hernandez MD PhD on 01/18/2021 Chronic back pain 08/14/2020 Gallbladder polyp 01/24/2019 Overview (02/25/2022): 06/14- stable 4mm, symptomatic referred to gen surg 01/13 Vitamin B12 deficiency (non anemic) 01/24/2019 Cervical lymphadenopathy 12/13/2018 Overview (02/25/2022): 12/14 US Constipation 11/21/2018 Obesity (BMI 30.0-34.9) 10/03/2018 Assessment & Plan (07/02/2023 5:47 AM CHEMICAL ENGINEERING TEACHER): Counseled on diet and exercise Wheat allergy [...] taken. Assessment & Plan (07/02/2023 5:46 AM CHEMICAL ENGINEERING TEACHER): Chronic, improving Recent TSH WNL Continue Synthroid [...] taken. Assessment & Plan (10/31/2022 3:48 PM CHEMICAL ENGINEERING TEACHER): Reviewed pt last few thyroid lab results [...] the week, 7 tabs have been taken. Immunizations Immunization Administration Dates Next Due H1N1 Inj 07/28/2020 Influenza, Quadrivalent, Rec ombinant, Egg Free, Preservative Free, Intramuscular 10/03/2020 Influenza, Quadrivalent, Spl it, Preservative Free, Intramuscular 07/08/2021,08/14/2020 Influenza, Trivalent, IM (MDV) 07/28/2020 Pfizer SARS-CoV-2 Monovalent Vaccination (12+ Yrs) PURPLE 05/09/2021,11/21/2020,10/26/2020 Pneumococcal Polysaccharide PPV23 02/22/2021 Tdap 09/03/2018,10/01/2007 Social History Tobacco Use Types Packs/Day Years [...] on file Legal Sex Female 2:37 PM CHEMICAL ENGINEERING TEACHER Gender Identity Female 10/24/2022 6:31 AM CHEMICAL ENGINEERING TEACHER Sexual Orientation Straight 01/21/2021 6: 44 AM CDT Last Filed Vital Signs Vital Sign Reading Time Taken Comments Blood Pressure 120/82 04/08/2024 2:22 PM CDT Pulse 71 04/08/2024 2:22 PM CDT Temperature 36.5 C (97.7 F) 09/22/2022 3:07 PM CHEMICAL ENGINEERING TEACHER Respiratory Rate 16 04/08/2024 2:22 PM CDT Oxygen Saturation 99% 09/22/2022 3:07 PM CHEMICAL ENGINEERING TEACHER Inhaled Oxygen Concentration - - Weight 88.9 kg (196 lb) 04/08/2024 2:22 PM CDT Height 162.6 cm (5' 4 ) 04/08/2024 2:22 PM CDT Body Mass Index 33.64 04/08/2024 2:22 PM CDT Plan of Treatment Not on file Medical Devices Implanted Type Area Apprentice Machinist Outside Device Identifier Shelf Expiration Date Model / Serial / Lot [employer] [id number] Mammomark Cormark Tissue Bowtie Marker Breast Biopsy Collagen - [id number] - [id number] Implanted:Qty: 1 on 10/26/2020 by Douglas Hanley MD at [facility] Breast Right: Breast basestoner [employer] 11/23/2021 [id number] / [id number] / Bard Peripheral Vascular [id number] Ultraclip Bard 17ga 10cm 2 Trigger Permanent Ultrasound - [id number] Implanted:Qty: 1 on 07/02/2021 by Maximiliano Martinez MD at [facility] Breast Right: Breast Bard Peripheral Vascular 12/24/2023 [id number] / [id number] / Description:Implanted Right Breast at 9:00 area 3 cmfn Bard Peripheral Vascular [id number] Ultraclip Bard 17ga 10cm 2 Trigger Permanent Ultrasound - [id number]) [id number] Implanted:Qty: 1 on 07/02/2021 by Maximiliano Martinez MD at [facility] Breast Right: Axilla Bard Peripheral Vascular 02/23/2024 [id number] / [id number] / Description:Implanted Right Axillary Lymph Node Line [employer] [id number] Aleppo 20ga 5cm Reposition J Curve Wire Centimeter Constantino Stabilizer - [id number] Implanted:Qty: 1 on 08/02/2021 at [facility] Line [employer] [id number] 10/10/2024 [id number] / / [id number] Procedures Procedure Name Priority Date/Time Associated Diagnosis Comments CT HEART CALCIUM Schedule Routine, Read Routine (OP Routine) 09/26/2024 3:58 PM CHEMICAL ENGINEERING TEACHER Abnormal glucose T4, FREE Routine 08/31/2024 7:25 AM CHEMICAL ENGINEERING TEACHER Postablative hypothyroidism TSH Routine 08/31/2024 7:25 AM CHEMICAL ENGINEERING TEACHER Postablative hypothyroidism DIAGNOSTIC MAMMOGRAM BILATERAL W MISAEL Schedule Routine, Read Routine (OP Routine) 07/22/2024 10:14 AM CHEMICAL ENGINEERING TEACHER Breast pain, right from Last 3 Months or Most Recently Relevant to Health Maintenance Results * CT Coronary Calcium Scoring (09/26/2024 3:58 PM CHEMICAL ENGINEERING TEACHER) Anatomical Region Laterality Modality Chest Computed Tomogra phy 09/27/2024 7:52 AM CHEMICAL ENGINEERING TEACHER Narrative 09/27/2024 7:59 AM CHEMICAL ENGINEERING TEACHER EXAM DESCRIPTION: CT CORONARY CALCIUM SCORING REASON [...] aggressive medical targets/therapy and evaluation. King Salazar, Isabel R, Destinee Aguilera. Coronary Artery Calcium Score as a Graded Decision Tool. JACC Adv. 2022 Nov, 2 (9) . Cheli Sol, Carline Thomas, et al. 2018 AHA/ACC/AACVPR/AAPA/ABC/ACPM/ADA/AGS/APhA/ASPC/NLA/PCNA guideline on the management of blood cholesterol: a report of the [place] College of Cardiology/[place] Heart Association Task Force on Clinical Practice Guidelines. J Am Tatyana Cardiol, 73 (24) (2019), pp. f623-a689 THIS IS AN ELECTRONICALLY VERIFIED FINAL REPORT 09/27/2024 7:59 AM - Electronically signed by Melchor Grier M.D. NS T: Report ID: [id number] Reading Location: [id number] Procedure Note Melchor Grier MD - 09/27/2024 [...] may require moreaggressive medical targets/therapy and evaluation. King Salazar, Genesis Hall, Destinee Aguilera. Coronary Artery Calcium Score as aGraded Decision Tool. JACC Adv. 2022, 2 (9) . Velvet Sol. Phill Baez. Martha et al. 2018 AHA/ACC/AACVPR/AAPA/ABC/ACPM/ADA/AGS/APhA/ASPC/NLA/PCNA guideline on the management of blood cholesterol: a report of the [place] College of Cardiology/[place] Heart Association Task Force on Clinical Practice Guidelines. J Am Tatyana Cardiol, 73 (24) (2019), pp. o498-q685 THIS IS AN ELECTRONICALLY VERIFIED FINAL REPORT 09/27/2024 7:59 AM - Electronically signed by Melchor Grier M.D. NS T: Report ID: [id number] Reading Location: [id number] us Maximiliano Bullard MD IMG CT PROCEDURES Final Result * (ABNORMAL) TSH (08/31/2024 7:25 AM CHEMICAL ENGINEERING TEACHER) TSH 6.38(H) 0.40 - 4.50 mIU/L [facility] Blood 08/31/2024 7:25 AM CHEMICAL ENGINEERING TEACHER 08/31/2024 7:25 AM CHEMICAL ENGINEERING TEACHER us Donny Keane MD LAB BLOOD ORDERABLE S Final Result Performing Organization Address [facility] Co de Phone Number QUEST [facility] [address] [place] [address] * T4, free (08/31/2024 7:25 AM CHEMICAL ENGINEERING TEACHER) Free T4 1.1 0.8 - 1.8 ng/dL [facility] Blood 08/31/2024 7:25 AM CHEMICAL ENGINEERING TEACHER 08/31/2024 7:25 AM CHEMICAL ENGINEERING TEACHER Donny Keane MD LAB BLOOD ORDERABLE S Final Result Performing Organization Address [facility] de Phone Number QUEST [facility] [address] [place] [address] * Diagnostic Mammogram Bilateral W Misael (07/22/2024 10:14 AM CHEMICAL ENGINEERING TEACHER) Anatomical Region Laterality Modality Breast Bilateral Mammography 07/22/2024 11:3 6 AM CHEMICAL ENGINEERING TEACHER Impressions 07/22/2024 11:36 AM CHEMICAL ENGINEERING TEACHER There is no mammographic evidence of malignancy. The patient may continue screening mammography as per ACR guidelines. FINAL ASSESSMENT: BI-RADS 2 - Benign Findings Electronically signed by: Dulce Lazcano M.D. Narrative 07/22/2024 11:36 AM CHEMICAL ENGINEERING TEACHER EXAMINATION: BILATERAL DIGITAL DIAGNOSTIC MAMMOGRAM INCLUDING CAD [...] nodes seen in the axillae or elsewhere. Héctor Judit Casanova MD IMG MAMMO PROCEDURES Fin al Result from Last 3 Months or Most Recently Relevant to Health Maintenance Insurance [employer] [address] [address] [place] [id number] Care Teams Forest Nursery Worker Relationship Specialty Start Date End Date Maximiliano Bullard MD PCP - General 05/04/18 Jace Hernandez MD PhD [address] [place] [address] Radiation Oncologist Radiation Oncology 01/18/21 Diya Croft MD PhD [address] [place] [address] Referring Physician Surgical Oncology 01/18/21 Jaxson Baig MD [address] [place] [address] Consulting Physician Medical Oncology 03/26/21
--- OUTSIDE RECORDS SUMMARY | 2024-11-22 09:27 | XMS_ITS ---
Author Organization [facility] Address [address] [place] [address] Phone Care Team Providers Care Sales Supervisor Name Role Phone Unavailable Unavailable Unavailable Plan [...]
--- OUTSIDE RECORDS SUMMARY | 2024-11-22 09:27 | XMS_ITS ---
Care Plan - [facility] Created on: November 22, 2024 TERESITA MURRAY : 1965 Sex: Female Author Organization [facility] Address [address] [place] [address] Phone Care Team Providers Care Bias Machine Operator Helper Name Role Phone Unavailable Unavailable Unavailable
--- OUTSIDE RECORDS SUMMARY | 2024-11-22 09:27 | XMS_ITS | Clinical Summary ---
Author Organization [facility] Address [address] [place] [address] Phone Care Team Providers Care Rewrite Editor Name Role Phone Unavailable Unavailable Unavailable Reason [...] Time Diagnosis NEW PATIENT VISIT [facility] 8 3:30PM 11:59PM Clinical Notes Includes: Clinical Notes from this encounter No Clinical Notes Recorded
== END 2024-11-22 09:40 | disposition home or self-care (01) ==
PROVIDERS: Emergency Provider Nurse Practitioner Family; PCP Internal Medicine
DX: R51.9 Headache, unspecified (principal); Z85.3 Personal history of malignant neoplasm of breast
CPT/HCPCS: 99213; G0463

== ENCOUNTER 2025-01-23 16:57 | Emergency (ER) | payer BC, OTHER, SELFPAY ==
--- OUTSIDE RECORDS SUMMARY | 2025-01-23 16:59 | XMS_ITS | Encounter Summary ---
Author Organization [facility] Address [address] 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 Yes 09/03/2020 4:01 PM RIVET STICKER documented as of this encounter Miscellaneous Notes * Telephone Encounter - Anuj Shepherd CMA - 09/16/2020 8:50 AM RIVET STICKER Pharmacy requesting refill of: Requested Prescriptions Pending Prescriptions Disp Refills ??? Linzess 290 MCG Capsule [Pharmacy Med Name: LINZESS 290 MCG CAPSULE] 30 Cap 0 Sig: TAKE 1 CAP BY MOUTH EVERY MORNING BEFORE BREAKFAST Last fill: 08/17/2020 Patients last OV with GI: 05/14/2020 Next Office Visit with GI: None scheduled T STICKER documented in this encounter Plan of Treatment Upcoming Encounters Date Type Department Care Team (Late st Contact Info) Description 02/11/2025 4:30 PM CDT [facility] [address] [place] [address] Danyell Goldberg APRN, CRUTCHING CONTRACTOR [address] [place] [address] 07/30/2025 2:00 PM RIVET STICKER [facility] [address] [place] [phone] Héctor Casanova MD [address] [place] [address] Discharge Disposition: Discharged to home or Selfcare documented as of this encounter Visit Diagnoses Not on filedocumented in this encounter Care Teams Developmental Therapist Relationship Specialty Start Date End Date Maximiliano Bullard MD [address] [place] [phone] PCP - General 04/21/16 Danyell Goldberg APRN, CRUTCHING CONTRACTOR [address] [place] [address] Nurse Practitioner Advanced Practice Nurse 12/05/22 documented as of this encounter
--- OUTSIDE RECORDS SUMMARY | 2025-01-23 16:59 | XMS_ITS | Encounter Summary ---
Author Organization [facility] Address [address] 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 documented in this encounter Plan of Treatment Upcoming Encounters Date Type Department Care Team (Late st Contact Info) Description 02/11/2025 4:30 PM CDT [facility] [address] [place] [address] Danyell Goldberg APRN, NETWORK CONTROL TECHNICIAN [address] [place] [address] 07/30/2025 2:00 PM CLOTHING MANAGER [facility] [address] [place] [phone] Héctor Casanova MD [address] [place] [address] Discharge Disposition: Discharged to home or Selfcare documented as of this encounter Visit Diagnoses Diagnosis Gastroesophageal reflux disease Esophageal reflux documented in this encounter Care Teams Head Men'S Tennis Coach Relationship Specialty Start Date End Date Maximiliano Bullard MD [address] [place] [phone] PCP - General 04/21/16 Danyell Goldberg APRN, NETWORK CONTROL TECHNICIAN [address] [place] [address] Nurse Practitioner Advanced Practice Nurse 12/05/22 documented as of this encounter
--- OUTSIDE RECORDS SUMMARY | 2025-01-23 16:59 | XMS_ITS | Encounter Summary ---
Author Organization [facility] Address [address] 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 on [...] Description 02/11/2025 4:30 PM CDT Office Visit [facility] [place] [address] [place] [address] Danyell Goldberg APRN, CHANGE ROOM ATTENDANT [address] [place] [address] 07/30/2025 2:00 PM CASINO GAMING WORKER [facility] [address] [place] [address] Héctor Casanova MD [address] [place] [address] Discharge Disposition: Discharged to home or Selfcare documented as of this encounter Visit Diagnoses Diagnosis Gastroesophageal reflux disease Esophageal reflux documented in this encounter Care Teams Tank Car Loader Relationship Specialty Start Date End Date Maximiliano Bullard MD [address] [place] [phone] PCP - General 04/21/16 Danyell Goldberg APRN, CHANGE ROOM ATTENDANT [address] [place] [address] Nurse Practitioner Advanced Practice Nurse 12/05/22 documented as of this encounter
--- OUTSIDE RECORDS SUMMARY | 2025-01-23 16:59 | XMS_ITS | Encounter Summary ---
Author Organization [facility] Address [address] 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 No / Unsure 07/05/2021 8:13 AM ESTIMATOR LUMBER documented as of this encounter Miscellaneous Notes * Telephone Encounter - Mackenzie Arroyo RN - 08/05/2021 9:15 AM ESTIMATOR LUMBER Medication [facility] and [facility] for pediatric and adult patients. MATOR LUMBER * Telephone Encounter - Mackenzie Arroyo RN - 08/05/2021 9:02 AM ESTIMATOR LUMBER Pharmacy requesting refill of: Requested Prescriptions Pending [...] appt scheduled for 09/09/[address] Nicholson. MATOR LUMBER MATOR LUMBER documented in this encounter Plan of Treatment Upcoming Encounters Date Type Department Care Team (Late st Contact Info) Description 02/11/2025 4:30 PM CDT Office Visit [facility] - Gastroenterology [facility] [address] [place] [address] Danyell Goldberg APRN, POULTRY BARN MANAGER [address] [place] [address] 07/30/2025 2:00 PM ESTIMATOR LUMBER Office Visit [facility] Oncology Services [address] [place] [address] Héctor Casanova MD [address] [place] [address] Discharge Disposition: Discharged to home or Selfcare documented as of this encounter Visit Diagnoses Diagnosis Gastroesophageal reflux disease Esophageal reflux documented in this encounter Care Teams Bone Density Technician Relationship Specialty Start Date End Date Maximiliano Bullard MD [address] [place] [phone] PCP - General 04/21/16 Danyell Goldberg APRN, POULTRY BARN MANAGER [address] [place] [address] Nurse Practitioner Advanced Practice Nurse 12/05/22 documented as of this encounter
--- OUTSIDE RECORDS SUMMARY | 2025-01-23 17:00 | XMS_ITS | Encounter Summary ---
Author Organization [facility] Address [address] 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 [address] [place] [address] Danyell Goldberg APRN, NEWS COPY EDITOR [address] [place] [address] 07/30/2025 2:00 PM ALINING INSPECTOR [facility] [address] [place] [phone] Héctor Casanova MD [address] [place] [address] Discharge Disposition: Discharged to home or Selfcare documented as of this encounter Results * (ABNORMAL) CMP (COMPREHENSIVE METABOLIC PANEL) (04/10/2020 8:02 AM CDT) SODIUM 135(L) 136 - 144 mmol/L 04/10/2020 10:31 AM CDT [facility] POTASSIUM 4.6 3.5 - 5.1 mmol/L 04/10/2020 10:31 AM CDT [facility] CHLORIDE 101 100 - 110 mmol/L 04/10/2020 10:31 AM CDT [facility] CO2, VENOUS 26 22 - 32 mmol/L 04/10/2020 10:31 AM CDT [facility] ANION GAP 12.6 8.0 - 20.0 mmol/L 04/10/2020 10:31 AM CDT [facility] GLUCOSE 102(H) 70 - 99 mg/dL 04/10/2020 10:31 AM CDT [facility] BUN 17 6 - 20 mg/dL 04/10/2020 10:31 [facility] CREAT[facility], BLOOD 0.68 0.60 - 1.10 mg/dL 04/10/2020 10:31 AM [facility] BUN/CREATININE RATIO 25(H) 12 - 20 ratio 04/10/2020 10:31 AM [facility] TOTAL PROTEIN 7.2 6.0 - 8.3 g/dL 04/10/2020 10:31 AM [facility] ALBUMIN 4.2 3.5 - 5.2 g/dL 04/10/2020 10:31 AM [facility] Comment: The colormetric methods used for the determination of Albumin may lead to falsely elevated test results in patients suffering from renal failure or insufficiency due to interference with other proteins. A/G RATIO 1.4 1.0 - 2.0 04/10/2020 10:31 AM [facility] CALCIUM 9.9 8.9 - 10.3 mg/dL 04/10/2020 10:31 AM [facility] T BILI 0.4 <=1.2 mg/dL 04/10/2020 10:31 AM [facility] SGOT (AST) 37(H) <=32 U/L 04/10/2020 10:31 AM [facility] Comment: Hemolysis present: results may be falsely elevated. SGPT (ALT) 39(H) <=33 U/L 04/10/2020 10:31 AM [facility] Comment: Hemolysis present: results may be falsely elevated. ALKALINE PHOSPHATASE 97 35 - 105 U/L 04/10/2020 10:31 AM [facility] GFR, EST. NONAFRICAN >60 >=60 04/10/2020 10:31 AM [facility] GFR, EST. >60 >=60 020 10:31 AM [facility] Comment: Creatinine Clearance is the preferred criteria for selecting drug dose adjustments in renally impaired patients. The GFR is provided as additional pertinent clinical information. GFR is reported in mL/min/1.73 sq m. Blood Venipuncture / Unknown 04/10/2020 8:02 AM CDT 04/10/2020 9:23 AM CDT Maximiliano Bullard MD CHEMISTRY ORDERABLES Final Re sult Performing Organization Address City/[facility]/ZIP Co de Phone Number [facility] [address] [place] [address] * (ABNORMAL) THYROID STIMULATING HORMONE (TSH) (04/10/2020 8:02 AM CDT) TSH 0.199(L) 0.270 - 4.200 mIU/L 04/10/2020 10:31 AM CDT [facility] Blood Venipuncture / Unknown 04/10/2020 8:02 AM CDT 04/10/2020 9:23 AM CDT Maximiliano Bullard MD CHEMISTRY ORDERABLES Final Re sult Performing Organization Address City/[facility]/ZIP Co de Phone Number [facility] [address] [place] [address] * VITAMIN D, 25 HYDROXY TOTAL (04/10/2020 [...] in conjunction with clinical findings and suspicions. [employer] Clinical Practice Guidelines: Status Vitamin D levels (ng/mL) Deficient <=20 At risk of inadequacy 21-29 Sufficient 30-100 Centers of Disease Control and Prevention Guidelines: Status Vitamin D levels (ng/mL) Deficient <13 At risk of inadequacy 13-19 Sufficient 20-50 Possibly harmful >50 References: [employer], 2010 Dietary reference intakes for calcium and vitamin D. [place]: The National Academies Press. Malia M, Salty N, Jorge DÍAZ, et al., Evaluation, treatment, and prevention of Vitamin D deficiency: an Endocrinology Clinical Practice Guideline. JCEM 2011 96: 7 7641-2431. Clark A, Willis C, Ravinder D, et al., Vitamin D Status: [place], 1019-2862, [facility] data brief, no. 59, MD Rebecca: [facility] Statistics. 2011. us Maximiliano Bullard MD CHEMISTRY ORDERABLES Final Re sult [facility] [address] [place] [address] documented in this encounter Visit Diagnoses Diagnosis Vitamin D deficiency- Primary Unspecified vitamin D deficiency Encounter for routine adult health examination with abnormal findings documented in this encounter Additional Health Concerns Infection Onset Date Last Indicated Resolved Time COVID - 19 09/03/2020 09/03/2020 09/05/2020 8:52 AM ALINING INSPECTOR documented as of this encounter Care Teams Asphalt Spreader Operator Relationship Specialty Start Date End Date Maximiliano Bullard MD [address] [place] [phone] PCP - General 04/21/16 Danyell Goldberg APRN, NEWS COPY EDITOR [address] [place] [address] Nurse Practitioner Advanced Practice Nurse 12/05/22 documented as of this encounter
--- OUTSIDE RECORDS SUMMARY | 2025-01-23 17:00 | XMS_ITS | Encounter Summary ---
Author Organization [facility] Address [address] [place] [address] Phone Care Team Providers Care Certified Ophthalmic Surgical Assistant Name Role Phone Maximiliano Bullard MD Primary Care Provider + Jace Hernandez MD PhD Unavailable Diya Croft MD PhD Unavaila ble Jaxson Baig MD Unavailable [phone] Encounter Details Date Type Department Care Team (Late st Contact Info) Description 11/03/2020 Telephone [facility] Oncology [facility] Advanced [facility] 7th [place] [address] Faviola Gaston Social History Tobacco Use Types Packs/Day Years Used Date Smoking Tobacco: Never Alcohol Use Standard Drinks/Week Comments Yes 0 (1 standard drink = 0.6 oz pur e alcohol) Comments No Sex and Gender Information Value Date Recorded Sex Assigned at Not on file Legal Sex Female 2:37 PM MECHANICAL PROJECT MANAGER Gender Identity Female 10/24/2022 6:31 AM MECHANICAL PROJECT MANAGER Sexual Orientation Straight 01/21/2021 6: 44 AM CDT documented as of this encounter Plan of Treatment Not on file documented as of this encounter Visit Diagnoses Not on filedocumented in this encounter Additional Health Concerns Infection Onset Date Last Indicated Resolved Time COVID: Suspected 09/10/2021 09/10/2021 09/10/2021 1:32 PM MECHANICAL PROJECT MANAGER COVID: Suspected 09/10/2021 09/10/202109/1109/11/2021 11:37 AM MECHANICAL PROJECT MANAGER documented as of this encounter Care Teams Certified Ophthalmic Surgical Assistant Relationship Specialty Start Date End Date Maximiliano Bullard MD PCP - General 05/04/18 Jace Hernandez MD PhD [address] [place] [address] Radiation Oncologist Radiation Oncology 01/18/21 Diya Croft MD PhD [address] [place] [address] Referring Physician Surgical Oncology 01/18/21 Jaxson Baig MD [address] [place] [address] Consulting Physician Medical Oncology 03/26/21 documented as of this encounter
--- OUTSIDE RECORDS SUMMARY | 2025-01-23 17:00 | XMS_ITS | Data Portability ---
Author Organization [facility] Address [address] [place] [address] Assessment No assessment recorded. Plan of Treatment Reminders Order Date Submit Date Provider Last Modified By Organization Details Last Modified Time Details Appointments None recorde d. Lab bacteri al vaginos is + vaginit is panel, vaginal 2020 [facility], [address] [place] [address], [facility] [address], [place], [address], 07:08:13 pap, IG + HPV 2020 021 [facility], [address] [place] [address], [address], [place], [address], 1 16:11:21 Referral None recorde d. Procedures None recorde d. Surgeries None recorde d. Imaging US, pelvis, transab dominal + transva ginal [address] [facility] Scheduling, 1 [facility] [place], [address], 1 08:46:04 Medication Orders estradi ol 0.075 mg/24 hr semiwee kly transde rmal patch 2023 024 [facility]/Pharmacy #[id number], [address] [place], [address], 4 09:53:52 flucona zole 150 mg tablet 2023 024 [facility]/Pharmacy #[id number], [address] [place], [address], 4 09:53:52 Premari n 0.625 mg/gram vaginal cream 2022 023 [facility]/Pharmacy #[id number], [address] [place], [address], 3 14:37:50 estradi ol 0.075 mg/24 hr semiwee kly transde rmal patch 2019 [facility] [address] [place], [address], 3 16:13:10 venlafa xine ER 75 mg capsule ,extend ed release 24 hr 2018 019 [email or web address] [facility]/Pharmacy #6833, [address] [place], [address], 3 15:53:51 estradi ol 0.075 mg/24 hr semiwee kly transde rmal patch 2018 019 [facility] [address] [place], [address], 3 16:13:10 Patient TargetsNo targets recorded. Patient Instructions Encounter Date Encounter Id Patient Instructions Last Modified By Organization Details Last Modified Time 02/12/2019 [id number] hot flashes during menopause: care instructions deldredsmith Not available 02/12/2019 15:27:35 03/04/2021 [id number] candidiasis: care instructions deldredsmith Not available 03/04/2021 11:05:22 12/01/2022 [id number] A healthy lifestyle: care instructions deldredsmith Not available 12/01/2022 16:13:02 03/15/2024 [id number] vaginal yeast infection: care instructions deldredsmith Not available 03/15/2024 09:53:50 Reason for Referral None Reported. Results Created Date Observation Date Name Description Value Unit Range Abnormal Flag Note LastModifiedBy Organization Detail LastModifiedTime 03/04/20 21 03/06/2021 NUSWA B VAGIN ITIS PLUS (VG+) trich vag by CHANDAN Negati ve negati ve Not Available [facility] ([facility]) [address] [facility], [place], [address], 03/07/2021 07:08:13 03/04/20 21 03/06/2021 NUSWA B VAGIN ITIS PLUS (VG+) chlamydia trachomatis, CHANDAN Negati ve negati ve Not Available [facility] ([facility]) [address] [place], [address], 03/07/2021 07:08:13 03/04/20 21 03/06/2021 NUA B VAGIN ITIS PLUS (VG+) neisseria gonorrhoeae, CHANDAN Negati ve negati ve Not Available [facility] ([facility]) [address] [facility], [place], [address], 03/07/2021 07:08:13 03/04/20 21 03/07/2021 NUA B VAGIN ITIS PLUS (VG+) atopobium vaginae High - 2 score abnormal Not Available [facility] ([facility]) [address] [facility], [place], [address], 03/07/2021 07:08:13 03/04/2003/07/2021 NUA B VAGIN ITIS PLUS (VG+) bvab 2 Low - 0 score Not Available [facility] ([facility]) [address] [place], [address], 03/07/2021 07:08:13 03/04/20 21 03/07/2021 NUA B [...] Drug Admin istra tion. Not Available [facility] ([facility]) [address] [place], [address], 03/07/2021 07:08:13 03/04/2003/07/2021 NUSWA B VAGIN ITIS PLUS (VG+) ramu albicans, CHANDAN Negati ve negati ve Not Available [facility] ([facility]) [address] [place], [address], 03/07/2021 07:08:13 03/04/20 21 03/07/2021 NUSWA B VAGIN ITIS PLUS (VG+) ramu glabrata, CHANDAN Negati ve negati ve Not Available [facility] ([facility]) [address] [place], [address], 03/07/2021 07:08:13 03/04/20 21 03/08/2021 IGP, APTIM A HPV, RFX 16/18 ,45 diagnosis: Commen t NEGAT SAMANTHA FOR INTRA EPITH ELIAL LESIO N OR MALAMADOR ERIC . Not Available [facility] ([facility]) [address] [place], [address], 03/08/2021 16:11:21 03/04/2003/08/2021 IGP, APTIM A HPV, RFX 16/18 ,45 specimen adequacy: Commen t Satis facto ry for evalu ation . No endoc ervic al compo nent is ident ified . Not Available [facility] ([facility]) [address] [place], [address], 03/08/2021 16:11:21 03/04/20 21 03/08/2021 IGP, APTIM A HPV, RFX 16/18 ,45 clinician provided ICD10: Hector pizano Z01.4 19 B37.3 Not Available [facility] ([facility]) [address] [place], [address], 03/08/2021 16:11:21 03/04/20 21 03/08/2021 IGP, APTIM A HPV, RFX 16/18 ,45 performed by: Hector munguia, Sabine pizano (ASCP ) Not Available [facility] ([facility]) [address] [place], [address], 03/08/2021 16:11:21 03/04/20 21 03/08/2021 IGP, APTIM A HPV, RFX 16/18 ,45 . . Not Available [facility] ([facility]) [address] [place], [address], 03/08/2021 16:11:21 03/04/2003/08/2021 IGP, APTIM A HPV, [...] ts do occur . Not Available [facility] ([facility]) [address] [place], [address], 03/08/2021 16:11:21 03/04/20 21 03/08/2021 IGP, APTIM A HPV, RFX 16/18 ,45 test methodology: Commen t This liqui d based ThinP rep(R ) pap test was mae reed with the use of an image guide benjamin silver. Not Available [facility] ([facility]) [address] [facility], [place], [address], 03/08/2021 16:11:21 03/04/20 21 03/08/2021 IGP, APTIM A HPV, RFX 16/18 ,45 HPV aptima Negati ve negati ve This nucle ic acid ampli ficat ion test detec ts fourt een high- risk HPV types (16,1 8,31, 33,35 ,39,4 5,51, 52,56 ,58,5 9,66, 68) witho ut diffe renti ation . Not Available [facility] ([facility]) [address] [facility], [place], [address], 03/08/2021 16:11:21 04/11/20 24 04/12/2024 CULTU RE, URINE , ROUTI NE culture, urine, routine SEE NOTE CULTU RE, URINE , ROUTI NE Micro Numbe r: [id number] Test Statu s: Final Speci men [...] Cultu re Trans port Tube. Not Available [facility] [address], [place], [address], 04/12/2024 19:14:56 07/02/20 19 07/01/2019 MAMMO , mae roseg, digit al, bilat eral No observ ation record ed. [email or web address] , [place], [address], 07/02/2019 09:46:22 10/09/19 21 10/09/2020 MAMMO , scree emily, digit al, bilat eral No observ ation record ed. [facility] Women [address] [facility] [place], [address], 10/09/2020 14:09:13 11/13/19 21 10/26/2020 stere otact ic breas t biops y (PROC ) No observ ation record ed. [address] [place], [address], 11/17/2020 10:27:54 04/12/20 21 04/10/2021 US, pelvi s, trans abdom inal + trans vagin al No observ ation record ed. [facility] [address] [facility] [place], [address], 04/20/2021 12:53:52 03/18/20 24 12/29/2023 MAMMO , diagn ostic , digit al, unila teral No observ ation record ed. [facility] Not Available 14:15:53 03/18/20 24 07/17/2023 MAMMO , scree emily, digit al, bilat eral No observ ation record ed. [facility] Not Available 14:15:54 05/21/20 24 05/18/2024 US, pelvi s, trans abdom inal + trans vagin al No observ ation record ed. MARISA Os ([facility]) Scheduling [address] [facility], [place], [address], 05/21/2024 17:15:55 Result Notes None recorded. Problems Name Problem SNOMED Code Status Onset Date Resolution Date Notes Provider Name and Address Organization Details Recorded Time Chronic back pain 660855978 Active 2019 Franchesca mcgregor, [place] - [facility] 0 11:04:36 Malignant tumor of breast 361789671 Active 2020 LINNETTE Mandel Attn: Accountin g,[address], [place], [address], [facility] 1 10:30:56 Urinary tract infectious disease 77887788 Active Kyle Hodges null, [place] 5 12:20:39 Candidiasis 55986569 Active Kyle Hodges null, [place] 5 12:20:39 Menopausal flushing 025384213 Active 2016 Rasheeda Schmidt null, [place] 7 17:05:43 Problem Notes None recorded. Procedures Surgical History Date Name Laterality Status Provider Name and Address Organization Details Recorded Time 03/04/20 24 Breast Biopsy completed Annemarie Gipson MA [facility] 03/15/2024 09:37:19 03/04/20 21 Date of Last Pap Smear completed Ana Sin RN [facility] 03/09/2021 10:42:39 10/09/19 21 Most Recent Mammogram completed Ana Sin RN [facility] 10/09/2020 09:59:04 08/14/20 20 Date of Last Mammogram completed Franchesca Castillo [facility] 08/14/2020 11:03:48 08/28/19 00 Total hysterectomy completed Teena De Jesus APN, [employer] Attn: Accounting,[address], [place], [address], [facility] 06/27/2023 11:28:35 repair of shoulder completed Franchesca Castillo [facility] 08/14/2020 11:04:27 Imaging Results None recorded. Procedure Notes None recorded. Medical Equipment None Reported. Allergies Allergen ID Allergen Name Allergen Category Reaction Reaction Severity Criticality Documentation Date Start Date Code Code System Note Provider Name and Address Organization Details Recorded Time 17819 Substance with sulfonami de structure and antibacte rial mechanism of action (substanc e) medicatio n Not available Not available Not available 06/14/2016 97939 8003 SNOMED Luba Mejia MA null, [facility] 6 15:42:41 54922 Cipro medicatio n Not available Not available Not available 06/14/201696561 3 RxNorm Luba Mejia MA null, [place] - [facility] 6 15:42:48 87166 Product containin g penicilli n (product) medicatio n Not available Not available Not available 12/19/2016 34485 8001 SNOMED Rasheeda Schmidt null, [place] - [facility] 7 17:03:19 Medications Name Sig Start Date Stop Date [...] transdermal patch APPLY 1 PATCH TWICE WEEKLY 2024 active Not Available Not Available Not Avai [...] TAKE ONE TABLET BY MOUTH IN THE MUTUAL FUNDS AGENT 03/15 completed Not Available Not Available Not [...] Available Not Available Not Available amoxicillin 875 mg-gisela m clavulanate 125 mg tablet 06/14 completed [...] 1 TABLET BY MOUTH DAILY IN THE MUTUAL FUNDS AGENT. 03/15 completed Not Available Not Available Not [...] Updated DateTime 3 170.18 cm 31 kg/m2 78004.8 9 g 67 /min 16 /min 103 mm[Hg] 70 mm[Hg] Franchesca Vargas Jonathan [facility] 3 15:56:08 Date Recorded Body height Body mass index (BMI) Body weight Systolic blood pressure Diastolic blood pressure Provider Name and Address Organization Details Last Updated DateTime 02/12/2019 162.56 cm 33 kg/m2 90131.54 g 126 mm[Hg] 80 mm[Hg] Dayana Mejia MA [facility] 9 15:24:47 Date Recorded Body height Body mass index (BMI) Body weight Systolic blood pressure Diastolic blood pressure Provider Name and Address Organization Details Last Updated DateTime 03/04/2021 170.18 cm 30 kg/m2 41466.54 g 108 mm[Hg] 72 mm[Hg] Dayana Mejia MA [facility] 1 10:08:59 Date Recorded Body height Body mass index (BMI) Body weight Heart rate Systolic blood pressure Diastolic blood pressure Provider Name and Address Organization Details Last Updated DateTime 4 162.56 cm 33.6 kg/m2 29021.7 g 71 /min 108 mm[Hg] 70 mm[Hg] Annemarie villalobos MA [facility] 4 09:31:42 Social History Question Answer Notes LastModified by Organizat ion Details LastModified Time Tobacco Smoking Status Never Smoker Mackenzie mcgregor [facility] 02/10/2015 11:55:58 What Is Your Level Of Caffeine Consumption? Heavy Information not available 02/10/2015 How Much Tobacco Do You Chew? None Information not available 02/10/2015 In The 14 Days Before Symptom Onset, Have You Had Close Contact With A Laboratory-confirm ed COVID-19 While That Case Was Ill? No [email or web address] Information n ot available 12/01/2022 In The 14 Days Before Symptom Onset, Have You Had Close Contact With A Person Who Is Under Investigation For COVID-19 While That Person Was Ill? No [email or web address] Information not available 12/01/2022 Have You Been To An Area Known To Be High Risk For COVID-19? No [email or web address] Information not available 12/01/2022 What Type Of Diet Are You Following? REGULAR Information n ot available 02/10/2015 Live Alone Or With Others? With Others [email or web address] Information not available 08/14/2020 What Was The Date Of Your Most Recent Tobacco Screening? 03/15/2024 [email or web address] Information not available 03/15/2024 How Many Children Do You Have? 2 Information not available 02/10/2015 Performs Monthly Self-breast Exam? Yes [email or web address] Information no t available 08/14/2020 Do You Use Protection During Sex? No [email or web address] Information not available 08/14/2020 What Is Your Relationship Status? [email or web address] Information not available 08/14/2020 Seat Belts Used Routinely Yes [email or web address] Information not available 08/14/2020 Are You Sexually Active? Yes [email or web address] Information not available 08/14/2020 Do You Have Smoke And Carbon Monoxide Detectors In Your Home? Yes Information not available 12/01/2022 Are You Passively Exposed To Smoke? No [email or web address] Information no t available 12/01/2022 How Much Tobacco Do You Smoke? No [email or web address] Information not available 08/14/2020 General Stress Level Medium Information not available 02/10/2015 Do You Use Sunscreen Routinely? Yes [email or web address] Information not available 08/14/2020 Sex: Female Functional Status Question Answer Note LastModified by Organizat ion Details LastModified Time Do you use any illicit or recreational drugs? No [email or web address] Information not available 12/01/2022 Do you or have you ever used any other forms of tobacco or nicotine? No [email or web address] Information not available 12/01/2022 What is your level of alcohol consumption? Occasional Information not available 02/10/2015 Do you or have you ever used smokeless tobacco? Never used smokeless tobacco [email or web address] Information not available 08/14/2020 Are you currently employed? 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 Never used electronic cigarettes [email or web address] Information not available 08/14/2020 What is your exercise level? Moderate Information [...] available 2015 15:56:14 Medical History Condition Response Thyroid Problems Y Kidney or Bladder Problems Y Breast Problem Y Headaches/Migraines Y Acid Reflux (GERD) Y Gynecological History Statement/Question Response Abnormal Pap [...] SNOMED-CT Code Diagnosis ICD10 Code Diagnosis Note [id number] MD Bretrand Camargo ([address]) [address] [place] [address] 02/10/2015 11:35:13 02/10/2015 12:25:13 Urinary tract infectious disease 86155212 patient advised that if culture negative will discontinu e antibiotic and followup with pcp Candidiasis 70314345 [id number] Lauren Treivno [facility] [place] ([address]) [address] [place] [address] 06/14/2016 15:33:13 06/14/2016 16:33:20 Pain of breast 69362628 N64.4 [id number] Lauren Trevino [facility] [place] [facility] ([facility] 122) [address] [facility] [place] [address] 07/06/2016 15:43:17 07/07/2016 09:54:04 Gynecologic examination 09750612 Z01.419 Pain of breast 95419310 N64.4 [id number] Lauren Trevino [facility] [place] [facility] ([facility] 122) [address] [facility] [place] [address] 12/19/2016 16:56:37 12/30/2016 14:11:29 Menopausal syndrome 509934051 N95.9 [id number] Lauren Trevino [facility] [place] [facility] ([facility] 122) [address] [facility] [place] [address] 02/20/2017 16:42:56 02/21/2017 08:39:53 Menopausal flushing 599837745 N95.1 Vaginal discharge 408629 006 N89.8 [id number] Lori Shrestha [facility] [place] [facility] ([facility] 122) [address] [facility] [place] [address] 08/01/2017 15:43:11 08/09/2017 12:35:37 Screening mammography 46870141 Z12.31 Menopausal flushing 1983 44145 N95.1 [id number] Lori Shrestha [facility] [place] [address] OB [address] [facility] [address] [place] [address] 02/12/2019 15:16:17 02/13/2019 09:18:20 Gynecologic examination 93339221 Z01.419 1. Counseled regarding prevention of STD's , condom use 2. Pap done and mammogram order given 3. Advised avoidance of tobacco, alcohol, and drugs . 4. Counseled regarding folic acid supplement ation, calcium needs and prevention of osteoporos is . 5. BSE reviewed and recommende d. 6. Follow up in one year or sooner if needed. Menopausal flushing 1983 69058 N95.1 1. Discussed hormonal options and otc [...] schedule for annual or sooner if needed. [id number] LINNETTE Mandel [address] [facility] [place] [address] 08/14/2020 10:55:17 08/17/2020 11:21:06 Menopausal syndrome 967714439 N95.9 1. Discussed hormonal options and otc [...] up in 3 months, sooner if needed. [id number] LINNETTE Mandel [address] [place] [address] 03/04/2021 09:56:12 03/05/2021 07:47:44 Gynecologic examination 43822224 Z01.419 1. Counseled regarding prevention of STD's , condom use 2. Pap done and sent to lab on vaginal vault 3. Advised avoidance of tobacco, alcohol, and drugs . 4. Counseled regarding folic acid supplement ation, calcium needs and prevention of osteoporos is . 5. BSE reviewed and recommende d. 6. Follow up in one year or sooner if needed. Pain in pelvis 55135137 R10.2 Will order pelvic ultrasound . Pt advised on treatment options for ovarian cysts.. Pt educated on other causes of pelvic pain included but not limited to constipati on or bladder issues. Pt verbalized understand ing. Will follow up pending results. Candidal vulvovaginitis 87437728 B37.3 Nuswab done and sent to lab. Counseled on STD prevention and condom use. Counseled on yeast and BV prevention . Will follow up pending lab results. Malignant tumor of breast 653088521 C50.211 Pt to follow with oncologist . [id number] LINNETTE Mandel [address] [place] [address] 12/01/2022 15:18:22 12/07/2022 11:06:49 Menopausal syndrome 793879449 N95.9 1. Discussed hormonal options and otc [...] months, sooner if needed. Gynecologi c examination 56000523 Z01.419 1. Counseled regarding prevention of STD's , condom use 2. Pelvic done. 3. Advised avoidance of tobacco, alcohol, and drugs . 4. Counseled regarding folic acid supplement ation, calcium needs and prevention of osteoporos is . 5. BSE reviewed and recommende d. 6. Follow up in one year or sooner if needed. Obesity 455873978 E66.9 Discussed diet and weight loss. Discussed making healthier food choices and increasing exercise. Discussed going to a public weigher. [id number] MD [place] Kuo 14 OB [address] [facility] [address] [place] [address] 03/15/2024 09:18:57 03/19/2024 12:15:21 Menopausal syndrome 580087822 N95.9 1. Discussed hormonal options and otc [...] months, sooner if needed. Gynecologi c examination 76231689 Z01.419 1. Counseled regarding prevention of STD's , condom use 2. Pelvic done. 3. Advised avoidance of tobacco, alcohol, and drugs . 4. Counseled regarding folic acid supplement ation, calcium needs and prevention of osteoporos is . 5. BSE reviewed and recommende d. 6. Follow up in one year or sooner if needed. Candidiasis of vagina 72 010460 B37.31 Health Concerns Section Related Observation LastModified by Organization Detai ls LastModified Time None Recorded Concern Status LastModified by Organization Details LastModified Time None Recorded Advance Directives Directive None Recorded Payers Encounter Date Sequence Insurance Name Policy Number Policy Roche Covered Member ID Roche Member ID Guarantor Name 02/12/2019 1 [place] [id number] Bianca D Recio [id number] Bianca Recio 02/12/2019 2 [facility] - [employer]ET[employer] (POS II) Randy Recio [id number] Bianca Recio 08/14/2020 1 [place] [id number] Bianca D Recio [id number] Bianca Recio 08/14/2020 2 [facility] - AETNA (POS II) Randy Recio [id number] Bianca Recio 03/04/2021 1 [place] [id number] Bianca D Recio [id number] Bianca Recio 03/04/2021 2 [facility] - [employer]ETNA (POS II) Randy Recio [id number] Bianca Recio 12/01/2022 1 [place] [id number] Bianca D Recio [id number] Bianca Recio 12/01/2022 2 [facility] [employer] [place] CHOICE POS II (POS) Randy Recio [id number] Bianca Recio 03/15/2024 1 [place] [id number] Bianca D Recio [id number] Bianca Recio 03/15/2024 2 [facility] [employer] - [place] - [place]ET[place] CHOICE POS II (POS) Randy Recio [id number] Bianca Recio Notes Date Note Type [...] increase patch if possible and add venlafaxine. LINNETTE Mandel Attn: Accounting[address] [place], [address], [facility] 02/12/2019 15:41:10 08/14/2020 text/html Annual GYNReport ed [...] this am. LINNETTE Mandel Attn: Accounting[address] [place], [address], [facility] 08/14/2020 11:09:30 03/04/2021 text/html Annual GYNReport ed [...] would like swab, [facility] Attn: Accounting,[address] [place], [address], [facility] 03/04/2021 10:31:16 12/01/2022 text/html Annual GYNReport ed [...] wnl-, hx gerd, migraines, breast cancer, hypothyroidism NIRMAL Mandel Attn: Accounting,[address] [place], [address], [facility] 12/01/2022 16:14:27 03/15/2024 text/html Annual [...] breast cancer, hypothyroidism- last pap wnl 03/04/21 KIKE Mandel-BC Attn: Accounting,[address] [facility] [address], [place], [address], [facility] 03/15/2024 09:54:23 OBGyn Episode No OBEpisode recorded.
--- OUTSIDE RECORDS SUMMARY | 2025-01-23 17:00 | XMS_ITS ---
Author Organization [facility] Address Formerly [facility], [facility] [place] [address] Care Team Providers Care Dope House Operator Helper Name Role Phone Maximiliano Bullard MD Primary Care Provider + Jace Hernnadez MD PhD Unavailable Diya Croft MD PhD Unavaila ble Jaxson Baig MD Unavailable [phone] Active Problems Problem Noted Date Diagnosed Date [...] from 12/16/2020:Stage IB(pT1a, pN0(sn), cM0, G3, ER-, IN-, HER2-) - Signed by Jace Hernandez MD PhD on 01/18/2021 Chronic back pain 08/14/2020 Gallbladder polyp 01/24/2019 Overview (02/25/2022): 06/14- stable 4mm, symptomatic referred to gen surg 01/13 Vitamin B12 deficiency (non anemic) 01/24/2019 Cervical lymphadenopathy 12/13/2018 Overview (02/25/2022): 12/14 US Constipation 11/21/2018 Obesity (BMI 30.0-34.9) 10/03/2018 Assessment & Plan (07/02/2023 5:47 AM MENTAL HEALTH CASE MANAGER): Counseled on diet and exercise Wheat allergy [...] taken. Assessment & Plan (07/02/2023 5:46 AM MENTAL HEALTH CASE MANAGER): Chronic, improving Recent TSH WNL Continue Synthroid [...] taken. Assessment & Plan (10/31/2022 3:48 PM MENTAL HEALTH CASE MANAGER): Reviewed pt last few thyroid lab results [...]
--- OUTSIDE RECORDS SUMMARY | 2025-01-23 17:00 | XMS_ITS | Clinical Summary ---
Author Organization [facility] Address [address] [address] Phone Care Team Providers Care Technical Applications Specialist Name Role Phone Maximiliano Bullard MD Primary Care Provider Danyell Goldberg APRN, METAL MACHINE SETTER Unavailable Allergies Active Allergy Reactions Criticality Noted [...] Take by mouth daily as needed. Active Synthroid 125 MCG Tablet Take 125 mcg by mouth daily. 04/22/20 20 Active B-D 3CC LUER-BIBIANA SYR 25GX1/2 25G X 1-1/2 3 ML Misc FOR B12 INJECTION MONTHLY. 04/03/20 20 Active Linzess 290 MCG Capsule TAKE 1 CAP BY MOUTH EVERY MORNING BEFORE BREAKFAST 30 Cap 2 09/16/19 21 Active Additional Information Patient taking differently: 290 mcg DAILY PRN, Reported on 11/15/2024 ALPRAZolam (XANAX) 0.25 MG Tablet Take 0.25 mg by mouth daily as needed for Anxiety. 03/05/20 21 Active Cyanocobalamin (B-12 IJ) by Injection route every 30 days. Active traMADol (ULTRAM) 50 MG TabletIndicatio ns:Kidney stone Take 1-2 Tablets by mouth every 6 hours as needed for Moderate or more severe pain. 12 Tablet 12/10/19 22 Active naproxen (NAPROSYN) 500 MG Tablet Take 1 Tablet by mouth 2 times daily as needed for Mild or more severe pain. 20 Tablet 07/30/20 22 Active Additional Information Patient not taking.Reported on 03/14/2023 estradiol (ESTRACE) 0.1 MG/GM Cream 0.01 g by Vaginal route. 12/02/19 23 Active famotidine (PEPCID) 20 MG TabletIndicatio ns:Gastroesopha geal reflux disease without esophagitis Take 1 Tablet by mouth every evening. 180 Tablet 1 12/06/19 23 Active Additional Information Patient taking differently:20 mg OralNIGHTLY PRN, Reported on 11/15/2024 buPROPion SR (WELLBUTRIN SR) 150 MG TABLET SR 12 HR Take 150 mg by mouth daily. Active naproxen (NAPROSYN) 500 MG Tablet Take 1 Tablet by mouth 2 times daily as needed for Moderate or more severe pain. 20 Tablet 05/12/20 24 Active Additional Information Patient not taking.Reported on 07/23/2024 DULoxetine (CYMBALTA) [address] Particles TAKE 1 CAPSULE BY MOUTH EVERY DAY 90 Capsule 06/24/20 24 Active Additional Information Patient not taking.Reported on 07/23/2024 Phentermine HCl 37.5 MG Tablet take 1 tablet by mouth daily before breakfast Active pantoprazole (PROTONIX) 40 MG Tablet Delayed ResponseIndicat ions:Urena's esophagus without dysplasia,Gastr oesophageal reflux disease without esophagitis Take 1 Tablet by mouth daily. 90 Tablet 3 07/23/20 24 Active BUDESONIDE, INHALATION, 1 MG/2ML SuspensionIndic ations:Eosinoph ilic esophagitis Take 2 mL by mouth 2 times daily. Mix with Splenda (Sucralose) to make a slurry and drink it twice a day. 240 mL 11/30/19 25 Active cyclobenzaprine (FLEXERIL) 10 MG TabletIndicatio ns:Muscle Spasm Take 1 tablet by mouth every 12 hours as needed for muscular back pain. Indications: Muscle Spasm 20 Tablet 01/11/20 25 Active cyclobenzaprine (FLEXERIL) 10 MG Tablet TAKE ONE TABLET BY MOUTH THREE TIMES A DAY NEEDED FOR SPASMS 01/24/20 20 025 Discontin ued(Med List Clean Up) Active Problems Problem Noted Date Diagnosed Date [...] Axillary lymphadenopathy 07/05/202111/2022 Breast pain, right 07/05/2021 5 Encounters Date Type Department Care Team Description 01/10/2025 Telephone [facility] Oncology Services [address] [place] [address] Héctor Casanova MD 11/28/2024 Results Follow-Up [facility] [address] [place] [address] Claudy Fuentes MD Pathology Surgical 11/21/2024 Telephone [facility] [address] [place] [address] Cali Hwang MD Results 11/15/2024 8:54 AM CDT Anesthesia Event [facility] Gi [facility] Periop [address] [place] [address] Anjel Koenig APRN, COMPLAINT SPECIALIST 11/15/2024 8:30 AM CDT - 11/15/2024 9:00 AM CDT Surgery [facility] Periop [address] [place] [address] Claudy Fuentes MD EGD- 2nd part dudenum biopsy-pre pyloric biopsy-antral polypectomy x1 biopsy forceps-ge junction r/o EOE biopsy-esophageal biopsy @ 25cm-esophageal biopsy @ 20cm 11/15/2024 7:50 AM CDT Ancillary Procedure [facility] Lab Main [address] [place] [address] Claudy Fuentes MD 11/15/2024 7:39 AM CDT - 11/15/2024 10:02 AM CDT Hospital Encounter [facility] Lab Preop/Pacu II [address] [place] [address] Claudy Fuentes MD Urena's esophagus Discharge Disposition: Discharged to home or Selfcare 11/15/2024 Travel 11/04/2024 Travel 10/28/2024 Telephone 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 on file Not on [...] 3:00 PM CDT Height 162.6 cm (5' 4) 11/04/2024 3:00 PM CDT Body Mass Index 33.47 11/04/2024 3:00 PM CDT Plan of Treatment Upcoming Encounters Date Type Department Care Team (Late st Contact Info) Description 02/11/2025 4:30 PM CDT Office Visit [facility] - Gastroenterology [facility] [address] [place] [address] Danyell Goldberg APRN, METAL MACHINE SETTER [address] [place] [address] 07/30/2025 2:00 PM BARK FITTER Office Visit [facility] Oncology Services [address] [place] [address] Héctor Casanova MD [address] [place] [address] Discharge Disposition: Discharged to home or Selfcare Health Maintenance Due Date Last Done Comments Hepatitis C Virus (HCV) Screening 1965 Hepatitis B Immunization (1 of 3 - 19+ 3-dose series) 1986 Cologuard 2017 Immunochemical Fecal Occult Blood 2017 Pneumococcal Immunization (50+ years) (2 of 2 - PCV) 02/22/2022 02/22/2021 SARS-COV-2 Immunization ( - season) 2024 09/08/2023, 05/09/2021, 11/21/2020, Additional history exists Mammogram 07/22/2025 07/22/2024, 03/2024, 12/29/2023, Additional history exists Colonoscopy 03/24/2028 03/24/2023, 0 03/2017, 01/02/2017, Additional history exists Colorectal Cancer Screening 03/24/2028 Td Immunization Every 10 Years (Adults With 1 Tdap) 09/03/2028 09/03/2018, 10/01/2007 Respiratory Syncytial Virus (RSV) Immunization (Adult) (1 - 1-dose 75+ series) 2042 03/24/2023, 0 03/2017, 01/02/2017, Additional history exists DTaP/Tdap/Td Immunization Discontinued 09/03/2018, 11/2007 Pneumococcal Immunization Combined Discontinued 02/22/2021 Zoster Immunization Completed 12/01/2023, 10/09/2023, 09/08/2023 Influenza Immunization Completed , 07/18/2023, 05/16/2022, Additional history exists Human Papillomavirus (HPV) Immunization Aged Out No longer eligible based on patient's age to complete this topic Meningococcal Immunization (ACWY) Aged Out No longer eligible based on patient's age to complete this topic Rotavirus Immunization Aged Out No lo nger eligible based on patient's age to complete this topic Procedures Procedure Name Priority Date/Time Associated Diagnosis Comments PATHOLOGY SURGICAL Routine 11/15/2024 9:19 AM CDT PA ESOPHAGOGASTRODUODENOSCOP Y TRANSORAL DIAGNOSTIC 11/15/2024 9:07 AM CDT EGD- 2nd part dudenum biopsy-pre pyloric biopsy-antral polypectomy x1 biopsy forceps-ge junction r/o EOE biopsy-esophage al biopsy @ 25cm-esophageal biopsy @ 20cm Special Needs DX URENA'S ESOPH. GERD NO BP OR STICKS ON RIGHT DUE TO LYMPHEDEMA, HX PARTIAL MASTECTOMY ON RIGHT ANXIETY PA EGD FLEXIBLE TRANSNASAL D X W/COLLJ SPEC [...] - EGD Routine 11/15/2024 7:46 AM CDT SAVANAH SCREENING BILATERAL DIGITAL W CAD Routine 08/01/2015 HM COLONOSCOPY Routine 10/19/2012 from Last 3 Months or Most Recently Relevant to Health Maintenance Results * Pathology Surgical (11/15/2024 9:19 AM CDT) Case Report Surgical Pathology Report Case: [id number] Authorizing Provider: Claudy Fuentes MD Collected: 11/15/2024 09:19 AM Ordering Location: [facility] Received: 11/15/2024 12:43 PM [facility] GI Lab Preop/Pacu II Pathologist: Batool Alford MD PhD Specimens: A) - Duodenum, 2nd part duodenum biopsy B) - Stomach, pre pyloric biopsy C) - Stomach, antral polyp x1 D) - GE Junction, ge junction biopsy r/o EOE E) - Esophagus, esophageal biopsy at 25cm F) - Esophagus, esophageal biopsy at 20cm 11/18/2024 9:41 AM CDT [facility] FINAL DIAGNOSIS A. Second part [...] power field 11/18/2024 9:41 AM CDT [facility] at 0941 CDT Pre-Operative Diagnosis URENA'S ESOPHAGUS 11/18/2024 9:41 AM CDT [facility] Gross Description A. 2nd part duodenum biopsy The specimen presents in six formalin containers for gross and microscopic examination labeled with the patient's name, Bianca Recio. Part A is designated as second part [...] F1. KS/sb 11/18/2024 9:41 AM CDT [facility] Microscopic Description Microscopic examination was performed which supports the final diagnosis. All control tissues stained appropriately. 11/18/2024 9:41 AM CDT [facility] Tissue DUODENAL STRUCTURE / Unknown 11/15/2024 [...] 9:20 AM CDT 11/15/2024 12:43 PM CDT Claudy Fuentes MD PATHOLOGY/CYTOLOGY ORDERAB LES Final Result [facility] [address] [place] [address] * GI LAB IMAGING - EGD (11/15/2024 7:46 AM CDT) Claudy WEBER DIAGNOSTIC ORDERABLES Final Result * SAVANAH SCREENING BILATERAL DIGITAL W CAD (08/01/2015) Anatomical Region Laterality Modality breast Bilateral Other us Jaye WEBER MAMMO ORDERABLES Edited Result - Final * HM COLONOSCOPY (10/19/2012) us Jaye Perdomo MD PROCEDURE/MINOR SURGICAL OR DERABLES Final Result from Last 3 Months or Most Recently Relevant to Health Maintenance Insurance [facility] Care Teams Technical Applications Specialist Relationship Specialty Start Date End Date Maximiliano Bullard MD [address] [place] [address] PCP - General 04/21/16 Danyell Goldberg APRN, METAL MACHINE SETTER [address] [place] [address] Nurse Practitioner Advanced Practice Nurse 12/05/22
--- OUTSIDE RECORDS SUMMARY | 2025-01-23 17:00 | XMS_ITS | Clinical Summary ---
Author Organization [facility] Address [facility] [place] [address] Care Team Providers Care Process Excellence Manager Name Role Phone Maximiliano Bullard MD Primary Care Provider + Jace Hernandez MD PhD Unavailable [phone] Diya Croft MD PhD Unavaila ble Jaxson Baig MD Unavailable [phone] Allergies Active Allergy Reactions Criticality Noted Date Comments [place] Rash Medium 03/07/2016 Ciprofloxacin Anaphylaxis,Other (See comments) [...] Other reaction(s): Other (See Comments) Itchy throat [place] Other (See comments) High 01/23/2018 Itchy throat [...] from 12/16/2020:Stage IB(pT1a, pN0(sn), cM0, G3, ER-, NM-, HER2-) - Signed by Jace Hernandez MD PhD on 01/18/2021 Chronic back pain 08/14/2020 Gallbladder polyp 01/24/2019 Overview (02/25/2022): 06/14- stable 4mm, symptomatic referred to gen surg 01/13 Vitamin B12 deficiency (non anemic) 01/24/2019 Cervical lymphadenopathy 12/13/2018 Overview (02/25/2022): 12/14 US Constipation 11/21/2018 Obesity (BMI 30.0-34.9) 10/03/2018 Assessment & Plan (07/02/2023 5:47 AM UTILIZATION ENGINEER): Counseled on diet and exercise Wheat allergy [...] taken. Assessment & Plan (07/02/2023 5:46 AM UTILIZATION ENGINEER): Chronic, improving Recent TSH WNL Continue Synthroid [...] taken. Assessment & Plan (10/31/2022 3:48 PM UTILIZATION ENGINEER): Reviewed pt last few thyroid lab results [...] Encounters Date Type Department Care Team Description 12/09/2024 Telephone [facility] Diabetes and Endocrinology [address] [place] [address] Lakhwinder Keane, Donny Keane MD Appointment/Schedules from Last 3 Months Immunizations Immunization Administration [...] NODES PARTIAL 08/28/2020 - 08/27/2021 Right pT1aN0, ER-/NM-/HER2- COLONOSCOPY BREAST BIOPSY 08/28/1998 - 08/27/1999 Left Breast biopsy BREAST BIOPSY 10/26/2020 Right malignant bx BREAST LUMPECTOMY Left BREAST BIOPSY 07/02/2021 Right US GUIDED BIOPSY LYMPH NODE SUPERFICIAL LEFT 07/02/2021 N/A Medical History Medical History Date Comments Hx Other Medical 1999 ABNL PAPS, ENDO METRIOSIS Gastroesophageal reflux disease [...] on file Legal Sex Female 2:37 PM UTILIZATION ENGINEER Gender Identity Female 10/24/2022 6:31 AM UTILIZATION ENGINEER Sexual Orientation Straight 01/21/2021 6: 44 AM [...] 36.5 C (97.7 F) 09/22/2022 3:07 PM UTILIZATION ENGINEER Respiratory Rate 16 04/08/2024 2:22 PM CDT Oxygen Saturation 99% 09/22/2022 3:07 PM UTILIZATION ENGINEER Inhaled Oxygen Concentration - - Weight 88.9 kg (196 lb) 04/08/2024 2:22 PM CDT Height 162.6 cm (5' 4) 04/08/2024 2:22 PM CDT Body Mass Index [...] history exists Medical Devices Implanted Type Area Real Estate Associate Attorney Device Identifier Shelf Expiration Date Model / Serial / Lot [employer] [id number] Mammomark Cormark Tissue Bowtie Marker Breast Biopsy Collagen - [id number] - [id number] Implanted:Qty: 1 on 10/26/2020 by Douglas Hanley MD at [facility] Breast Right: Breast [employer] 11/23/2021 [id number] / [id number] / Bard Peripheral Vascular [id number] Ultraclip Bard 17ga 10cm 2 Trigger Permanent Ultrasound - [id number] - [id number] Implanted:Qty: 1 on 07/02/2021 by Maximiliano Martinez MD at [facility] Breast Right: Breast [employer] 12/24/2023 [id number] / [id number] / Description:Implanted Right Breast at 9:00 area 3 cmfn Bard Peripheral [employer] [id number] Ultraclip Bard 17ga 10cm 2 Trigger Permanent Ultrasound - [id number] - [id number] Implanted:Qty: 1 on 07/02/2021 by Maximiliano Martinez MD at [facility] Breast Right: Axilla [employer] 02/23/2024 [id number] / [id number] / Description:Implanted Right Axillary Lymph Node [employer] [id number] [place] 20ga 5cm Reposition J Curve Wire Centimeter Constantino Stabilizer - [id number] Implanted:Qty: 1 on 08/02/2021 at [facility] [employer] [id number] 10/10/2024 [id number] / / [id number] Procedures Procedure Name Priority Date/Time Associated Diagnosis Comments DIAGNOSTIC MAMMOGRAM BILATERAL W MISAEL Schedule Routine, Read Routine (OP Routine) 07/22/2024 10:14 AM UTILIZATION ENGINEER Breast pain, right from Last 3 Months or Most Recently Relevant to Health Maintenance Results * Diagnostic Mammogram Bilateral W [place] (07/22/2024 10:14 AM UTILIZATION ENGINEER) Anatomical Region Laterality Modality Breast Bilateral Mammography 07/22/2024 11:3 6 AM UTILIZATION ENGINEER Impressions 07/22/2024 11:36 AM UTILIZATION ENGINEER There is no mammographic evidence of malignancy. The patient may continue screening mammography as per ACR guidelines. FINAL ASSESSMENT: BI-RADS 2 - Benign Findings Electronically signed by: Dulce Lazcano M.D. Narrative 07/22/2024 11:36 AM UTILIZATION ENGINEER EXAMINATION: BILATERAL DIGITAL DIAGNOSTIC MAMMOGRAM INCLUDING CAD [...] seen in the axillae or elsewhere. Héctor Casanova MD IM MAMMO PROCEDURES Fin al Result from Last 3 Months or Most Recently Relevant to Health Maintenance Insurance The 5th Quarter OOS The 5th Quarter OOS The 5th Quarter OOS Care Teams Process Excellence Manager Relationship Specialty Start Date End Date Maximiliano Bullard MD PCP - General 05/04/18 Jace Hernandez MD PhD [address] [place] [address] Radiation Oncologist Radiation Oncology 01/18/21 Diya Croft MD PhD [address] [place] [address] Referring Physician Surgical Oncology 01/18/21 Jaxson Baig MD [address] [place] [address] Consulting Physician Medical Oncology 03/26/21
--- OUTSIDE RECORDS SUMMARY | 2025-01-23 17:00 | XMS_ITS | Encounter Summary ---
Author Organization [facility] Address [address] [place] [address] Care Team Providers Care Faith Healer Name Role Phone Maximiliano Bullard MD Primary Care Provider [phone] Reason for Visit * Reason Comments Provider Call Provider Call Provider Call Encounter Details Date Type Department Care Team ([facility] Contact Info) Description 09/20/[address] [facility] Primary Care [address] [place] [address] Maximiliano Bullard MD [address] [place] [address] [address] [place] [address] Provider Call; Provider Call; Provider Call Social History Tobacco Use Types Packs/Day Years Used Date Smoking Tobacco: Never Passive Smoke Exposure: Never Smokeless Tobacco: Never Alcohol Use Standard Drinks/Week Comments Yes 5 (1 standard drink = 0.6 oz pur e alcohol) Comments No Sex and Gender Information Value Date Recorded Sex Assigned at Not on file Legal Sex Female 3:31 AM ENROLLER Gender Identity Not on file Sexual Orientation Not on file documented as of this encounter Miscellaneous Notes * Telephone Encounter - Elder Evans - 09/25/2024 10:45 AM ENROLLER Copied from [facility] #[id number]. Topic: Jrslnxlf-Oh-Vqavwdum Call >> Sep 25, 2024 10:43 AM Elder Hall wrote: Caller is requesting to speak with Clinical Care Team. [facility] Callback Number: [phone] EXT 3 Clinician Type: Other healthcare professional not listed above Call Notes: Neris states CT Calcium is scheduled for tomorrow and PA is still pending with insurance. Please advise patient Is this addressing an immediate patient care need? No LLER * Telephone Encounter - Patricia Phillips - 09/23/2024 9:15 AM CST Copied from [facility] #[id number]. Topic: Tkeauheh-Nu-Dgvnitic Call >> Sep 23, 2024 9:11 AM Patricia Faustin wrote: Caller is requesting to speak with Clinical Care Team. Caller Name: Jessica Callback Number: [phone] ext 3 Clinician Type: Other healthcare professional not listed above Call Notes: Jessica with [facility] Pre-Arrival calling in to check on the pre authorization for patient to have a CT coronary calcium score. Advised Jessica, that I did not see any updates on patient's chart, please advise. Scheduled for 09/26/24 Fax, Is this addressing an immediate patient care need? No LLER * Telephone Encounter - Tung Mejia - 09/20/2024 12:10 PM CST Copied from [facility] #[id number]. Topic: Fmqljohs-Vx-Ueerfeow Call >> Sep 20, 2024 12:06 PM Tung Arnold wrote: Caller is requesting to speak with Clinical Care Team. Caller Name: Jenn [facility] prearrival. Callback Number: [phone]- Optional 3 Clinician Type: Other healthcare professional not listed above Call Notes: Received an order from Dr. Bullard for CT CORONARY CALCIUM SCORE scoring- needing clinials in order to inital PA for her insurance Please fax to : [phone] Please advise. Is this addressing an immediate patient care need? No LLER documented in this encounter Plan of Treatment Upcoming Encounters Date Type Department Care Team (Late st Contact Info) Description 04/16/2025 3:00 PM CDT Office Visit [facility] Primary Care [address] [place] [address] Maximiliano Bullard MD [address] [place] [address] [address] [place] [address] documented as of this encounter Visit Diagnoses Not on filedocumented in this encounter Care Teams Faith Healer Relationship Specialty Start Date End Date Maximiliano Bullard MD PCP - General Internal Medicine 03/07/16 documented as of this encounter
--- OUTSIDE RECORDS SUMMARY | 2025-01-23 17:00 | XMS_ITS | Encounter Summary ---
Author Organization [facility] Healthcare Address [address] [place] [address] Care Team Providers Care Sales Representative Sales Manager Name Role Phone Maximiliano Bullard MD Primary Care Provider + Jace Hernandez MD PhD Unavailable [phone] Diya Croft MD PhD Unavaila ble Jaxson Baig MD Unavailable [phone] Encounter Details Date Type Department Care Team (Late st Contact Info) Description 07/18/2023 Telephone [facility] [address] [place] [address] Yesenia Baltazar Social History Tobacco Use Types [...] on file Legal Sex Female 2:37 PM MEDIA MARKETING SPECIALIST Gender Identity Female 10/24/2022 6:31 AM MEDIA MARKETING SPECIALIST Sexual Orientation Straight 01/21/2021 6: 44 AM CDT documented as of this encounter Miscellaneous Notes * Telephone Encounter - Yesenia Baltazar - 01/11/2024 11:19 AM CDT documented in this encounter Plan of Treatment Not on file documented as of this encounter Visit Diagnoses Not on filedocumented in this encounter Care Teams Sales Representative Sales Manager Relationship Specialty Start Date End Date Maximiliano Bullard MD PCP - General 05/04/18 Jace Hernandez MD PhD [address] [place] [address] Radiation Oncologist Radiation Oncology 01/18/21 Diya Croft MD PhD [address] [place] [address] Referring Physician Surgical Oncology 01/18/21 Jaxson Baig MD [address] [place] [address] Consulting Physician Medical Oncology 03/26/21 documented as of this encounter
--- OUTSIDE RECORDS SUMMARY | 2025-01-23 17:00 | XMS_ITS | Encounter Summary ---
Author Organization [facility] Healthcare Address [address] [place] [address] Care Team Providers Care Recreational Counselor Name Role Phone Maximiliano Bullard MD Primary Care Provider + Jace Hernandez MD PhD Unavailable [phone] Diya Croft MD PhD Unavaila ble Jaxson Baig MD Unavailable [phone] Reason for Visit * Reason Onset Date Comments Scheduling Appointments 06/17/2021 confirmi ng mammogram appt Encounter Details Date Type Department Care Team (Late st Contact Info) Description 06/17/2021 [facility] [address] [place] [id number] [address]se[address] Four[address] Scheduling Appointments ( confirming mammogram appt) Social History Tobacco Use Types Packs/Day Years Used Date Smoking Tobacco: Never Smokeless Tobacco: Never Alcohol Use Standard Drinks/Week Comments Yes 0 (1 standard drink = 0.6 oz pur e alcohol) Comments No Sex and Gender Information Value Date Recorded Sex Assigned at Not on file Legal Sex Female 2:37 PM DELIVERY PERSON Gender Identity Female 10/24/2022 6:31 AM DELIVERY PERSON Sexual Orientation Straight 01/21/2021 6: 44 AM CDT documented as of this encounter Plan of Treatment Not on file documented as of this encounter Visit Diagnoses Not on filedocumented in this encounter Additional Health Concerns Infection Onset Date Last Indicated Resolved Time COVID: Suspected 09/10/2021 09/10/2021 09/10/2021 1:32 PM DELIVERY PERSON COVID: Suspected 09/10/2021 09/10/2021 09/11/2021 11:37 AM DELIVERY PERSON documented as of this encounter Care Teams Recreational Counselor Relationship Specialty Start Date End Date Maximiliano Bullard MD PCP - General 05/04/18 Jace Hernandez MD PhD [address] [place] [address] Radiation Oncologist Radiation Oncology 01/18/21 Diya Croft MD PhD [address] [place] [address] Referring Physician Surgical Oncology 01/18/21 Jaxson Baig MD [address] [place] [address] Consulting Physician Medical Oncology 03/26/21 documented as of this encounter
--- OUTSIDE RECORDS SUMMARY | 2025-01-23 17:00 | XMS_ITS | Encounter Summary ---
Author Organization [facility] Address [address] [place] [address] Care Team Providers Care Pound Attendant Name Role Phone Maximiliano Bullard MD Primary Care Provider [phone] Reason for Visit * Reason Onset Date Comments closing case 12/27/2021 Encounter Details Date Type Department Care Team (Late st Contact Info) Description 12/27/2021 Telephone [facility] Primary Care [address] [place] [address] Maximiliano Bullard MD [address] [place] [address] [address] [place] [address] closing case Social History Tobacco Use Types Packs/Day Years Used Date Smoking Tobacco: Never Smokeless Tobacco: Never Alcohol Use Standard Drinks/Week Comments Yes 5 (1 standard drink = 0.6 oz pur e alcohol) Comments No Sex and Gender Information Value Date Recorded Sex Assigned at Not on file Legal Sex Female 3:31 AM BARBER OR BEAUTY SHOP MANAGER Gender Identity Not on file Sexual Orientation Not on file documented as of this encounter Miscellaneous Notes * Telephone Encounter - Joaquina Luciano Catalina - 12/27/2021 12:52 PM CDT Name of PCP Provider or Prescribing Provider: Maximiliano Bullard MD Next office visit: 05/16/2022 Caller: Linda branch operation evaluation manager at [facility] Message: Linda called stating she was Unable to reach patient, Linda stated they will be closing patient case. Please advise. Call back Number: [phone] documented in this encounter Plan of Treatment Upcoming Encounters Date Type Department Care Team (Late st Contact Info) Description 04/16/2025 3:00 PM CDT Office Visit [facility] Primary Care [address] [place] [address] Maximiliano Bullard MD [address] [place] [address] [address] [place] [address] documented as of this encounter Visit Diagnoses Not on filedocumented in this encounter Care Teams Pound Attendant Relationship Specialty Start Date End Date Maximiliano Bullard MD PCP - General Internal Medicine 03/07/16 documented as of this encounter
--- OUTSIDE RECORDS SUMMARY | 2025-01-23 17:00 | XMS_ITS | Referral Summary ---
Author Organization [facility] Address [address] [place] [address] Care Team Providers Care City Engineer Name Role Phone Maximiliano Bullard MD Primary Care Provider + Jace Hernandez MD PhD Unavailable [phone] Diya Croft MD PhD Unavaila ble Jaxson Baig MD Unavailable [phone] Encounters Date Type Department Care Team Description 12/09/2024 Telephone [facility] Diabetes and Endocrinology [address] [place] [address] Lakhwinder Keane, Donny Keane MD Appointment/Schedules from Last 3 Months Allergies Active Allergy Reactions Criticality Noted Date Comments [place] Rash Medium 03/07/2016 Ciprofloxacin Anaphylaxis,Other (See comments) [...] Other reaction(s): Other (See Comments) Itchy throat [place] Other (See comments) High 01/23/2018 Itchy throat [...] WEEK Active methocarbamoL (ROBAXIN) 750 mg tablet 04/07/20 22 Active BD Luer-Hermilo Syringe 3 mL [...] from 12/16/2020:Stage IB(pT1a, pN0(sn), cM0, G3, ER-, GA-, HER2-) - Signed by Jace Hernandez MD PhD on 01/18/2021 Chronic back pain 08/14/2020 Gallbladder polyp 01/24/2019 Overview (02/25/2022): 06/14- stable 4mm, symptomatic referred to gen surg 01/13 Vitamin B12 deficiency (non anemic) 01/24/2019 Cervical lymphadenopathy 12/13/2018 Overview (02/25/2022): 12/14 US Constipation 11/21/2018 Obesity (BMI 30.0-34.9) 10/03/2018 Assessment & Plan (07/02/2023 5:47 AM RESIDENT SERVICES COORDINATOR): Counseled on diet and exercise Wheat allergy [...] taken. Assessment & Plan (07/02/2023 5:46 AM RESIDENT SERVICES COORDINATOR): Chronic, improving Recent TSH WNL Continue Synthroid [...] taken. Assessment & Plan (10/31/2022 3:48 PM RESIDENT SERVICES COORDINATOR): Reviewed pt last few thyroid lab results [...] on file Legal Sex Female 2:37 PM RESIDENT SERVICES COORDINATOR Gender Identity Female 10/24/2022 6:31 AM RESIDENT SERVICES COORDINATOR Sexual Orientation Straight 01/21/2021 6: 44 AM CDT Last Filed Vital Signs Vital Sign Reading Time Taken Comments Blood Pressure 120/82 04/08/2024 2:22 PM CDT Pulse 71 04/08/2024 2:22 PM CDT Temperature 36.5 C (97.7 F) 09/22/2022 3:07 PM RESIDENT SERVICES COORDINATOR Respiratory Rate 16 04/08/2024 2:22 PM CDT Oxygen Saturation 99% 09/22/2022 3:07 PM RESIDENT SERVICES COORDINATOR Inhaled Oxygen Concentration - - Weight 88.9 kg (196 lb) 04/08/2024 2:22 PM CDT Height 162.6 cm (5' 4) 04/08/2024 2:22 PM CDT Body Mass Index 33.64 04/08/2024 2:22 PM CDT Plan of Treatment Not on file Medical Devices Implanted Type Area Community Liaison Officer Device Identifier Shelf Expiration Date Model / Serial / Lot [employer] [id number] Mammomark Cormark Tissue Bowtie Marker Breast Biopsy Collagen - [id number] - [id number] Implanted:Qty: 1 on 10/26/2020 by Douglas Hanley MD at [facility] Breast Right: Breast [employer] 11/23/2021 [id number] / [id number] / Bard Peripheral Vascular [id number] Ultraclip Bard 17ga 10cm 2 Trigger Permanent Ultrasound - [id number] - [id number] Implanted:Qty: 1 on 07/02/2021 by Maximiliano Martinez MD at [facility] Breast Right: Breast [employer] 12/24/2023 [id number] / [id number] / Description:Implanted Right Breast at 9:00 area 3 cmfn Bard Peripheral Vascular [id number] Ultraclip Bard 17ga 10cm 2 Trigger Permanent Ultrasound - [id number] - [id number] Implanted:Qty: 1 on 07/02/2021 by Maximiliano Martinez MD at [facility] Breast Right: Axilla Bard Peripheral Vascular 02/23/2024 [id number] / [id number] / Description:Implanted Right Axillary Lymph Node [employer] [id number] [place] 20ga 5cm Reposition J Curve Wire Centimeter Constantino Stabilizer - [id number] Implanted:Qty: 1 on 08/02/2021 at [facility] [employer] [id number] 10/10/2024 [id number] / / [id number] Procedures Procedure Name Priority Date/Time Associated Diagnosis Comments DIAGNOSTIC MAMMOGRAM BILATERAL W MISAEL Schedule Routine, Read Routine (OP Routine) 07/22/2024 10:14 AM RESIDENT SERVICES COORDINATOR Breast pain, right from Last 3 Months or Most Recently Relevant to Health Maintenance Results * Diagnostic Mammogram Bilateral W Misael (07/22/2024 10:14 AM RESIDENT SERVICES COORDINATOR) Anatomical Region Laterality Modality Breast Bilateral Mammography 07/22/2024 11:3 6 AM RESIDENT SERVICES COORDINATOR Impressions 07/22/2024 11:36 AM RESIDENT SERVICES COORDINATOR There is no mammographic evidence of malignancy. The patient may continue screening mammography as per ACR guidelines. FINAL ASSESSMENT: BI-RADS 2 - Benign Findings Electronically signed by: Dulce Lazcano M.D. Narrative 07/22/2024 11:36 AM RESIDENT SERVICES COORDINATOR EXAMINATION: BILATERAL DIGITAL DIAGNOSTIC MAMMOGRAM INCLUDING CAD [...] Most Recently Relevant to Health Maintenance Insurance OQO OOS OQO OOS OQO OOS Care Teams City Engineer Relationship Specialty Start Date End Date Maximiliano Bullard MD PCP - General 05/04/18 Jace Hernandez MD PhD [address] [place] [address] Radiation Oncologist Radiation Oncology 01/18/21 Diya Croft MD PhD [address] [place] [address] Referring Physician Surgical Oncology 01/18/21 Jaxson Baig MD [address] [place] [address] Consulting Physician Medical Oncology 03/26/21
--- OUTSIDE RECORDS SUMMARY | 2025-01-23 17:00 | XMS_ITS | Clinical Summary ---
Author Organization [facility] Address [address] [place] [address] Care Team Providers Care Family Protection Specialist Name Role Phone Maximiliano Bullard MD Primary Care Provider [phone] Allergies Active Allergy Reactions Criticality Noted Date Comments [place] Rash Medium 03/07/2016 Ciprofloxacin Anaphylaxis,Other (See Comments) [...] Itchy throat Unclassified Drug Anaphylaxis High 01/23/2018 [place] Other (See Comments) High 01/23/2018 Itchy throat [...] Encounters Date Type Department Care Team Description 01/16/2025 External Device Data STL ABSTRACTION Provider, Abstract 01/14/2025 External Device Data STL ABSTRACTION Provider, Abstract 12/31/2024 External Device Data STL ABSTRACTION Provider, Abstract 11/29/2024 Abstract [facility] Primary Care [place] [address] [facility] [address] [place] [address] Provider, Abstract 11/13/2024 External Device Data STL ABSTRACTION Provider, [...] COVID-19 VACCINE - EMERGENCY USE AUTHORIZATION, MRNA, [id number]) 30 MCG/0.3 ML IM SUSP 09/08/2023,05/09/2021,11/21/2020,10/26 (PNEUMOVAX [...] his 50's now GERD Brother 5 Douglas Amador GERD Brother 6 GERD Brother 7 GERD Brother 8 GERD Father Breast Cancer Maternal Grandmother Zhane Lucero both b reast removed Diabetes Maternal Grandmother Zhane Lucero GERD Mother Toya Amador Other Mother Toya Amador nav dise ase Thyroid Disease Mother [...] on file Legal Sex Female 3:31 AM DOGGY DAYCARE ACTIVITIES DIRECTOR Gender Identity Not on file Sexual Orientation Not on file Last Filed Vital Signs Vital Sign Reading Time Taken Comments Blood Pressure 108/72 09/16/2024 3:02 PM DOGGY DAYCARE ACTIVITIES DIRECTOR Pulse 86 09/16/2024 3:02 PM DOGGY DAYCARE ACTIVITIES DIRECTOR Temperature 36.2 C (97.1 F) 10/04/2023 11:44 AM DOGGY DAYCARE ACTIVITIES DIRECTOR Respiratory Rate 16 10/04/2023 11:44 AM DOGGY DAYCARE ACTIVITIES DIRECTOR Oxygen Saturation 97% 09/16/2024 3:02 PM DOGGY DAYCARE ACTIVITIES DIRECTOR Inhaled Oxygen Concentration - - Weight 90.4 kg (199 lb 3.2 oz) 09/16/2024 3:02 P M DOGGY DAYCARE ACTIVITIES DIRECTOR Height 162.6 cm (5' 4) 09/16/2024 3:02 PM DOGGY DAYCARE ACTIVITIES DIRECTOR Body Mass Index 34.19 09/16/2024 3:02 PM DOGGY DAYCARE ACTIVITIES DIRECTOR Plan of Treatment Upcoming Encounters Date Type Department Care Team (Late st Contact Info) Description 04/16/2025 3:00 PM CDT Office Visit [facility] Care [address] [place] [address] Maximiliano Bullard MD [address] [place] [address] Health Maintenance Due Date Last Done Comments [...] Cancer Screening 01/02/2027 Pre-Diabetes and Diabetes Screening 12/14/2027 12/13/2024, 04/15/2024, 07/08/2023, Additional history exists DTAP/TDAP/TD VACCINES (3 - T d or Tdap) 09/03/2028 09/03/2018, 10/01/2007 ZOSTER VACCINE Completed 10/09/2023, 09/08/2023 INFLUENZA VACCINE Completed 09/16/2024, , 05/16/2022, Additional history exists Preventative Visit- Commercial Completed 0 09/16/2024, 03/15/2024, 12/01/2022, Additional history exists Procedures Procedure Name Priority Date/Time Associated Diagnosis Comments VITAMIN D 25 HYDROXY Routine 12/13/2024 7:30 AM CDT Vitamin D deficiency VITAMIN B12 LEVEL Routine 12/13/2024 7:3 0 AM CDT Vitamin B12 deficiency (non anemic) T4 FREE Routine 12/13/2024 7:30 AM CDT Other specified hypothyroidism T3 FREE Routine 12/13/2024 7:30 AM CDT Other specified hypothyroidism LIPID PANEL Routine 12/13/2024 7:30 AM CDT Encounter for routine adult health examination with abnormal findings HEMOGLOBIN A1C Routine 12/13/2024 7:30 AM CDT Abnormal glucose COMPREHENSIVE METABOLIC PANEL Routine 12/13/2024 7:30 AM CDT Encounter for routine adult health examination with abnormal findings CBC WITH DIFFERENTIAL Routine 12/13/2024 7:30 AM CDT Encounter for routine adult health examination with abnormal findings MAMMO 3D SUZY DIAGNOSTIC BILAT W OR WO CAD Routine 12/29/2023 9:37 AM CDT ENDOSCOPY, COLON, SCREENING Routine 01/02/2017 from Last 3 Months or Most Recently Relevant to Health Maintenance Results * CBC WITH DIFFERENTIAL (12/13/2024 7:30 AM CDT) WBC 6.6 3.8 - 10.8 Thousand/u L [facility] RBC 4.34 3.80 - 5.10 Million/uL [facility] HEMOGLOBIN 13.6 11.7 - 15.5 g/dL [facility] HEMATOCRIT 42.0 35.0 - 45.0 % [facility] MCV 96.8 80.0 - 100.0 fL [facility] MCH 31.3 27.0 - 33.0 pg [facility] MCHC 32.4 32.0 - 36.0 g/dL [facility] Comment: For adults, a slight decrease in the calculated MCHC value (in the range of 30 to 32 g/dL) is most likely not clinically significant; however, it should be interpreted with caution in correlation with other red cell parameters and the patient's clinical condition. RDW 11.8 11.0 - 15.0 % [facility] PLATELETS 269 140 - 400 Thousand/u L [facility] MPV 10.4 7.5 - 12.5 fL [facility] NEUTROPHIL ABSOLUTE 3,379 1,500 - 7,800 cells/uL [facility] LYMPHOCYTE ABSOLUTE 2,026 850 - 3,900 cells/uL [facility] MONOCYTE ABSOLUTE 713 200 - 950 cells/uL [facility] EOSINOPHIL ABSOLUTE 409 15 - 500 cells/uL [facility] BASOPHILS ABSOLUTE 73 0 - 200 cells/uL [facility] NEUTROPHIL 51.2 % [facility] LYMPHOCYTES 30.7 % [facility] MONOCYTE 10.8 % [facility] EOSINOPHILS 6.2 % [facility] BASOPHILS 1.1 % [facility] Comment: FASTING:NO FASTING: NO Test Performed at: [facility] [address] [place] [address] NasrinSierra Collins MD Blood 12/13/2024 7:30 AM CDT 12/13/2024 7:30 AM CDT us Maximiliano Bullard MD HEMATOLOGY ORDERABLES Final R esult [facility] [phone] [address] * VITAMIN D 25 HYDROXY (12/13/2024 7:30 AM CDT) VITAMIN D, 25 OH, TOTAL 44 30 - 100 ng/mL [facility] Comment: Vitamin D Status 25-OH Vitamin D: Deficiency: <20 ng/mL Insufficiency: 20 - 29 ng/mL Optimal: > or = 30 ng/mL For 25-OH Vitamin D testing on patients on D2-supplementation and patients for whom quantitation of D2 and D3 fractions is required, the [facility] 25-OH VIT D, (D2,D3), LC/MS/MS is recommended: order code 46920 (patients >2yrs). See Note 1 Note 1 For additional information, please refer to http://education.Zootcard/faq/IME699 (This link is being provided for informational/ educational purposes only.) FASTING:NO FASTING: NO Test Performed at: [facility] [address] [facility] [place] [address] Letty Collins MD Blood 12/13/2024 7:30 AM CDT 12/13/2024 7:30 AM CDT us Maximiliano Bullard MD CHEMISTRY ORDERABLES Final Re sult Performing Organization Address City/[facility]/ZIP Co de Phone Number [facility] [phone] [facility] [address], [place] [address] * T3 FREE (12/13/2024 7:30 AM CDT) T3 FREE 3.1 2.3 - 4.2 pg/mL [facility] Comment: Test Performed at: [facility] [address] [place] [address] Letty Collins MD Blood 12/13/2024 7:30 AM CDT 12/13/2024 7:30 AM CDT us Maximiliano Bullard MD CHEMISTRY ORDERABLES Final Re sult Performing Organization Address [facility] Co de Phone Number [facility] [phone] [facility] [address] [place] [address] * T4 FREE (12/13/2024 7:30 AM CDT) T4 FREE 1.2 0.8 - 1.8 ng/dL [facility] Comment: Test Performed at: [facility] [address] [place] [address] Letty Collins MD Blood 12/13/2024 7:30 AM CDT 12/13/2024 7:30 AM CDT us Maximiliano Bullard MD CHEMISTRY ORDERABLES Final Re sult [facility] [phone] [facility] [address] [place] [address] * HEMOGLOBIN A1C (12/13/2024 7:30 AM CDT) Pathologist [facility] HEMOGLOBIN A1C 5.4 <5.7 % of total Hgb [facility] Comment: For the purpose of screening for the presence of diabetes: <5.7% Consistent with the absence of diabetes 5.7-6.4% Consistent with increased risk for diabetes (prediabetes) > or =6.5% Consistent with diabetes This assay result is consistent with a decreased risk of diabetes. Currently, no consensus exists regarding use of hemoglobin A1c for diagnosis of diabetes in children. According to [place] Diabetes Association (ADA) guidelines, hemoglobin A1c <7.0% represents optimal control in non- diabetic patients. Different metrics may apply to specific patient populations. Standards of Medical Care in Diabetes(ADA). ESTIMATED AVERAGE GLUCOSE (MG/DL) 108 mg/dL [facility] ESTIMATED AVERAGE GLUCOSE (MMOL/L) 6.0 mmol/L [facility] Comment: FASTING:NO FASTING: NO Test Performed at: [facility] [address] [place] [address] Letty Collins Blood 12/13/2024 7:30 AM CDT 12/13/2024 7:30 AM CDT Maximiliano Bullard MD CHEMISTRY ORDERABLES Final Re sult Performing Organization Address [facility] Phone Number [facility] [phone] [place] [address] [place] [address] * VITAMIN B12 LEVEL (12/13/2024 7:30 AM CDT) Pathologist [facility] VITAMIN B12 594 200 - 1100 pg/mL [facility] Comment: Test Performed at: [facility] [address] [place] [address] Letty Collins MD Blood 12/13/2024 7:30 AM CDT 12/13/2024 7:30 AM CDT Maximiliano Bullard MD CHEMISTRY ORDERABLES Final Re sult Performing Organization Address City/State/ZIP Co ok Phone Number [facility] [phone] [facility] [address] [place] [address] * LIPID PANEL (12/13/2024 7:30 AM CDT) Pathologist [facility] CHOLESTEROL 171 <200 mg/dL [facility] HDL 83 > OR = 50 mg/dL [facility] TRIGLYCERIDE 55 <150 mg/dL [facility] LDL CALCULATED 74 mg/dL (calc) [facility] Comment: Reference range: <100 Desirable range <100 mg/dL for primary prevention; <70 mg/dL for patients with CHD or diabetic patients with > or = 2 CHD risk factors. LDL-C is now calculated using the Nehemiah calculation, which is a validated novel method providing better accuracy than the Friedewald equation in the estimation of LDL-C. Ian FONG et al. SINDY. 2013;310(19): 0715-6244 (http://education.Zootcard/faq/FCD932) CHOL/HDL RATIO 2.1 <5.0 (calc) [facility] NON-HDL CHOLESTEROL 88 <130 mg/dL (calc) [facility] Comment: For patients with diabetes plus 1 major ASCVD risk factor, treating to a non-HDL-C goal of <100 mg/dL (LDL-C of <70 mg/dL) is considered a therapeutic option. Test Performed at: [facility] [address] Letty Collins MD Blood 12/13/2024 7:30 AM CDT 12/13/2024 7:30 AM CDT us Maximiliano Bullard MD CHEMISTRY ORDERABLES Final Re sult [facility] [phone] [facility] [address] * COMPREHENSIVE METABOLIC PANEL (12/13/2024 7:30 AM CDT) Pathologist [facility] GLUCOSE 91 65 - 139 mg/dL [facility] Comment: Non-fasting reference interval BUN 13 7 - 25 mg/dL [facility] CREATININE 0.74 0.50 - 1.03 mg/dL [facility] EGFR 94 > OR = 60 mL/min/1. 73m2 [facility] BUN/CREAT RATIO SEE NOTE: 6 - 22 (calc) [facility] Comment: Not Reported: BUN and Creatinine are within reference range. SODIUM 139 135 - 146 mmol/L [facility] POTASSIUM 4.4 3.5 - 5.3 mmol/L [facility] CHLORIDE 107 98 - 110 mmol/L [facility] CO2 26 20 - 32 mmol/L [facility] CALCIUM 9.0 8.6 - 10.4 mg/dL [facility] TOTAL PROTEIN 6.6 6.1 - 8.1 g/dL [facility] ALBUMIN 4.1 3.6 - 5.1 g/dL [facility] GLOBULIN 2.5 1.9 - 3.7 g/dL (calc) [facility] ALBUMIN/GLOBULIN RATIO 1.6 1.0 - 2.5 (calc) [facility] BILIRUBIN TOTAL 0.4 0.2 - 1.2 mg/dL [facility] ALKALINE PHOSPHATASE 68 37 - 153 U/L [facility] AST 15 10 - 35 U/L [facility] ALT 15 6 - 29 U/L [facility] Comment: Test Performed at: [place] [address] [place] [address] Letty Collins MD Blood 12/13/2024 7:30 AM CDT 12/13/2024 7:30 AM CDT us Maximiliano Bullard MD CHEMISTRY ORDERABLES Final Re sult [facility] [phone] [facility] [address] [place] [address] * MAMMO 3D SUZY DIAGNOSTIC BILAT W [...] Maintenance Insurance BCBS BLUE ACCESS/TRUE BLUE PPO [address] RX [facility] Commercial RX [facility] Care Teams Family Protection Specialist Relationship Specialty Start Date End Date Maximiliano Bullard MD PCP - General Internal Medicine 03/07/16
--- OUTSIDE RECORDS SUMMARY | 2025-01-23 17:00 | XMS_ITS | Encounter Summary ---
Author Organization [facility] Address [address] [place] [address] Care Team Providers Care Electronic System Engineer Name Role Phone Maximiliano Bullard MD Primary Care Provider [phone] Reason for Visit * Reason Comments Results Encounter Details Date Type Department Care Team (Late st Contact Info) Description 10/23/2023 Telephone [facility] [address] [place] [address] Maximiliano Bullard MD [address] [place] [address] [address] [place] [address] Results Social History Tobacco Use Types Packs/Day Years Used Date Smoking Tobacco: Never Passive Smoke Exposure: Never Smokeless Tobacco: Never Alcohol Use Standard Drinks/Week Comments Yes 5 (1 standard drink = 0.6 oz pur e alcohol) Comments No Sex and Gender Information Value Date Recorded Sex Assigned at Not on file Legal Sex Female 3:31 AM BURNER OPERATOR Gender Identity Not on file Sexual Orientation Not on file documented as of this encounter Miscellaneous Notes * Telephone Encounter - Caridad Carvalho LPN - 10/23/2023 3:27 PM CST Spoke with pt and informed results have not been received., ER OPERATOR * Telephone Encounter - Taylor Fuentes - 10/23/2023 3:18 PM CST Copied from [facility] #[id number]. Topic: CPA Information Request - Results >> Oct 23, 2023 3:17 PM Taylor Faustin wrote: Caller is requesting results: Patient has Question about Results Caller Name: Bianca Recio Patient/Caregiver Callback Number: [phone] (home) Call Notes: Patient is calling to discuss the results of the gallbladder test. ER OPERATOR documented in this encounter Plan of Treatment Upcoming Encounters Date Type Department Care Team (Late st Contact Info) Description 04/16/2025 3:00 PM CDT Office Visit [facility] [place] [address] [place] [address] Maximiliano Bullard MD [address] [place] [address] documented as of this encounter Visit Diagnoses Not on filedocumented in this encounter Care Teams Electronic System Engineer Relationship Specialty Start Date End Date Maximiliano Bullard MD PCP - General Internal Medicine 03/07/16 documented as of this encounter
--- OUTSIDE RECORDS SUMMARY | 2025-01-23 17:00 | XMS_ITS | Encounter Summary ---
Author Organization [facility] Address [address] [place] [address] Care Team Providers Care Power Generation Plant Operator Name Role Phone Maximiliano Farrell MD Primary Care Provider [phone] Reason for Visit * Reason Onset Date Comments Gland Swelling 03/16/2022 Encounter Details Date Type Department Care Team (Late st Contact Info) Description 03/16/2022 Telephone [facility] Primary Care [address] [place] [address] Maximiliano Farrell MD [address] [place] [address] [address] [place] [address] Gland Swelling Social History Tobacco Use Types Packs/Day Years Used Date Smoking Tobacco: Never Smokeless Tobacco: Never Alcohol Use Standard Drinks/Week Comments Yes 5 (1 standard drink = 0.6 oz pur e alcohol) Comments No Sex and Gender Information Value Date Recorded Sex Assigned at Not on file Legal Sex Female 3:31 AM [employer] Gender Identity Not on file Sexual Orientation [...] to get in sooner Call back Number: [phone] (home) documented in this encounter Plan of Treatment Upcoming Encounters Date Type Department Care Team (Late st Contact Info) Description 04/16/2025 3:00 PM CDT Office Visit [facility] Primary Care [address] [place] [address] Maximiliano Farrell MD [address] [place] [id number] documented as of this encounter Visit Diagnoses Not on filedocumented in this encounter Care Teams Power Generation Plant Operator Relationship Specialty Start Date End Date Maximiliano Farrell MD PCP - General Internal Medicine 03/07/16 documented as of this encounter
[2025-01-23 17:18] VITALS: BP 139/73; PULSE 74; RESP 16; TEMP 36.3; O2SAT 98
--- NOTE | 2025-01-23 17:19 | ED_ITS ---
HPI - URI/Sore Throat General Chief Complaint: Upper Respiratory Infection Stated Complaint: sore throat Time Seen by Provider: 01/23/25 17:19 History of Present Illness HPI Narrative: 59 year female presented for complaint of sore throat and swollen neck. Says yesterday her throat felt scratchy, runny nose, and she felt malaise. today she noticed swelling to the front of the neck. Took antihistamine. Denies difficulty swallowing, cough, sob, n/v/d/f/c. Related Data Home Medications ?Medication ?Instructions ?Recorded ?Confirmed ?Last Taken ?Type estradiol 0.075 mg/24 hr weekly 1 patch transdermal WEEKLY 03/29/20 02/16/23 Unknown History transdermal patch levothyroxine 137 mcg tablet 137 mcg PO DAILY 03/29/20 02/16/23 Unknown History (Synthroid) linaclotide 72 mcg capsule 72 mcg PO DAILY 03/29/20 02/16/23 Unknown History (Linzess) omeprazole 40 mg capsule,delayed 40 mg PO DAILY 03/29/20 02/16/23 Unknown History release cyanocobalamin (vitamin B-12) 1,000 mcg IM MONTHLY 02/05/23 02/16/23 Unknown History 1,000 mcg/mL injection solution metformin 500 mg tablet 500 mg PO DAILY 02/05/23 02/16/23 Unknown History bupropion HCl 150 mg 24 hr tablet, mg PO 05/07/24 05/07/24 Unknown History extended release pantoprazole 40 mg tablet,delayed mg PO 05/07/24 Unknown History release topiramate 25 mg tablet mg 05/07/24 Unknown History Allergies Allergy/AdvReac Type Severity Reaction Status Date / Time ciprofloxacin Allergy Unknown THROAT Verified 01/23/25 17:25 SWELLS Penicillins Allergy Unknown throat Verified 01/23/25 17:25 swells Sulfa (Sulfonamide Allergy Unknown THROAT Verified 01/23/25 17:25 Antibiotics) CLOSES clindamycin Allergy Swelling Verified 01/23/25 17:25 loratadine (From Claritin) Allergy Swelling Verified 01/23/25 17:25 of Lip/Tongue/Throat Review of Systems Review of Systems: CONSTITUTIONAL: Denies body aches, fever, chills, or sweats. EYES: Denies visual changes, redness, or discharge. ENT: reports sore throat Denies rhinorrhea, congestion, or otalgia. CARDIOVASCULAR: Denies chest pain, palpitations, or edema. RESPIRATORY: Denies dyspnea. GASTROINTESTINAL: Denies abdominal pain, nausea, vomiting, or diarrhea. SKIN: Denies rash NEUROLOGIC: Denies headache PMFSH Past Medical History Medical History Breast cancer 2020 delivery delivered X2 History of gastroesophageal reflux (GERD) Surgical History Surgical History H/O section History of hysterectomy History of lumpectomy of left breast Benign History of shoulder surgery LT Family History Family History Father Atrial fibrillation Mother History of gastroesophageal reflux (GERD) Lazaro disease Social History Social History Smoking status: Never smoker Tobacco type: cigarettes Second hand tobacco smoke exposure: Yes Alcohol intake: current Substance use: never Living arrangements: with family Occupation/Education: occupation Gender identity (if verbalized by the patient): Female Sexual Orientation (if Verbalized by the Patient): Straight or Heterosexual Exam Narrative: GENERAL: well-appearing, no acute distress. EYES: conjunctivae clear ENT: Mucous membranes moist. TM pearly luo with normal light reflex bilaterally; no tragal tenderness. Oropharynx not erythematous without lesions. Tonsils absent No drooling, no hoarseness, no trismus, uvula midline. No tripod positioning, hot potato voice, or soft palate swelling. NECK: Supple. No lymphadenopathy CHEST: Clear to auscultation, breath sounds equal. No respiratory distress, speaks in full sentences. HEART: Regular rate and rhythm. No murmur heard. SKIN: Warm, dry, no rash. NEURO: Alert and oriented x3. Course Course Emergency Course: Patient is aware of diagnosis, understands and agrees to treatment plan. Anticipatory guidance given. Patient agrees to follow-up as directed and is aware of reasons to seek care at the emergency department. Portions of this record may have been created with voice recognition software Level of Care: Express Care Visit MDM - URI/Sore Throat MDM Narrative Medical decision making narrative: Negative strep result reviewed with pt. Advise supportive treatments. Patient is appropriate for outpatient treatment and follow-up. Differential Diagnosis Differential diagnosis: Likely upper respiratory infection, viral infection and pharyngitis Discharge Plan Discharge Clinical Impression: Pharyngitis Patient Disposition: Home Condition: Stable Instructions: Antibiotic Form, Strep Throat (ED) Additional Instructions: Rapid strep swab was negative today You will be notified in a few days if the culture comes back positive for strep, and appropriate antibiotics will be called in at that time. if symptoms are due to a viral illness, it is not treated with antibiotics. Viral symptoms can be present for up to 10-14 days. Recommendations: Flonase spray and Zyrtec for sinus congestion Tylenol every 8 hours as needed for pain/fever Soft foods, cool liquids, warm tea. Gargle with warm saltwater twice a day. Chloraseptic spray and throat lozenges. Rest and stay hydrated. --Follow up with your PCP; call to schedule an appointment --Go to the ER immediately if you cannot swallow your saliva, trouble breathing/wheezing, throat swelling, pain is persistent and severe etc Patient Language: French Prescriptions: No Action levothyroxine [Synthroid] 137 mcg Tablet 137 mcg PO DAILY omeprazole 40 mg Capsule,Delayed Release(Dr/Ec) 40 mg PO DAILY estradiol 0.075 mg/24 hr Patch Weekly 1 patch TRANSDERMAL WEEKLY Linzess 72 mcg Capsule 72 mcg PO DAILY metformin 500 mg tablet 500 mg PO DAILY cyanocobalamin (vitamin B-12) 1,000 mcg/mL solution 1,000 mcg IM MONTHLY topiramate 25 mg tablet pantoprazole 40 mg tablet,delayed release (DR/EC) PO bupropion HCl 150 mg tablet extended release 24 hr PO fluconazole [Diflucan] 150 mg tablet 150 mg PO Q72H Qty: 2 0RF Rx Instructions: as a single dose ibuprofen 800 mg tablet 800 mg PO TID PRN (Reason: pain) Qty: 15 0RF Follow-up/Referrals: Aleah,Maxiimliano Aranda MD [Primary Care Provider] - Time of Disposition: 17:30
[2025-01-23 17:27] LABS: EDSTREPNEGPOS1 Negative (Negative)
== END 2025-01-23 17:34 | disposition home or self-care (01) ==
PROVIDERS: Emergency Provider Nurse Practitioner Family; PCP Internal Medicine
DX: J02.9 Acute pharyngitis, unspecified (principal); K21.9 Gastro-esophageal reflux disease without esophagitis; Z85.3 Personal history of malignant neoplasm of breast; Z90.12 Acquired absence of left breast and nipple
CPT/HCPCS: 87081; 87880; 99213; G0463